=== PATIENT | female | born 1940 | race Caucasian/White ===

== ENCOUNTER 2016-08-22 08:20 | Observation (INO) ==
[2016-08-22 09:08] LABS: Basophils % 0.6 %; Eosinophils # 0.3 K/mcL (0.0-0.6); Eosinophils % 4.7 %; Hematocrit 38.7 % (35.3-44.9); Hemoglobin 12.9 g/dL (11.5-15.4); Immature Granulocytes % 0.3 % (0-4); Lymphocytes # 0.6 K/mcL (0.6-4.6); Lymphocytes % 8.6 %; Mean Corpuscular HGB Conc 33.3 g/dL (31.6-35.5); Mean Corpuscular Hemoglobin 29.2 pg (28.0-33.3); Mean Corpuscular Volume 87.6 fL (83.0-100.0); Mean Platelet Volume 9.8 fL (9.4-12.4); Monocytes # 0.5 K/mcL (0.0-1.3); Monocytes % 7.5 %; Neutrophils # 5.6 K/mcL (1.6-8.9); Platelet Count 188 K/mcL (140-400); Red Blood Count 4.42 M/mcL (3.82-4.97); Segmented Neutrophils % 78.3 %
--- NOTE | 2016-08-22 09:13 | Emergency Department Note ---
Disposition Clinical Impression: CHF (congestive heart failure) Qualifiers: Congestive heart failure type: unspecified congestive heart failure type Congestive heart failure chronicity: unspecified congestive heart failure chronicity Qualified Code(s): I50.9 - Heart failure, unspecified Dyspnea Qualifiers: Dyspnea type: dyspnea on exertion Qualified Code(s): R06.09 - Other forms of dyspnea Disposition: Admitted As Inpatient Condition: Good Time of Disposition: 11:46 SOB HPI - General Chief Complaint: ED Shortness of Breath/Dyspnea Stated Complaint: shortness of breath Time Seen by Provider: 08/22/16 08:44 Source: patient Mode of arrival: ambulatory Limitations: no limitations Nursing Notes Reviewed: Yes Vital Signs Reviewed: Yes - History of Present Illness Pt Subjective Complaint: shortness of breath Onset (ago): day(s) Consistency/Duration: gradually worsening Improves with: nothing Worsens with: exertion Known history of: COPD, congestive heart failure, other (lung cancer) Associated symptoms: Reports: cough. Denies: chest pain, fever, sputum production, nausea/vomiting, abdominal pain Treatment prior to arrival: oxygen, other (had seen PCP three days ago, and Dr. Branch's office (cardiolgoist) this am, sent to ED from there) Cough present: Yes Cough Description: Non-Productive - Related Data Home Medications Medication Instructions Recorded Confirmed Clopidogrel [Plavix] 75 mg PO DAILY 05/15/15 08/22/16 Aspirin Enteric Coated [Aspirin EC] 81 mg PO DAILY 07/17/15 08/22/16 Ergocalciferol (VITAMIN D2) 2,000 unit PO DAILY 07/17/15 08/22/16 [Vitamin D2] Isosorbide MONOnitrate (24 HR) 30 mg PO DAILY 06/08/16 08/22/16 [Imdur] Levothyroxine [Synthroid] 75 mcg PO DAILY 06/08/16 08/22/16 Diltiazem CD (24hr) [Cardizem CD] 120 mg PO DAILY 08/22/16 08/22/16 Oxygen 2 l .ROUTE AD 08/22/16 08/22/16 Allergies Allergy/AdvReac Type Severity Reaction Status Date / Time No Known Allergies Allergy Verified 08/22/16 08:29 Constitutional: Denies: fever, chills, weakness ENT ED: Denies: throat pain, congestion Cardiovascular: Denies: chest pain Respiratory: Reports: as per HPI. Denies: dyspnea Gastrointestinal: Denies: abdominal pain Genitourinary: Denies: dysuria Musculoskeletal: Denies: back pain Integumentary: Denies: rash Neurological: Denies: headache Psychiatric: Denies: anxiety, depression Hematological/Lymphatic: Denies: easy bleeding Allergic/Immunologic: Denies: facial swelling Past Medical History - Past Medical History Medical history: Reports: cancer, CHF, COPD, coronary artery disease, diabetes, hypertension, myocardial infarction, renal disease Surgical history: Reports: angioplasty/stent, other Psychiatric history: Reports: no psych history [employer] history: Reports: non-contributory - Social History Smoking Status: Former smoker Smokeless Tobacco Status: No Alcohol use: Reports: none Drug use: Reports: none Physical Exam - General Limitations: no limitations General appearance: alert, in no apparent distress - Head Head exam: normocephalic - Eye Eye exam: Present: EOMI. Absent: conjunctival injection - ENT ENT exam: mucous membranes moist - Neck Neck exam: Present: full ROM - Chest Chest inspection: Present: symmetric chest wall rise - Respiratory Respiratory exam: Present: other (lungs soudns course, without wheezing or rales ; equal bilaterally). Absent: respiratory distress, wheezes - Cardiovascular Cardiovascular exam: Present: regular rate. Absent: tachycardia - Abdominal Exam Abdominal exam: Present: soft, Non-Tender - Extremities Exam Extremities exam: Present: normal inspection, full ROM, normal capillary refill - Back Exam Back exam: Present: full ROM - Neurological Exam Neurological exam: Present: alert - Psychiatric Psychiatric exam: Present: normal affect, normal mood - Skin Skin exam: Present: warm, dry, intact, normal color. Absent: rash, cyanosis, diaphoresis Course Course Narrative: 76-year-old female that ambulates to exam room with complaints of dyspnea. She states her shortness of breath has been occurring over the past week, but had worsened over the night. She had seen her primary care doctor on Wednesday, and her publicity manager this morning. Her publicity manager, Dr. Branch, had advised the patient be seen in the emergency department. She reported Dr. Branch was concerned for pulmonary embolism, and this concerned for her CHF. Patient seen and examined. Workup initiated. - Reevaluation(s) Reevaluation #1: I discussed patient with Dr. Weldon who also had a stomach palpation. Patient was seen earlier in Dr. Kevin's office today and was sent emergency department. Dr. Branch and contact the department and talked with Dr. Humphries. Dr. Weldon reports that Dr. Branch was concerned for a pulmonary embolism, and mentioned that there was less concerned for wheezing or CHF. Examination patient did appear dyspnea worse with exertion and conversation, and lungs sounds were coarse. He will administer IV steroids and breathing treatment. Patient does have a history of CHF, and does have an elevated creatinine. We will administer fluids, and consider VQ or CTA. We will plan for admission. Time: 10:31 Reevaluation #2: Discussed patient with CT staff, who mentioned the patient's GFR and creatinine are concerning and would likely need okay from radiologist. Radiologist contacted no answer left message. Time: 11:23 Reevaluation #3: I discussed my discussion with the radiologist with Dr. Weldon, specifically recommendations were no CT at this time but VQ scan. Patient vitals are stable. Not tachycardic. She appears in no acute distress. She states her dyspnea has improved. Will will recommend admission for CHF exacerbation, and discussed with hospitalist need for V/Q imaging for concern for PE. Pt was discussed with hospitalist Dr. Salcido, who advised IV lasix and agreed to accept patient. Pt reports no improvement after duoneb and iv steroids. Time: 11:45 - Consultations Consultation #1: Radiologist was contacted, and I spoke with and discussed pt with radiologist Valentin Saravia, who advised that worsening renal failure from contrast is most likely in patients with this level chronic kidney disease. She advised a VQ scan initially, to determine if it is inconclusive before CTA. Time: 11:32 Vital Signs Temperature 97.4 F L 08/22/16 08:26 Pulse Rate 98 08/22/16 08:26 Respiratory Rate 20 08/22/16 08:26 Blood Pressure 161/78 08/22/16 08:26 O2 Sat by Pulse Oximetry 94 08/22/16 08:26 Temperature 97.6 F 08/22/16 13:58 Pulse Rate 89 08/22/16 13:58 Respiratory Rate 24 08/22/16 13:58 Blood Pressure 143/83 08/22/16 13:58 O2 Sat by Pulse Oximetry 95 08/22/16 13:58 Oxygen Delivery Oxygen Delivery Nasal Cannula Shortness of Breath/Dyspnea - MDM Narrative Medical decision making narrative: Chest X-Ray 08/22/16 08:46 IMPRESSION: 1. Stable volume loss, scarring and posttreatment change of the left lung compared to previous radiographs and previous CT. 2. No superimposed acute process is identified. 3. Emphysema. D/ / 08/22/2016 09:00:45 Benitez Morejon MD / bcarter Interpreting Provider: Benitez Morejon MD All Lab Results (24 Hours) 08/22/16 08/22/16 08/22/16 Range/Units 08:56 08:56 08:56 WBC 7.2 (4.3-11.1) K/mcL RBC 4.42 (3.82-4.97) M/mcL Hgb 12.9 (11.5-15.4) g/dL Hct 38.7 (35.3-44.9) % MCV 87.6 (83.0-100.0) fL MCH 29.2 (28.0-33.3) pg MCHC 33.3 (31.6-35.5) g/dL RDW 14.0 (11.5-14.5) % Plt Count 188 (140-400) K/mcL MPV 9.8 (9.4-12.4) fL Immature Gran % 0.3 (0-4) % Seg Neutrophils % 78.3 % Lymphocytes % 8.6 % Monocytes % 7.5 % Eosinophils % 4.7 % Basophils % 0.6 % Neutrophils # 5.6 (1.6-8.9) K/mcL Lymphocytes # 0.6 (0.6-4.6) K/mcL Monocytes # 0.5 (0.0-1.3) K/mcL Eosinophils # 0.3 (0.0-0.6) K/mcL Basophils # 0.0 (0.0-0.2) K/mcL Sodium 138 (136-145) mEq/L Potassium 3.5 (3.5-4.5) mEq/L Chloride 107 (98-109) mEq/L Carbon Dioxide 22 (19-29) mEq/L BUN 27 H (7-20) mg/dL Creatinine 1.75 H (0.57-1.11) mg/dL Est GFR ( Amer) 34 L (> 60) Est GFR (Non-Af Amer) 28 L (> 60) BUN/Creatinine Ratio 15 (6-26) Glucose 157 H (70-99) mg/dL Calculated Osmolality 294 (280-300) Calcium 9.8 (8.6-10.8) mg/dL Troponin I 0.02 (0-0.03) ng/mL B-Natriuretic Peptide (0-100) pg/mL 08/22/16 Range/Units 08:56 WBC (4.3-11.1) K/mcL RBC (3.82-4.97) M/mcL Hgb (11.5-15.4) g/dL Hct (35.3-44.9) % MCV (83.0-100.0) fL MCH (28.0-33.3) pg MCHC (31.6-35.5) g/dL RDW (11.5-14.5) % Plt Count (140-400) K/mcL MPV (9.4-12.4) fL Immature Gran % (0-4) % Seg Neutrophils % % Lymphocytes % % Monocytes % % Eosinophils % % Basophils % % Neutrophils # (1.6-8.9) K/mcL Lymphocytes # (0.6-4.6) K/mcL Monocytes # (0.0-1.3) K/mcL Eosinophils # (0.0-0.6) K/mcL Basophils # (0.0-0.2) K/mcL Sodium (136-145) mEq/L Potassium (3.5-4.5) mEq/L Chloride (98-109) mEq/L Carbon Dioxide (19-29) mEq/L BUN (7-20) mg/dL Creatinine (0.57-1.11) mg/dL Est GFR ( Amer) (> 60) Est GFR (Non-Af Amer) (> 60) BUN/Creatinine Ratio (6-26) Glucose (70-99) mg/dL Calculated Osmolality (280-300) Calcium (8.6-10.8) mg/dL Troponin I (0-0.03) ng/mL B-Natriuretic Peptide 943 H (0-100) pg/mL - Differential Diagnosis Likely: acute exacerbation of chronic obstructive airways disease, congestive heart failure, pneumonia, pulmonary embolism, arrhythmia - Medical Records Medical records reviewed: Yes I reviewed the patient's medical records. - Lab Data Lab results reviewed: Yes I reviewed the patient's lab results. Result diagrams: 08/22/16 08:56 08/22/16 08:56 Lab Results 08/22/16 08/22/16 08/22/16 Range/Units 08:56 08:56 08:56 WBC 7.2 (4.3-11.1) K/mcL RBC 4.42 (3.82-4.97) M/mcL Hgb 12.9 (11.5-15.4) g/dL Hct 38.7 (35.3-44.9) % MCV 87.6 (83.0-100.0) fL MCH 29.2 (28.0-33.3) pg MCHC 33.3 (31.6-35.5) g/dL RDW 14.0 (11.5-14.5) % Plt Count 188 (140-400) K/mcL MPV 9.8 (9.4-12.4) fL Immature Gran % 0.3 (0-4) % Seg Neutrophils % 78.3 % Lymphocytes % 8.6 % Monocytes % 7.5 % Eosinophils % 4.7 % Basophils % 0.6 % Neutrophils # 5.6 (1.6-8.9) K/mcL Lymphocytes # 0.6 (0.6-4.6) K/mcL Monocytes # 0.5 (0.0-1.3) K/mcL Eosinophils # 0.3 (0.0-0.6) K/mcL Basophils # 0.0 (0.0-0.2) K/mcL Sodium 138 (136-145) mEq/L Potassium 3.5 (3.5-4.5) mEq/L Chloride 107 (98-109) mEq/L Carbon Dioxide 22 (19-29) mEq/L BUN 27 H (7-20) mg/dL Creatinine 1.75 H (0.57-1.11) mg/dL Est GFR ( Amer) 34 L (> 60) Est GFR (Non-Af Amer) 28 L (> 60) BUN/Creatinine Ratio 15 (6-26) Glucose 157 H (70-99) mg/dL Calculated Osmolality 294 (280-300) Calcium 9.8 (8.6-10.8) mg/dL Troponin I 0.02 (0-0.03) ng/mL B-Natriuretic Peptide (0-100) pg/mL 08/22/16 Range/Units 08:56 WBC (4.3-11.1) K/mcL RBC (3.82-4.97) M/mcL Hgb (11.5-15.4) g/dL Hct (35.3-44.9) % MCV (83.0-100.0) fL MCH (28.0-33.3) pg MCHC (31.6-35.5) g/dL RDW (11.5-14.5) % Plt Count (140-400) K/mcL MPV (9.4-12.4) fL Immature Gran % (0-4) % Seg Neutrophils % % Lymphocytes % % Monocytes % % Eosinophils % % Basophils % % Neutrophils # (1.6-8.9) K/mcL Lymphocytes # (0.6-4.6) K/mcL Monocytes # (0.0-1.3) K/mcL Eosinophils # (0.0-0.6) K/mcL Basophils # (0.0-0.2) K/mcL Sodium (136-145) mEq/L Potassium (3.5-4.5) mEq/L Chloride (98-109) mEq/L Carbon Dioxide (19-29) mEq/L BUN (7-20) mg/dL Creatinine (0.57-1.11) mg/dL Est GFR ( Amer) (> 60) Est GFR (Non-Af Amer) (> 60) BUN/Creatinine Ratio (6-26) Glucose (70-99) mg/dL Calculated Osmolality (280-300) Calcium (8.6-10.8) mg/dL Troponin I (0-0.03) ng/mL B-Natriuretic Peptide 943 H (0-100) pg/mL - Radiology Data Radiology results reviewed: Yes I reviewed the patient's radiology results. Emphysematous changes, no acute cardiopulmonary concerns, notable treatment scarring - EKG Data EKG attestation: Yes I reviewed and interpreted this EKG. EKG results narrative: Sinus rhythm with occasional PVCs, left ventricular hypertrophy Attestation Statement - Attestation Attestation: I personally interviewed examined this patient and my medical decision-making was reviewed with the DIRECTOR CLINICAL APPLICATIONS/PA/Advanced Practice Nurse/Resident Physician. I agree with the documented findings, disposition and treatment plan as described except to the extent set forth below. Disposition is a 76-year-old female with a history of CHF, COPD, CAD who presents to the emergency department sent by her publicity manager, Dr. Branch, for shortness of breath. Patient had been seen in his office this morning for complaints of shortness of breath, patient also has a history of cancer and he was concerned about the possibility for PE creating her shortness of breath. He did not feel at times his examination that the patient was short of breath secondary to her CHF history. Patient also with history of COPD. Arrival to the ED patient was in mild respiratory distress, room air sats were 92-94% and she is not on home O2. Patient with increased work of breathing and conversational dyspnea on initial assessment. Patient with coarse breath sounds throughout bilateral lung jonas and heart regular rate and rhythm. Patient with lower extremity edema 1+ pitting bilaterally. Patient denies any complaints of chest pain pressure or heaviness, no palpitations, no cough associated with this shortness of breath, no fevers or chills, no other associated symptoms. Patient was placed on supplemental O2 with improvement in her room air sats, placed on rn cardiac rehab and EKG was obtained. EKG did not show any acute ST- T wave changes. Labs were drawn and sent portal chest x-ray was obtained. Patient also received aerosols and IV steroids for possible COPD exacerbation contributing to her shortness of breath. I agree with her physical exam findings as documented. Patient with gradual improvement throughout her ED course. Patient remained hemodynamically stable throughout her ED course with no tachycardia or hypotension. Patient's labs were unremarkable, chronic renal insufficiency. BNP was elevated. Chest x-ray showed no acute process, no infiltrates or effusions, no evidence of CHF, changes consistent with emphysema. Patient denied much improvement following aerosols and steroids, but clinically she is much improved with decrease in her respiratory rate, stable vital signs and much less work of breathing. Did speak with radiology in regards to obtaining a CTA to rule out PE as patient was sent by Dr. Branch for this as a possible etiology of her shortness breath. Due to her renal function the radiologist will not approve a CTA this time even with fluid resuscitation. Suggested VQ scan. Patient clinically much improved from arrival, suspect a combination of acute exacerbation of COPD as well as mild CHF exacerbation. Spoke with the hospitalist who accepted the patient for admission, relayed concerns of patient' s publicity manager and we will reevaluate and determine if patient should ultimately have the CT scan prior to discharge. Hospitalist requested IV Lasix and except patient for admission. Patient clinically much improved and vital signs stable at this time.
[2016-08-22 09:25] LABS: Calcium 9.8 mg/dL (8.6-10.8); Potassium 3.5 mEq/L (3.5-4.5)
[2016-08-22] MEDS ORDERED: Ipratropium/Albuterol Neb 3 ML IH ONE ×2 (10:13→10:23)
[2016-08-22] MEDS ORDERED: MethylPREDNISolone 40 MG/ML VIAL IVP ONE (10:23)
[2016-08-22] MEDS ORDERED: Furosemide 40 MG/4 ML VIAL IVP ONE (11:44)
[2016-08-22] MEDS ORDERED: *HR* Morphine 2 MG/ML SYRINGE IVP PRN (14:30)
[2016-08-22] MEDS ORDERED: Ondansetron 4 MG/2 ML VIAL IVP PRN (14:30)
[2016-08-22] MEDS ORDERED: Naloxone 0.4 MG/ML INJ IVP PRN (14:30)
[2016-08-22] MEDS ORDERED: *HR* HYDROcodone/Acet 5/325 mg TABLET PO PRN (14:30)
[2016-08-22] MEDS ORDERED: Acetaminophen 325 MG TABLET PO PRN (14:30)
--- NOTE | 2016-08-22 14:51 | Internal Med History&Physical ---
<Shen Kaur - Last Filed: 08/22/16 17:51> Date of Encounter: 08/22/16 Time of Encounter: 14:00 Assessment and Plan (1) Acute exacerbation of CHF (congestive heart failure) Current visit: Yes Status: Acute Patient presents with acute exacerbation of congestive heart failure. Currently patient does not appear to be fluid overloaded and lower extremities are negative for pedal edema bilaterally. Fluid restriction diet of 1.5 L daily and renal diet ordered. Will monitor I&O and daily weight. Patient was taken off Lasix due to stage IV CKD, so will monitor for signs of edema and fluid overload. Qualifiers: Congestive heart failure type: unspecified congestive heart failure type Qualified Code(s): I50.9 - Heart failure, unspecified (2) Acute exacerbation of chronic obstructive pulmonary disease (COPD) Current visit: Yes Status: Acute Patient presents with symptoms of acute exacerbation of chronic obstructive pulmonary disease. Patient reports extreme shortness of breath with exertion. There is suspicion of possible PE due to patient's symptomotoogy. Will order D- dimer stat and bilateral venous Doppler of lower extremities. Will consider CTA with contrast based on venous Doppler and d-dimer results (will administer acetylcystine/IV fluids prior to CTA due to patient's renal function). DuoNebs ordered every 4, supplemental O2 with titration and continuous SPO2 monitoring, monitor patient and vital signs, falls precautions/up with assist/bedrest with bathroom privileges status. (3) Hyperlipidemia Current visit: Yes Status: Chronic Patient presents with history of chronic hyperlipidemia. Will order lipid panel. Qualifiers: Hyperlipidemia type: pure hypercholesterolemia Qualified Code(s): E78.00 - Pure hypercholesterolemia, unspecified; E78.0 - Pure hypercholesterolemia (4) Diabetes Current visit: Yes Status: Chronic Patient presents with history of chronic diabetes. Patient reports she was taken off hyperglycemics due to stage IV CKD. Blood glucose monitoring every 6. Qualifiers: Diabetes mellitus type: type 2 Diabetes mellitus complication status: with unspecified complications Diabetes mellitus group home insulin use: unspecified group home insulin use status Qualified Code(s): E11.8 - Type 2 diabetes mellitus with unspecified complications (5) Hypertension Current visit: Yes Status: Chronic Patient presents with history of chronic hypertension. Will monitor patient and vital signs. Qualifiers: Hypertension type: essential hypertension Qualified Code(s): I10 - Essential (primary) hypertension (6) Hypothyroidism Current visit: Yes Status: Chronic Reason presents with history of chronic hypothyroidism. Continue Synthroid. Qualifiers: Hypothyroidism type: unspecified Qualified Code(s): E03.9 - Hypothyroidism , unspecified (7) CAD (coronary artery disease) Current visit: Yes Status: Chronic Patient also presents with history of coronary artery disease with reported SD in 2015 and placement of one stent. Will continue aspirin therapy, Plavix, Cardizem, and isosorbide. Qualifiers: Coronary Disease-Associated Artery/Lesion type: [place] artery [place] vs. transplanted heart: [place] heart Associated angina: without angina Qualified Code(s): I25.10 - Atherosclerotic heart disease of [place] coronary artery without angina pectoris (8) DVT prophylaxis Current visit: No Status: Acute Patient to receive DVT prophylaxis due to admission protocol and current risk factors. Lovenox 30 mg SQ 06:00 due to stage IV CKD. Internal Medicine - H&P: HPI Chief complaint: SOB w/exertion Admitted From: Emergency Dept Plans for Post Hospital Care: Home History of present illness: Mrs. Piña is a 76 year old female who presents from the ED with chief complaint of extreme shortness of breath with exertion which has been ongoing but became much worse last night. Patient states she is on 2 L of home oxygen normally but required more last night due to SOB. Patient denies use of BiPAP or CPAP at home. Patient states she has cough related to her COPD but does not produce sputum. Patient states she smoked half pack per day but quit in May 2014 when she had a heart attack (angioplasty with 1 stent placement). Patient denies chest pain, fever, nausea, vomiting, abdominal pain, generalized weakness , excessive sputum production, diaphoresis, presyncope, or syncope. Mrs. Piña has history of lung cancer which was diagnosed in 2014 for which she takes chemotherapy every 2 weeks. She states lung cancer was originally in her left lung which was treated successfully, but then moved to her right lung. Patient also has history of CHF, COPD, CAD, diabetes, hypertension, myocardial infarction, thyroid disease, and stage IV chronic kidney disease. Patient is at moderate risk for respiratory decline based on her risk factors of CHF and COPD and will be placed as observation status with continuous cardiac telemetry , supplemental O2 with titration if SPO2 less than 92%, continuous SPO2 monitoring, fluid restriction diet (1.5L daily) and renal diet. Will check D- dimer and bilateral venous Doppler stat. EV echocardiogram to be orderd. We will monitor I&O and daily weight and continue patient's home medications. Time spent with patient >40 minutes. Past Med Surg Social Fam HX - Past Medical History Source: patient Medical history: cancer, CHF, COPD, coronary artery disease, diabetes, hypertension, myocardial infarction, renal disease Psychiatric history: no psych history - Past Surgical History Surgical History: angioplasty/stent, other (Tubal ligation) - Social History Smoking Status: Former smoker Packs per day: 1/2 - 1 PPD Reports quitting in May 2014 Smokeless Tobacco Status: No Alcohol use: none Drug use: none Occupational status: previously employed Current living situation: Home, With Family Activity Level: Independent ambulation Recent Out of Country Travel Within the Last 8 Weeks: No Exposure or Possible Exposure to Illness During Travel: No - Family History Mother Race: Family Member Ethnicity: Non- Living Status: Father Race: Family Member Ethnicity: Non- Living Status: Hx Family Cardiac Disorders: Yes (Aneurysm) Sister Race: Family Member Ethnicity: Non- Age at : 79 Cause of : Unknown Brother Race: Family Member Ethnicity: Non- Living Status: Age at : 75 Cause of : SD Hx Family Cardiac Disorders: Yes (SD) Internal Medicine - H&P: Meds Clopidogrel [Plavix] 75 mg PO DAILY 05/15/15 [History] Aspirin Enteric Coated [Aspirin EC] 81 mg PO DAILY 07/17/15 [History] Ergocalciferol (VITAMIN D2) [Vitamin D2] 2,000 unit PO DAILY 07/17/15 [History] Isosorbide MONOnitrate (24 HR) [Imdur] 30 mg PO DAILY 06/08/16 [History] Levothyroxine [Synthroid] 75 mcg PO DAILY 06/08/16 [History] Diltiazem CD (24hr) [Cardizem CD] 120 mg PO DAILY 08/22/16 [History] Oxygen 2 l .ROUTE AD 08/22/16 [History] Allergies No Known Allergies Allergy (Verified 08/22/16 08:29) All Systems PM: A 10-system review of systems was performed and is negative for pertinent findings except as documented above in the HPI. - Constitutional Constitutional: no chills, no fever(s), no night sweats - EENT Eyes: no change in vision, no discharge, no pain, no photophobia Ears: no ear discharge, no ear pain, no tinnitus Nose, mouth and throat: no dysphagia, no nasal discharge, no neck pain, no sore throat - Breasts Breasts: as per HPI - Cardiovascular Cardiovascular ROS IM: as per HPI, dyspnea on exertion, no chest pain, no diaphoresis, no dyspnea, no lightheadedness, no palpitations, no syncope - Respiratory Respiratory: as per HPI, cough, dyspnea on exertion - Gastrointestinal Gastrointestinal: no abdominal pain, no diarrhea, no hematemesis, no hematochezia, no melena, no nausea, no vomiting - Genitourinary Genitourinary: no change in urinary stream, no dysuria, no flank pain, no hematuria Menstruation: as per HPI, post menopausal - Musculoskeletal Musculoskeletal ROS IM: no numbness, no tingling - Integumentary Integumentary IM: no rash, no unusual bruising - Neurological Neurological ROS: no confusion, no convulsions, no focal weakness, no numbness, no tingling, no tremor(s) - Psychiatric Psychiatric: as per HPI - Endocrine Endocrine IM: as per HPI - Hematologic/Lymphatic Hematologic/Lymphatic: no easy bruising - Allergic/Immunologic Allergic/Immunologic: as per HPI - Constitutional Vitals: Temp Pulse Resp BP Pulse Ox 97.6 F 89 24 143/83 95 08/22/16 13:58 08/22/16 13:58 08/22/16 13:58 08/22/16 13:58 08/22/16 13:58 General appearance: Present: cooperative, mild distress (Mild respiratory distress with speaking), A&O X 3, obese, answers questions appropriately - Head Head exam: Present: atraumatic, normocephalic - Eye Eye exam: Present: PERRL, conjuntiva pink, sclera anicteric Pupils: Present: PERRL - ENT ENT exam: Present: normal exam, normal external ear exam - Neck Neck exam general surgery: Present: supple, trachea midline. Absent: lymphadenopathy - Respiratory Respiratory exam: Present: CTAB, wheezes (Bilaterally all lobes). Absent: accessory muscle use, rales, rhonchi - Cardiovascular Cardiovascular exam: Present: RRR, +S1, +S2. Absent: diastolic murmur, gallop, rubs, systolic murmur - GI/Abdominal GI/Abdominal exam: Present: normal bowel sounds, soft, no peritoneal signs. Absent: distended, tenderness - Rectal Rectal exam: Present: deferred - Additional comments: exam deferred. - Extremities Exam Extremities exam: Present: warm, radial pulses palpable and symetrical. Absent : calf tenderness, cyanotic, pedal edema - Back Exam Back exam: Present: normal inspection - Neurological Exam Neurological exam: Present: CN II-XII intact, oriented X3, no focal deficits. Absent: pronater drift, facial droop, speech deficit - Psychiatric Psychiatric exam: Present: normal affect, normal mood - Skin Skin exam: Present: dry, intact Internal Med - H&P Results - Labs CBC & Chem 7: 08/22/16 08:56 08/22/16 08:56 - EKG Data Prior EKG available for review: yes EKG comments: 08/22/16 15:14 EKG dated 07/17/15 shows sinus rhythm with nonspecific T-wave abnormality. EKG dated 08/22/16 shows sinus rhythm with occasional ventricular premature complexes, left ventricular hypertrophy, and ST-T change. - Diagnostic Studies Chest x-ray Additional comments: Impressions Chest X-Ray 08/22/16 08:46 IMPRESSION: 1. Stable volume loss, scarring and posttreatment change of the left lung compared to previous radiographs and previous CT. 2. No superimposed acute process is identified. 3. Emphysema. D/ / 08/22/2016 09:00:45 Benitez Morejon MD / candice Interpreting Provider: Benitez Morejon MD <Eloisa Salcido - Last Filed: 08/22/16 18:01> Date of Encounter: 08/22/16 Time of Encounter: 15:30 Internal Medicine - H&P: HPI History of present illness: Ms. Piña is a 76 year old female All Systems PM: A 10-system review of systems was performed and is negative for pertinent findings except as documented above in the HPI. - Constitutional Vitals: Temp Pulse Resp BP Pulse Ox 97.6 F 89 24 143/83 95 08/22/16 13:58 08/22/16 13:58 08/22/16 13:58 08/22/16 13:58 08/22/16 13:58 Internal Med - H&P Results - Labs CBC & Chem 7: 08/22/16 08:56 08/22/16 08:56 - Attending Attestation I examined this patient and my medical decision-making was reviewed with the nurse practitioner. I agree with the documented history of present illness, review of systems, past medical, surgical social and family histories and examination findings, disposition and treatment plan as described above except to any changes set forth below. 76-year-old female patient with history of COPD, coronary artery disease, hypertension, chronic kidney disease presented to the ER with complaints of shortness of breath that had been going on for the past week but got much worse last night. She has a nebulizer at home but does not have the albuterol ampules to use with it. As her symptoms did not improve, she came to the ER. She denies any chest pain. No fever or chills. No nausea or vomiting. On examination, she has bilateral expiratory wheezing and inspiratory rhonchi. Systolic murmur. S1 and S2 are normal. Bilateral pedal edema present. Chest x-ray shows emphysema. With stable volume loss on the left lung. Acute exacerbation of COPD: We will treat with IV steroids, bronchodilators. And O2 supplementation. No indication for antibiotics as patient has not had any increase in cough and is not having any productive sputum. Acute exacerbation of CHF: Patient has an elevated BNP and was also having pedal edema. We will treat with Lasix. Fluid restriction. We will monitor vital signs. We will get 2-D echocardiogram. Essential hypertension: Resume home medications with this. Coronary artery disease: Not having chest pain. Continue aspirin, Plavix and Imdur.
[2016-08-22] MEDS: Ipratropium/Albuterol Neb 3 ML IH SCH ×3 (15:42→23:59)
[2016-08-22] MEDS: Furosemide 20 MG/2 ML VIAL IVP SCH (19:17)
[2016-08-23 03:28] LABS: INR 1.1; Prothrombin Time 11.7 Seconds (9.4-12.1)
[2016-08-23 03:30] LABS: Activated Partial Thrombo Time 27.1 Seconds (26.0-36.0)
[2016-08-23 03:33] LABS: Albumin 3.3 g/dL (3.5-5.0); Bilirubin,Total 0.5 mg/dL (0.2-1.2); Calcium 9.3 mg/dL (8.6-10.8); Chol/HDL Ratio 3.9 (0-4.9); Globulin 3.2 g/dL (2.4-3.5); Potassium 3.7 mEq/L (3.5-4.5); Total Protein 6.5 g/dL (6.0-8.3)
[2016-08-23 03:38] LABS: Basophils % 0.1 %; Hematocrit 36.1 % (35.3-44.9); Hemoglobin 11.7 g/dL (11.5-15.4); Immature Granulocytes % 0.4 % (0-4); Lymphocytes # 0.2 K/mcL (0.6-4.6); Lymphocytes % 2.7 %; Mean Corpuscular HGB Conc 32.4 g/dL (31.6-35.5); Mean Corpuscular Hemoglobin 28.1 pg (28.0-33.3); Mean Corpuscular Volume 86.8 fL (83.0-100.0); Mean Platelet Volume 10.2 fL (9.4-12.4); Monocytes # 0.2 K/mcL (0.0-1.3); Platelet Count 199 K/mcL (140-400); Red Blood Count 4.16 M/mcL (3.82-4.97); Segmented Neutrophils % 94.8 %
[2016-08-23] MEDS: Ipratropium/Albuterol Neb 3 ML IH SCH ×6 (04:24→23:24)
[2016-08-23] MEDS: *HR* Enoxaparin 30 MG/0.3 ML SYRINGE SQ SCH (05:24)
--- NOTE | 2016-08-23 09:34 | Internal Med Progress Note ---
Date of Encounter: 08/23/16 Time of Encounter: 08:20 - Assessment and plan (1) Acute exacerbation of CHF (congestive heart failure) Current Visit: Yes Status: Acute Assessment and plan: Patient admitted for acute exacerbation of COPD. BNP 680. Her lungs are clear she has minimal peripheral edema. Echocardiogram from Jun, 2015 shows moderately directly related left ventricle, moderately decreased LV systolic function, LVEF 35-40%. There are regional wall motion abnormalities. Normal right ventricular structure and function, severely dilated left atrium. Thickened calcified mitral valve leaflets, severe eccentric mitral regurgitation, mild pulmonary hypertension. Continue telemetry Continue Lasix Fluid restriction 1.5 L Strict intake and output and daily weight Renal diet Qualifiers: Congestive heart failure type: systolic Qualified Code(s): I50.23 - Acute on chronic systolic (congestive) heart failure (2) Hypertension Current Visit: Yes Status: Chronic Assessment and plan: Chronic. Continue home medication. Qualifiers: Hypertension type: essential hypertension Qualified Code(s): I10 - Essential (primary) hypertension (3) Lung cancer Current Visit: No Status: Chronic Assessment and plan: She has history of left lung cancer. Patient now has right lung cancer and is receiving chemotherapy at the cancer center every 2 weeks. Last treatment was Wednesday. Qualifiers: Laterality: right Lung location: unspecified part of lung Qualified Code( s): C34.91 - Malignant neoplasm of unspecified part of right bronchus or lung (4) CAD (coronary artery disease) Current Visit: Yes Status: Chronic Assessment and plan: Chronic. Continue aspirin, Plavix, Cardizem, and Imdur Qualifiers: Coronary Disease-Associated Artery/Lesion type: [place] artery [place] vs. transplanted heart: [place] heart Associated angina: without angina Qualified Code(s): I25.10 - Atherosclerotic heart disease of [place] coronary artery without angina pectoris (5) Hyperlipidemia Current Visit: Yes Status: Chronic Assessment and plan: Lipid panels within normal limits. Patient is not on a statin. Qualifiers: Hyperlipidemia type: pure hypercholesterolemia Qualified Code(s): E78.00 - Pure hypercholesterolemia, unspecified; E78.0 - Pure hypercholesterolemia (6) Diabetes Current Visit: Yes Status: Chronic Assessment and plan: Last A1c in January was 5.5. Will order repeat. Accu-Cheks every 6 hours. Diabetic and renal diet. I have added insulin coverage for hyperglycemic episodes. 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 Continue home medications. Qualifiers: Hypothyroidism type: unspecified Qualified Code(s): E03.9 - Hypothyroidism , unspecified (8) COPD (chronic obstructive pulmonary disease) Current Visit: No Status: Chronic Assessment and plan: Patient reports extreme shortness of breath with exertion. There was a suspicion of possible PE on arrival to emergency department d-dimer was elevated. Lower extremity Doppler is still pending at this time. Lungs are clear. Diminished. There is no wheezing, rales, rhonchi, respiratory distress , or stridor. Continue DuoNeb's Oxygen as needed to maintain sats greater than 92% Chief Environmental Commitment Officer vital signs Continue monitor labs and patient condition. Qualifiers: COPD type: chronic bronchitis Chronic bronchitis type: mixed simple and mucopurulent Qualified Code(s): J41.8 - Mixed simple and mucopurulent chronic bronchitis (9) CKD (chronic kidney disease) stage 4, GFR 15-29 ml/min Current Visit: Yes Status: Acute Assessment and plan: GFR 21, creatinine 2.27. Avoid nephrotoxins, monitor labs, avoid NSAIDs. - Time Spent With Patient less than 15 minutes - Subjective Interval history: Patient was seen and examined this morning at 8:20 AM. She is alert and oriented. She appears to be in no distress. Her lungs are clear and diminished. She has minimal pedal edema. Patient had prior lung cancer to left lung, current right lung. She does go to cancer Center and gets chemotherapy every 2 weeks. Last treatment was on Wednesday. Due to her list of comorbidities, patient will stay again overnight for continued diuresis and monitoring of renal function and BNP, as well as respiratory status. - Constitutional Vitals: Temp Pulse Resp BP Pulse Ox 97.5 F L 89 18 137/80 95 08/23/16 06:43 08/23/16 06:43 08/23/16 07:17 08/23/16 07:17 08/23/16 07:17 General appearance: Present: cooperative, mild distress (Mild respiratory distress with speaking), A&O X 3, obese, answers questions appropriately - Head Head exam: Present: normal inspection - Eye Eye exam: Present: normal appearance, conjuntiva pink - ENT ENT exam: Present: mucous membranes moist, normal exam, normal external ear exam - Neck Neck exam general surgery: Present: normal inspection. Absent: lymphadenopathy , tenderness - Respiratory Respiratory exam: Present: decreased breath sounds, CTAB. Absent: accessory muscle use, rales, respiratory distress, rhonchi, stridor, wheezes - Cardiovascular Cardiovascular exam: Present: RRR, +S1, +S2. Absent: diastolic murmur, systolic murmur - GI/Abdominal GI/Abdominal exam: Present: normal bowel sounds, soft. Absent: hernia, hepatomegaly, tenderness - Extremities Exam Extremities exam: Present: normal capillary refill, normal inspection, warm, radial pulses palpable and symetrical. Absent: calf tenderness, pedal edema, tenderness - Neurological Exam Neurological exam: Present: alert, oriented X3, no focal deficits. Absent: facial droop, speech deficit - Skin Skin exam: Present: dry, intact, normal color, warm Internal Medicine: Result - Labs CBC & Chem 7: 08/23/16 02:21 08/23/16 02:21 Labs: Short CBC 08/23/16 Range/Units 02:21 WBC 7.4 (4.3-11.1) K/mcL Hgb 11.7 (11.5-15.4) g/dL Hct 36.1 (35.3-44.9) % Plt Count 199 (140-400) K/mcL Neutrophils # 7.0 (1.6-8.9) K/mcL BMP 08/23/16 02:21 Sodium 137 Potassium 3.7 Chloride 103 Carbon Dioxide 20 BUN 32 H Creatinine 2.27 H Glucose 283 H Calcium 9.3 Liver Function 08/23/16 Range/Units 02:21 Total Bilirubin 0.5 (0.2-1.2) mg/dL AST 13 (5-34) Units/L ALT 11 (0-55) Units/L Alkaline Phosphatase 141 H (38-126) Units/L Albumin 3.3 L (3.5-5.0) g/dL - ABG Interpretation ABG results: PT/INR, D-dimer PT 11.7 Seconds (9.4-12.1) 08/23/16 02:21 D-Dimer 1529 ng/mLFEU (0-500) H 08/22/16 15:49 Consult Discharge Plan - Plan Referrals: Linus Ritchie MD [Primary Care Provider] -
--- NOTE | 2016-08-23 09:44 | Electrocardiograph Report ---
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
[2016-08-23] MEDS ORDERED: Dextrose Gel 15 GM PO PRN ×2 (09:52)
[2016-08-23] MEDS ORDERED: *HR* Dextrose 50 % in Water (Syg) 50 ML SYRINGE IVP PRN (09:52)
[2016-08-23] MEDS ORDERED: D5% in Water 1,000 ML IVC PRN (09:52)
[2016-08-23] MEDS: Furosemide 20 MG/2 ML VIAL IVP SCH (10:37)
[2016-08-23] MEDS: Diltiazem CD (24hr) 120 MG CAPSULE PO SCH (10:37)
[2016-08-23] MEDS: Isosorbide MONOnitrate (24 HR) 30 MG TAB.ER.24H PO SCH (10:37)
[2016-08-23] MEDS: Aspirin Enteric Coated 81 MG Tablet PO SCH (10:37)
[2016-08-23] MEDS: Cholecalciferol (D-3) 1,000 UNIT TABLET PO SCH (10:37)
[2016-08-23 10:46] LABS: Hemoglobin A1C 6.1 %
[2016-08-23] MEDS: Insulin LISPRO 300 UNITS/3 ML VIAL SQ SCH ×2 (13:04→17:14)
[2016-08-23] MEDS ORDERED: Insulin LISPRO 300 UNITS/3 ML VIAL SQ SCH (21:00)
[2016-08-24 03:33] LABS: Basophils % 0.4 %; Eosinophils # 0.2 K/mcL (0.0-0.6); Eosinophils % 1.4 %; Hematocrit 35.4 % (35.3-44.9); Hemoglobin 11.7 g/dL (11.5-15.4); Immature Granulocytes % 0.2 % (0-4); Lymphocytes # 0.8 K/mcL (0.6-4.6); Lymphocytes % 7.7 %; Mean Corpuscular HGB Conc 33.1 g/dL (31.6-35.5); Mean Corpuscular Hemoglobin 29.2 pg (28.0-33.3); Mean Corpuscular Volume 88.3 fL (83.0-100.0); Mean Platelet Volume 10.4 fL (9.4-12.4); Monocytes # 0.6 K/mcL (0.0-1.3); Monocytes % 5.7 %; Neutrophils # 8.8 K/mcL (1.6-8.9); Platelet Count 181 K/mcL (140-400); Red Blood Count 4.01 M/mcL (3.82-4.97); Red Cell Distribution Width 14.4 % (11.5-14.5); Segmented Neutrophils % 84.6 %
[2016-08-24 03:49] LABS: Potassium 3.6 mEq/L (3.5-4.5)
[2016-08-24] MEDS: Ipratropium/Albuterol Neb 3 ML IH SCH ×4 (03:56→16:38)
[2016-08-24] MEDS: *HR* Enoxaparin 30 MG/0.3 ML SYRINGE SQ SCH (05:24)
[2016-08-24] MEDS: Diltiazem CD (24hr) 120 MG CAPSULE PO SCH (08:05)
[2016-08-24] MEDS: Aspirin Enteric Coated 81 MG Tablet PO SCH (08:05)
[2016-08-24] MEDS: Isosorbide MONOnitrate (24 HR) 30 MG TAB.ER.24H PO SCH (08:05)
[2016-08-24] MEDS: Cholecalciferol (D-3) 1,000 UNIT TABLET PO SCH (08:06)
[2016-08-24] MEDS ORDERED: Furosemide 20 MG TABLET PO SCH (09:00)
[2016-08-24] MEDS: Insulin LISPRO 300 UNITS/3 ML VIAL SQ SCH ×3 (09:23→16:51)
--- NOTE | 2016-08-24 15:55 | Venous Imaging Report ---
LE Venous Duplex Patient Name:Mara Piña Order Number:[id number] Procedure Date:08/23/2016 Date:9Age:76 yrs Gender:Female Location:[facility] Room #: 3B14 Transportation Superintendent:Ginette Barrios Referring MD:Shen Kaur CNP prison keeper:Linus Ritchie MD Reading MD:Rafiq Appiah MD Primary Indications:Assess for DVT Secondary Indications: Risk Factors Yes/No Anticoagulants Yes Hypertension Yes Hypercholesterolemia Yes Diabetes Yes Impressions: Normal bilateral lower extremity deep and superficial venous exam. Recommendations: After imaging the patient returned to their room. Findings Venous Duplex Results: Right: Venous imaging of the lower extremity reveals full patency and normal vessel compressibility of the right distal iliac, right common femoral, right superficial femoral, right popliteal, right posterior tibial, right peroneal, right great saphenous and right lesser saphenous. Doppler signals in the evaluated veins were normal. Left: Venous imaging of the lower extremity reveals full patency and normal vessel compressibility of the left distal iliac, left common femoral, left superficial femoral, left popliteal, left posterior tibial, left peroneal, left great saphenous and left lesser saphenous. Doppler signals in the evaluated veins were normal. Prior Study: No prior study available for comparison. Lower Extremity Venous Duplex Side Vein Compress Spontaneous Flow Augment Diameter (cm) Depth (cm) Right Distal Iliac Normal Yes Phasic Yes Right Common Femoral Normal Yes Phasic Yes Right Superficial Femoral Normal Yes Phasic Yes Right Popliteal Normal Yes Phasic Yes Right Posterior Tibial Normal Yes Phasic Yes Right Peroneal Normal Yes Phasic Yes Right Great Saphenous Normal Yes Phasic Yes Right Lesser Saphenous Normal Yes Phasic Yes Left Distal Iliac Normal Yes Phasic Yes Left Common Femoral Normal Yes Phasic Yes Left Superficial Femoral Normal Yes Phasic Yes Left Popliteal Normal Yes Phasic Yes Left Posterior Tibial Normal Yes Phasic Yes Left Peroneal Normal Yes Phasic Yes Left Great Saphenous Normal Yes Phasic Yes Left Lesser Saphenous Normal Yes Phasic Yes Updated by Rafiq Appiah MD on 08/24/2016 3:49:16 PM electronically signed on 08/24/2016 3:49:33 PM with status of Final
--- NOTE | 2016-08-24 17:57 | Discharge Summary ---
Date of Encounter: 08/24/16 Time of Encounter: 08:40 - Discharge Diagnosis (1) Acute exacerbation of CHF (congestive heart failure) Priority: Primary Status: Acute Comments: Patient admitted for acute exacerbation COPD. BNP was 680. Lungs are clear she has minimal peripheral edema. Echocardiogram from Jun, 2015 shows moderately dilated left ventricle, moderately decreased LV systolic function, LVEF 35-40%. Regional wall motion abnormalities, normal right ventricular structure and function, severely dilated left atrium. Thickened calcified mitral valve leaflets, severe eccentric mitral regurgitation and mild pulmonary hypertension. Patient has chronically elevated BNP. She will continue her home Lasix dose and fluid restriction 1.5 L. Encourage patient to weigh herself daily. Qualifiers: Congestive heart failure type: systolic Qualified Code(s): I50.23 - Acute on chronic systolic (congestive) heart failure (2) Hypertension Priority: Secondary Status: Chronic Comments: Chronic. Continue home medications. Qualifiers: Hypertension type: essential hypertension Qualified Code(s): I10 - Essential (primary) hypertension (3) Lung cancer Priority: Secondary Status: Chronic Comments: Current right lung mass. She gets chemotherapy every 2 weeks. Last treatment was 3 days ago. Follows at [facility]. Qualifiers: Laterality: right Lung location: unspecified part of lung Qualified Code( s): C34.91 - Malignant neoplasm of unspecified part of right bronchus or lung (4) CAD (coronary artery disease) Priority: Secondary Status: Chronic Comments: Chronic. Continue aspirin, Plavix, Cardizem, and in Imdur. Qualifiers: Coronary Disease-Associated Artery/Lesion type: [place] artery [place] vs. transplanted heart: [place] heart Associated angina: without angina Qualified Code(s): I25.10 - Atherosclerotic heart disease of [place] coronary artery without angina pectoris (5) Hyperlipidemia Priority: Secondary Status: Chronic Comments: Lipid panel within normal limits. Patient is not on a statin. Qualifiers: Hyperlipidemia type: pure hypercholesterolemia Qualified Code(s): E78.00 - Pure hypercholesterolemia, unspecified; E78.0 - Pure hypercholesterolemia (6) Diabetes Priority: Secondary Status: Chronic Comments: Last A1c in January was 5.5. A1c now 6.1. Continue Accu-Cheks and home medications on discharge. Continue diabetic diet on discharge. Qualifiers: Diabetes mellitus type: type 2 Diabetes mellitus complication status: with unspecified complications Diabetes mellitus termite treater insulin use: unspecified termite treater insulin use status Qualified Code(s): E11.8 - Type 2 diabetes mellitus with unspecified complications (7) Hypothyroidism Priority: Secondary Status: Chronic Comments: Continue home medication. Qualifiers: Hypothyroidism type: unspecified Qualified Code(s): E03.9 - Hypothyroidism , unspecified (8) COPD (chronic obstructive pulmonary disease) Priority: Secondary Status: Chronic Comments: Patient reports extreme shortness of breath with exertion. This is normal for her. Initially was suspicion for possible PE on arrival to the emergency department. D-dimer was elevated. Bilateral lower extremity Dopplers were negative. Lungs are clear and diminished. There is no wheezing, rales, rhonchi , or stridor distress, or stridor. Continue home medications. Wear oxygen as needed. Qualifiers: COPD type: chronic bronchitis Chronic bronchitis type: mixed simple and mucopurulent Qualified Code(s): J41.8 - Mixed simple and mucopurulent chronic bronchitis (9) CKD (chronic kidney disease) stage 4, GFR 15-29 ml/min Priority: Secondary Status: Acute Comments: Chronic. Creatinine is at baseline. - Discharge Medications Home Medications: Clopidogrel [Plavix] 75 mg PO DAILY 05/15/15 [History] Aspirin Enteric Coated [Aspirin EC] 81 mg PO DAILY 07/17/15 [History] Ergocalciferol (VITAMIN D2) [Vitamin D2] 2,000 unit PO DAILY 07/17/15 [History] Isosorbide MONOnitrate (24 HR) [Imdur] 30 mg PO DAILY 06/08/16 [History] Levothyroxine [Synthroid] 75 mcg PO DAILY 06/08/16 [History] Diltiazem CD (24hr) [Cardizem CD] 120 mg PO DAILY 08/22/16 [History] Oxygen 2 l .ROUTE AD 08/22/16 [History] Allergies/Adverse Reactions: Allergies No Known Allergies Allergy (Verified 08/22/16 08:29) Procedures/tests Complete & Pending: Procedures Performed prior 72 hours Category Date Time Status EV echocardiogram Routine Y 08/22/16 18:01 Completed Venous Ultrasound [EV venous imaging LE BI] Stat Y 08/22/16 15:36 Completed Date of admission: 08/22/16 11:52 Primary care physician: Linus Ritchie MD Discharging clinician: Carmen Monaco Anticipated date of discharge: 08/24/16 - Patient Status Disposition: Home, Self-Care Condition: Good Functional capacity at discharge: uses cane/walker Overall status at discharge: patient is progressing back to baseline - Discharge Instructions Follow Up With: Linus Ritchie MD [Primary Care Provider] - 08/31/16 10:45 am (With Dr. Adams ) Additional Instructions: Follow-up with your primary care physician in 7-10 days for recheck. Return to the emergency department as needed for any other concerning symptoms or worsening symptoms. Resume your home medications. Daily weights and 1.5 L fluid restriction at home. Low-salt diet. Try to stay inside during the heat of the day in the air-conditioning and each use your oxygen. - Diet and Activity Activity: increase activity as tolerated, wear oxygen at all times Diet: low fat, low cholesterol, low salt diet Hospital course: Ms. Piña is a 76 year old female - Time Spent with Patient Total time spent providing and/or coordinating discharge services: - Constitutional Vitals: Temp Pulse Resp BP Pulse Ox 98 F 108 16 107/72 92 08/24/16 15:17 08/24/16 15:17 08/24/16 16:38 08/24/16 15:17 08/24/16 16:38 General appearance: Present: cooperative, mild distress (Mild respiratory distress with speaking), A&O X 3, obese, answers questions appropriately - Head Head exam: Present: normal inspection - Eye Eye exam: Present: normal appearance, conjuntiva pink - ENT ENT exam: Present: mucous membranes moist, normal exam - Neck Neck exam general surgery: Present: normal inspection. Absent: lymphadenopathy , tenderness - Respiratory Respiratory exam: Present: decreased breath sounds, CTAB. Absent: chest wall tenderness, rales, rhonchi, stridor, wheezes - Cardiovascular Cardiovascular exam: Present: RRR, +S1, +S2. Absent: diastolic murmur, systolic murmur - GI/Abdominal GI/Abdominal exam: Present: soft. Absent: distended, hepatomegaly, tenderness - Extremities Exam Extremities exam: Present: normal inspection, warm, radial pulses palpable and symetrical. Absent: pedal edema, tenderness - Neurological Exam Neurological exam: Present: alert, normal gait, oriented X3, no focal deficits. Absent: pronater drift, facial droop, speech deficit
[2016-08-24 18:45] VITALS: BP 121/70
== END 2016-08-24 19:45 | disposition home or self-care (01) ==
LOC: EMEROO 08:20 → 3BNU 08:20
PROVIDERS: ADMIT Internal Medicine; ATTEND Registered Nurse

== ENCOUNTER 2017-01-24 07:43 | Inpatient (IN) ==
[2017-01-24] MEDS ORDERED: methylPREDNISolone 125 MG/2 ML VIAL IVP ONE (07:45)
[2017-01-24] MEDS ORDERED: Ipratropium/Albuterol Neb 3 ML IH ONE (07:45)
--- NOTE | 2017-01-24 07:49 | Emergency Department Note ---
Disposition Clinical Impression: Hypoxia COPD (chronic obstructive pulmonary disease) Qualifiers: COPD type: COPD with acute exacerbation Qualified Code(s): J44.1 - Chronic obstructive pulmonary disease with (acute) exacerbation Lung cancer Qualifiers: Laterality: unspecified laterality Lung location: unspecified part of lung Qualified Code(s): C34.90 - Malignant neoplasm of unspecified part of unspecified bronchus or lung Atrial fibrillation Qualifiers: Atrial fibrillation type: unspecified Qualified Code(s): I48.91 - Unspecified atrial fibrillation Disposition: Admitted As Inpatient Condition: Fair Time of Disposition: 09:05 SOB HPI - General Chief Complaint: ED Shortness of Breath/Dyspnea Stated Complaint: SOB Time Seen by Provider: 01/24/17 07:45 Source: patient, EMS Mode of arrival: EMS Limitations: no limitations Nursing Notes Reviewed: Yes Vital Signs Reviewed: Yes - History of Present Illness 76-year-old female with a history of lung cancer COPD comes in with increasing shortness of breath for the last 3 days. Patient is currently receiving chemotherapy and last received chemotherapy couple days ago. Patient has had a cough. She is oxygen dependent was found to have a pulse ox in the mid 80s on squad arrival. Pt Subjective Complaint: shortness of breath, cough Onset (ago): day(s) (3) Context: other ([place] cancer COPD) Severity: moderate, severe Consistency/Duration: constant Improves with: oxygen Worsens with: exertion, coughing Known history of: COPD Associated symptoms: Reports: cough, wheezing. Denies: fever Treatment prior to arrival: oxygen Cough Description: Involuntary Cough Frequency: Intermittent - Related Data Home Medications Medication Instructions Recorded Confirmed Clopidogrel [Plavix] 75 mg PO DAILY 05/15/15 01/24/17 Aspirin Enteric Coated [Aspirin EC] 81 mg PO DAILY 07/17/15 01/24/17 Ergocalciferol (VITAMIN D2) 2,000 unit PO DAILY 07/17/15 01/24/17 [Vitamin D2] Isosorbide MONOnitrate (24 HR) 30 mg PO DAILY 06/08/16 01/24/17 [Imdur] Diltiazem CD (24hr) [Cardizem CD] 120 mg PO DAILY 08/22/16 01/24/17 Oxygen 2 l .ROUTE AD 08/22/16 01/24/17 Albuterol Sulfate [Albuterol 1 - 2 puff IH Q6HR 01/24/17 01/24/17 Inhaler] Tiotropium [Spiriva] 18 mcg IH DAILY 01/24/17 01/24/17 Umeclidinium [place] [Incruse 62.5 mcg IH DAILY 01/24/17 01/24/17 Ellipta] Previous Rx's Medication Instructions Recorded Levothyroxine [Synthroid] 75 mcg PO DAILY #30 tablet 01/20/17 Allergies Allergy/AdvReac Type Severity Reaction Status Date / Time No Known Allergies Allergy Verified 01/20/17 15:47 All systems ED: reviewed and negative except as stated. Constitutional: Denies: fever, chills, weakness, weight change Eyes: Denies: eye pain, eye discharge, vision change ENT ED: Denies: ear pain, throat pain, dental pain, hearing loss, epistaxis, congestion, dysphagia Cardiovascular: Denies: chest pain, palpitations, dyspnea on exertion, edema, syncope Respiratory: Reports: cough, dyspnea, wheezes. Denies: hemoptysis, stridor Gastrointestinal: Denies: abdominal pain, nausea, vomiting, diarrhea, constipation, hematemesis, melena, hematochezia Genitourinary: Denies: dysuria, frequency, hematuria, discharge Musculoskeletal: Denies: back pain, neck pain, arthralgia, myalgia Integumentary: Denies: rash, abrasion, lesions Neurological: Denies: headache, weakness, numbness, paresthesias, confusion, abnormal gait, vertigo Psychiatric: Denies: anxiety, depression, suicidal thoughts, homicidal thoughts , auditory hallucinations, visual hallucinations Endocrine: Denies: fatigue Hematological/Lymphatic: Denies: easy bleeding, easy bruising Allergic/Immunologic: Denies: facial swelling, urticaria Past Medical History - Past Medical History Medical history: Reports: cancer, CHF, COPD, coronary artery disease, diabetes, hypertension, myocardial infarction, renal disease Surgical history: Reports: angioplasty/stent, other (Tubal ligation) Psychiatric history: Reports: no psych history MOTHER HELPER history: Reports: non-contributory - Social History Smoking Status: Former smoker Smokeless Tobacco Status: No Alcohol use: Reports: none Drug use: Reports: none Physical Exam - General Limitations: no limitations General appearance: alert, in no apparent distress - Head Head exam: atraumatic, normocephalic, normal inspection - Eye Eye exam: Present: normal appearance, PERRL, EOMI - ENT ENT exam: normal exam, normal oropharynx, mucous membranes moist - Neck Neck exam: Present: normal inspection, full ROM, trachea midline - Chest Chest inspection: Present: normal inspection, symmetric chest wall rise - Respiratory Respiratory exam: Present: respiratory distress, wheezes - Cardiovascular Cardiovascular exam: Present: regular rate, normal rhythm, normal heart sounds - Abdominal Exam Abdominal exam: Present: soft, Non-Tender. Absent: tenderness, distention, guarding, rebound, rigidity - Extremities Exam Extremities exam: Present: normal inspection, full ROM. Absent: tenderness, pedal edema - Expanded Lower Extremity Exam Neurovascular/Tendon exam: Absent: motor deficit, sensory deficit, tendon deficit Gait: not tested/not observed - Back Exam Back exam: Present: normal inspection, full ROM. Absent: tenderness - Neurological Exam Neurological exam: Present: alert, oriented X3 - Psychiatric Psychiatric exam: Present: normal affect, normal mood - Skin Skin exam: Present: warm, dry, intact, normal color Course - Reevaluation(s) Reevaluation #1: 76-year-old with history of small cell carcinoma lung comes in with increasing shortness of breath and hypoxia. Workup included a chest x-ray that showed atelectasis versus pneumonia. We will cover her with antibiotics. Her BNP was elevated at over 2000 we'll give her Lasix IV. Patient's pulse ox came up to 96 % her blood pressure was stable the patient stated that she feeling much improved at this point in time. Time: 09:06 - Consultations Consultation #1: [facility] Dr. Munoz, admit. Time: 09:05 Vital Signs Temperature 97.6 F 01/24/17 07:44 Pulse Rate 102 01/24/17 07:44 Respiratory Rate 24 01/24/17 07:44 Blood Pressure 144/111 01/24/17 07:44 O2 Sat by Pulse Oximetry 98 01/24/17 07:44 Temperature 97.6 F 01/24/17 10:16 Pulse Rate 109 01/24/17 10:16 Respiratory Rate 30 01/24/17 10:50 Blood Pressure 110/85 01/24/17 10:16 O2 Sat by Pulse Oximetry 91 01/24/17 10:50 Oxygen Delivery Oxygen Delivery Nasal Cannula Shortness of Breath/Dyspnea - Lab Data Lab results reviewed: Yes I reviewed the patient's lab results. Result diagrams: 01/24/17 08:23 01/24/17 08:23 Lab Results 01/24/17 01/24/17 01/24/17 Range/Units 08:23 08:23 08:23 WBC 7.8 (4.3-11.1) K/mcL RBC 4.09 (3.82-4.97) M/mcL Hgb 10.8 L (11.5-15.4) g/dL Hct 34.1 L (35.3-44.9) % MCV 83.4 (83.0-100.0) fL MCH 26.4 L (28.0-33.3) pg MCHC 31.7 (31.6-35.5) g/dL RDW 15.8 H (11.5-14.5) % Plt Count 197 (140-400) K/mcL MPV 10.3 (9.4-12.4) fL Immature Gran % 0.3 (0-4) % Seg Neutrophils % 82.7 % Lymphocytes % 7.7 % Monocytes % 6.0 % Eosinophils % 2.9 % Basophils % 0.4 % Neutrophils # 6.5 (1.6-8.9) K/mcL Lymphocytes # 0.6 (0.6-4.6) K/mcL Monocytes # 0.5 (0.0-1.3) K/mcL Eosinophils # 0.2 (0.0-0.6) K/mcL Basophils # 0.0 (0.0-0.2) K/mcL ABG pH (7.32-7.45) pH Units ABG pCO2 (35-45) mmHg ABG pO2 (85-104) mmHg ABG HCO3 (21-27) mEq/L ABG Total CO2 (20-26) mEq/L ABG O2 Saturation (95-98) % ABG Base Excess (-2 to 3) mEq/L Sodium 139 (136-145) mEq/L Potassium 3.0 L (3.5-4.5) mEq/L Chloride 106 (98-109) mEq/L Carbon Dioxide 20 (19-29) mEq/L BUN 23 H (7-20) mg/dL Creatinine 1.76 H (0.57-1.11) mg/dL Est GFR ( Amer) 34 L (> 60) Est GFR (Non-Af Amer) 28 L (> 60) BUN/Creatinine Ratio 13 (6-26) Glucose 173 H (70-99) mg/dL Calculated Osmolality 296 (280-300) Lactic Acid 0.9 (0.5-2.2) mmol/L Calcium 8.9 (8.6-10.8) mg/dL Troponin I (0-0.03) ng/mL B-Natriuretic Peptide (0-100) pg/mL 01/24/17 01/24/17 01/24/17 Range/Units 08:23 08:23 08:25 WBC (4.3-11.1) K/mcL RBC (3.82-4.97) M/mcL Hgb (11.5-15.4) g/dL Hct (35.3-44.9) % MCV (83.0-100.0) fL MCH (28.0-33.3) pg MCHC (31.6-35.5) g/dL RDW (11.5-14.5) % Plt Count (140-400) K/mcL MPV (9.4-12.4) fL Immature Gran % (0-4) % Seg Neutrophils % % Lymphocytes % % Monocytes % % Eosinophils % % Basophils % % Neutrophils # (1.6-8.9) K/mcL Lymphocytes # (0.6-4.6) K/mcL Monocytes # (0.0-1.3) K/mcL Eosinophils # (0.0-0.6) K/mcL Basophils # (0.0-0.2) K/mcL ABG pH 7.37 (7.32-7.45) pH Units ABG pCO2 40 (35-45) mmHg ABG pO2 146 H (85-104) mmHg ABG HCO3 23 (21-27) mEq/L ABG Total CO2 24 (20-26) mEq/L ABG O2 Saturation 99 H (95-98) % ABG Base Excess -2 (-2 to 3) mEq/L Sodium (136-145) mEq/L Potassium (3.5-4.5) mEq/L Chloride (98-109) mEq/L Carbon Dioxide (19-29) mEq/L BUN (7-20) mg/dL Creatinine (0.57-1.11) mg/dL Est GFR ( Amer) (> 60) Est GFR (Non-Af Amer) (> 60) BUN/Creatinine Ratio (6-26) Glucose (70-99) mg/dL Calculated Osmolality (280-300) Lactic Acid (0.5-2.2) mmol/L Calcium (8.6-10.8) mg/dL Troponin I 0.02 (0-0.03) ng/mL B-Natriuretic Peptide 2038 H (0-100) pg/mL - Radiology Data Radiology results reviewed: Yes I reviewed the patient's radiology results. Chest X-Ray 01/24/17 07:46 IMPRESSION: COPD with right basilar atelectasis versus pneumonia. Stable left-sided postsurgical change. D/ / Prakash Coffman MD / Prakash Coffman MD Interpreting Provider: Prakash Coffman MD - EKG Data EKG attestation: Yes I reviewed and interpreted this EKG. Rate: Reports: tachycardia (101) Rhythm: Reports: A.Fib Interpretation: Reports: no acute changes
[2017-01-24 08:29] LABS: ABG Base Excess -2 mEq/L (-2 to 3); ABG HCO3 23 mEq/L (21-27); ABG Oxygen Saturation 99 % (95-98); ABG PCO2 40 mmHg (35-45); ABG PH 7.37 pH Units (7.32-7.45); ABG PO2 146 mmHg (85-104); ABG TCO2 24 mEq/L (20-26)
[2017-01-24 08:35] LABS: Basophils % 0.4 %; Eosinophils # 0.2 K/mcL (0.0-0.6); Eosinophils % 2.9 %; Hematocrit 34.1 % (35.3-44.9); Hemoglobin 10.8 g/dL (11.5-15.4); Immature Granulocytes % 0.3 % (0-4); Lymphocytes # 0.6 K/mcL (0.6-4.6); Lymphocytes % 7.7 %; Mean Corpuscular HGB Conc 31.7 g/dL (31.6-35.5); Mean Corpuscular Hemoglobin 26.4 pg (28.0-33.3); Mean Corpuscular Volume 83.4 fL (83.0-100.0); Mean Platelet Volume 10.3 fL (9.4-12.4); Monocytes # 0.5 K/mcL (0.0-1.3); Neutrophils # 6.5 K/mcL (1.6-8.9); Platelet Count 197 K/mcL (140-400); Red Blood Count 4.09 M/mcL (3.82-4.97); Red Cell Distribution Width 15.8 % (11.5-14.5); Segmented Neutrophils % 82.7 %
[2017-01-24] MEDS ORDERED: Furosemide 40 MG/4 ML VIAL IVP ONE ×2 (09:00→10:42)
[2017-01-24] MEDS ORDERED: cefTRIAXone 1,000 MG in Water for inj. (sterile) 10 ML IVP ONE (09:01)
[2017-01-24] MEDS ORDERED: Azithromycin 500 MG in D5% in Water 250 ML IVPB ONE (09:01)
[2017-01-24 09:14] LABS: Calcium 8.9 mg/dL (8.6-10.8)
[2017-01-24] MEDS ORDERED: *HR* Morphine 2 MG/ML SYRINGE IVP ONE (10:42)
[2017-01-24] MEDS ORDERED: Furosemide 40 MG/4 ML VIAL ONE (10:43)
[2017-01-24] MEDS: *HR* Morphine 2 MG/ML SYRINGE ONE ×2 (10:44→11:35)
[2017-01-24] MEDS ORDERED: Ipratropium/Albuterol Neb 3 ML ONE (11:05)
--- NOTE | 2017-01-24 11:06 | Pulmonology History & Physical ---
<Heidy Lam M - Last Filed: 01/24/17 12:18> Date of Encounter: 01/24/17 History of Present Illness HPI: Ms. Piña is a 76 year old female Medications and Allergies Clopidogrel [Plavix] 75 mg PO DAILY 05/15/15 [History] Aspirin Enteric Coated [Aspirin EC] 81 mg PO DAILY 07/17/15 [History] Ergocalciferol (VITAMIN D2) [Vitamin D2] 2,000 unit PO DAILY 07/17/15 [History] Isosorbide MONOnitrate (24 HR) [Imdur] 30 mg PO DAILY 06/08/16 [History] Diltiazem CD (24hr) [Cardizem CD] 120 mg PO DAILY 08/22/16 [History] Oxygen 2 l .ROUTE AD 08/22/16 [History] Levothyroxine [Synthroid] 75 mcg PO DAILY #30 tablet 01/20/17 [Rx] Albuterol Sulfate [Albuterol Inhaler] 1 - 2 puff IH Q6HR 01/24/17 [History] Tiotropium [Spiriva] 18 mcg IH DAILY 01/24/17 [History] Umeclidinium [place] [Incruse Ellipta] 62.5 mcg IH DAILY 01/24/17 [History] 3 Allergy/AdvReac Type Severity Reaction Status Date / Time No Known Allergies Allergy Verified 01/20/17 15:47 All Systems: A 10-system review of systems was performed and is negative for pertinent findings except as documented above in the HPI. Physical Examination Vital Signs: Vital Signs, Last 4 Hours Resp Pulse Ox 01/24/17 11:50 24 92 01/24/17 11:14 33 92 Results - Laboratory Findings CBC and BMP: 01/24/17 08:23 01/24/17 08:23 ABG ABG pH 7.37 pH Units (7.32-7.45) 01/24/17 08:25 ABG pCO2 40 mmHg (35-45) 01/24/17 08:25 ABG pO2 146 mmHg (85-104) H 01/24/17 08:25 ABG O2 Saturation 99 % (95-98) H 01/24/17 08:25 Abnormal lab findings: Abnormal lab results Hgb 10.8 g/dL (11.5-15.4) L 01/24/17 08:23 Hct 34.1 % (35.3-44.9) L 01/24/17 08:23 MCH 26.4 pg (28.0-33.3) L 01/24/17 08:23 RDW 15.8 % (11.5-14.5) H 01/24/17 08:23 ABG pO2 146 mmHg (85-104) H 01/24/17 08:25 ABG O2 Saturation 99 % (95-98) H 01/24/17 08:25 Potassium 3.0 mEq/L (3.5-4.5) L 01/24/17 08:23 BUN 23 mg/dL (7-20) H 01/24/17 08:23 Creatinine 1.76 mg/dL (0.57-1.11) H 01/24/17 08:23 Est GFR ( Amer) 34 (> 60) L 01/24/17 08:23 Est GFR (Non-Af Amer) 28 (> 60) L 01/24/17 08:23 Glucose 173 mg/dL (70-99) H 01/24/17 08:23 POC Glucose 263 (58-89) H 01/24/17 11:02 B-Natriuretic Peptide 2038 pg/mL (0-100) H 01/24/17 08:23 - Attending Attestation I examined this patient and my medical decision-making was reviewed with the Resident Physician. I agree with the documented findings, disposition and treatment plan as described except to the extent set forth below. Patient seen and examined. Labs, radiology, chart personally reviewed. 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 Patient will be treated with bronchodilators and steroids. Cardiovascular: Initially patient was hypertensive and subsequently after induction her blood pressure dropped and was treated symptomatically with IV fluid. GI: Nutrition per dietary and GI prophylaxis per routine Heme: DVT prophylaxis per routine. Patient with history of lung cancer and oncology may need to be consulted. ID: Continue antibiotics and plan to de-escalation Renal; urine out put and renal funtion reviewed Endorcine: blood glucose is monitored Lines: all lines checked and no evidence of infections Skin: skin care to prevent pressure ulcers per nursing routine care I have explained to the overall prognosis is poor due to underlying lung disease. I spent 45 min of Critical Care time with this patient. It involved decision making of high complexity to assess, manipulate, and support vital organ system failure and/or to prevent further life threatening deterioration of the patient' s condition. The time involved in the performance of separately reportable procedures was not counted toward critical care time. <Joan Quiroz - Last Filed: 01/24/17 16:27> Date of Encounter: 01/24/17 Time of Encounter: 11:00 Assessment and Plan (1) Acute and chronic respiratory failure with hypoxia Current visit: No Status: Acute - With reported desaturation to the mid 80s upon EMS arrival. - Likely multifactorial including AE COPD, CHF, possible pneumonia in the setting of lung cancer. - Currently intubated and continue mechanical ventilation support. - Steroid, Symbicort, bronchodilators for AE COPD. - Consider more diuresis for CHF. - IV vancomycin and Zosyn for possible pneumonia. - Continue close monitoring in ICU. (2) Acute exacerbation of chronic obstructive pulmonary disease (COPD) Current visit: No Status: Acute - Continue Solu-medrol and start Symbicort and bronchodilators. (3) CHF (congestive heart failure) Current visit: No Status: Chronic - Echo on 08/23/16 showed LVEF 40% with mild diastolic dysfunction. - BNP 2038 in ED. - Patient received 80 mg IV Lasix so far. - Hold Lasix for now given borderline hypotension but will likely resume once blood pressure becomes more stable. Qualifiers: Congestive heart failure type: systolic Congestive heart failure chronicity : unspecified congestive heart failure chronicity Qualified Code(s): I50.20 - Unspecified systolic (congestive) heart failure (4) Pneumonia Current visit: Yes Status: Suspected - CXR found patchy airspace opacification within the right lower lobe, suspicious for pneumonia. - Blood culture pending. - Start IV vancomycin and Zosyn for broad spectrum coverage. Further de- escalation based on clinical course and culture result. Qualifiers: Pneumonia type: due to unspecified organism Laterality: right Lung location: lower lobe of lung Qualified Code(s): J18.1 - Lobar pneumonia, unspecified organism (5) Squamous cell lung cancer Current visit: No Status: Chronic - On immunotherapy per patient's oncologist Dr. Vela's note. - May consider oncology consult. Qualifiers: Laterality: left Qualified Code(s): C34.92 - Malignant neoplasm of unspecified part of left bronchus or lung (6) Type 2 diabetes mellitus Current visit: No Status: Chronic - Insulin sliding scale with frequent glucose monitoring. Qualifiers: Diabetes mellitus complication status: without complication Diabetes mellitus snf insulin use: with snf use Qualified Code(s): E11.9 - Type 2 diabetes mellitus without complications (7) DVT prophylaxis Current visit: Yes Status: Acute - Start SQ heparin. GI prophylaxis: Start IV PPI. History of Present Illness Chief complaint: Shortness of breath HPI: Ms. Piña is a 76 year old female with PMH of squamous cell lung carcinoma on immunotherapy, COPD, CAD s/p PCI LAD DOMINIK, systolic CHF (EF 40% per echo 08/23/16) , A-fib on PO Cardizem and CKD. Patient presented with worsening shortness of breath for past 3 days and was noted to have O2 sat in the mid 80s upon EMS arrival. Patient was noted to have elevated BNP at 2038. CXR suggested COPD with right basilar atelectasis vs. pneumonia. Patient received IV Lasix (40 mg) , azithromycin, ceftriaxone and Solu-Medrol in ED. Patient was noted to have significant respiratory distress upon arrival to the medical floor and rapid response was called. Patient was started on BiPAP and additional 40 mg of IV Lasix was given but patient's respiratory distress persisted. Patient was therefore transferred to ICU where patient failed non-invasive ventilatin and sediation. Patient was eventually intubated without significant complication and started on mechanical ventilation support. Given patient's respiratory status requiring BiPAP and eventually intubation, much of history was obtained from review of medical record. Past Med Surg Social Fam HX - Past Medical History Medical history: cancer, CHF, COPD, coronary artery disease, diabetes, hypertension, myocardial infarction, renal disease Psychiatric history: no psych history - Past Surgical History Surgical History: angioplasty/stent, other (Tubal ligation) - Social History Smoking Status: Former smoker Smokeless Tobacco Status: No Alcohol use: none Drug use: none - Family History Brother Family Member Ethnicity: Non- Living Status: Hx Family Cardiac Disorders: Yes ([place]) Mother Family Member Ethnicity: Non- Living Status: Father Family Member Ethnicity: Non- Living Status: Hx Family Cardiac Disorders: Yes (Aneurysm) Sister Family Member Ethnicity: Non- Hx Family Cancer: Yes (breast cancer) ROS unobtainable: due to endotracheal tube Physical Examination Vital Signs: Vital Signs, Last 4 Hours Temp Pulse Resp BP Pulse Ox 01/24/17 10:50 30 91 01/24/17 10:16 97.6 F 109 14 110/85 95 01/24/17 10:08 22 134/106 01/24/17 09:32 97 20 125/102 96 General appearance: other (Sedated and intubated.) Eyes: nonicteric ENT: other (Intubated) Neck: supple Effort: normal Inspection: normal Auscultation: bilateral: clear Cardiovascular: regular rate and rhythm Gastrointestinal: normoactive bowel sounds, soft Integumentary: normal Extremities: no cyanosis, no edema Results - Laboratory Findings CBC and BMP: 01/24/17 08:23 01/24/17 08:23 ABG ABG pH 7.37 pH Units (7.32-7.45) 01/24/17 08:25 ABG pCO2 40 mmHg (35-45) 01/24/17 08:25 ABG pO2 146 mmHg (85-104) H 01/24/17 08:25 ABG O2 Saturation 99 % (95-98) H 01/24/17 08:25 Abnormal lab findings: Abnormal lab results Hgb 10.8 g/dL (11.5-15.4) L 01/24/17 08:23 Hct 34.1 % (35.3-44.9) L 01/24/17 08:23 MCH 26.4 pg (28.0-33.3) L 01/24/17 08:23 RDW 15.8 % (11.5-14.5) H 01/24/17 08:23 ABG pO2 146 mmHg (85-104) H 01/24/17 08:25 ABG O2 Saturation 99 % (95-98) H 01/24/17 08:25 Potassium 3.0 mEq/L (3.5-4.5) L 01/24/17 08:23 BUN 23 mg/dL (7-20) H 01/24/17 08:23 Creatinine 1.76 mg/dL (0.57-1.11) H 01/24/17 08:23 Est GFR ( Amer) 34 (> 60) L 01/24/17 08:23 Est GFR (Non-Af Amer) 28 (> 60) L 01/24/17 08:23 Glucose 173 mg/dL (70-99) H 01/24/17 08:23 B-Natriuretic Peptide 2038 pg/mL (0-100) H 01/24/17 08:23 - Diagnostic Findings Chest x-ray: report reviewed, image reviewed
[2017-01-24] MEDS ORDERED: *HR* Morphine 2 MG/ML SYRINGE ONE (11:07)
[2017-01-24] MEDS ORDERED: Ipratropium/Albuterol Neb 3 ML IH PRN (11:08)
[2017-01-24] MEDS ORDERED: *HR* Midazolam HCl 5 MG/5 ML VIAL IVP ONE (11:08)
[2017-01-24] MEDS ORDERED: Dexmedetomidine HCl 400 MCG/100 ML MLS IVC SCH (11:15)
[2017-01-24] MEDS: Ipratropium/Albuterol Neb 3 ML IH SCH ×3 (11:22→20:19)
--- NOTE | 2017-01-24 11:41 | Procedure Note ---
<Joan Quiroz - Last Filed: 01/24/17 11:55> Date of procedure: 01/24/17 Pre-op diagnosis: Acute respiratory failure failing to response appropriately with BiPAP Post-op diagnosis: same Procedure: Endotracheal intubation: Indication: Acute respiratory failure failing to response appropriately with BiPAP Consent: Verbal consent obtained from patient prio Medications given: Propofol 150 mg, Versed 5 mg, Morphine 2 mg, Cardizem 5 mg. Patient was preoxygenated for greater than 5 minutes minutes. Head of the bed at 30 degrees. Medications given as outlined above. Bag mask ventilation was easy with oral airway. Using MAC 4 blade, a size 7.5 endotracheal tube was inserted to 23cm at the teeth with assistance of Dr. Lam. Color change noted on capnometer. Bilateral breath sounds auscultated. Patient receiving appropriate volumes on the ventilator. Patient tolerated procedure well and there were no complications. Blood loss: Minimal Chest x-ray: reveals appropriate placement of endotracheal inspector tubes: Joan Quiroz DO (resident) Supervised by: Kristen Lam MD (attending) who was present for the entire procedure. Anesthesia: IV sedation Condition: stable Disposition: ICU <Heidy Lam - Last Filed: 01/24/17 12:18> Procedure: I examined this patient and my medical decision-making was reviewed with the Resident Physician. I agree with the documented findings, disposition and treatment plan as described except to the extent set forth below. I have personally supervised resident without immediate complications
[2017-01-24] MEDS ORDERED: Albumin Human 5% 25.0 GM/500 ML VIAL ONE (11:46)
[2017-01-24] MEDS ORDERED: Lacri-Lube 3.5 GM TUBE BOTH EYES PRN (11:50)
[2017-01-24] MEDS ORDERED: Piperacillin/Tazobactam 3.375 GM in 0.9 % Sodium Chloride Mini Bag 100 ML IVPB SCH (12:58)
[2017-01-24] MEDS ORDERED: Vancomycin 1,250 MG in D5% in Water 250 ML IVPB SCH (13:00)
[2017-01-24] MEDS: FentaNYL (PF) 1,000 MCG in 0.9 % Sodium Chloride 80 ML IVC SCH (13:02)
[2017-01-24] MEDS: Dexmedetomidine HCl 400 MCG/100 ML MLS IVC SCH (13:02)
[2017-01-24] MEDS: Pantoprazole 40 MG VIAL IVP SCH (14:59)
[2017-01-24] MEDS: Lacri-Lube 3.5 GM TUBE BOTH EYES SCH ×4 (14:59→23:47)
[2017-01-24] MEDS ORDERED: Dextrose Gel 15 GM PO PRN ×2 (15:09)
[2017-01-24] MEDS ORDERED: *HR* Dextrose 50 % in Water (Syg) 50 ML SYRINGE IVP PRN (15:09)
[2017-01-24] MEDS ORDERED: D5% in Water 1,000 ML IVC PRN (15:09)
[2017-01-24 15:56] LABS: ABG Base Excess -1 mEq/L (-2 to 3); ABG HCO3 25 mEq/L (21-27); ABG Oxygen Saturation 96 % (95-98); ABG PCO2 44 mmHg (35-45); ABG PH 7.36 pH Units (7.32-7.45); ABG PO2 87 mmHg (85-104); ABG TCO2 26 mEq/L (20-26); Blood Gas Modality ASSIST CONTROL; Blood Gas PEEP 8 cm H2O; Blood Gas Respiration Rate 12; Blood Gas VT 500 cc
[2017-01-24] MEDS ORDERED: Vancomycin 1,250 MG in D5% in Water 250 ML IVPB ONE (16:00)
[2017-01-24] MEDS: Insulin LISPRO 300 UNITS/3 ML VIAL SQ SCH (16:24)
[2017-01-24] MEDS ORDERED: Potassium Phosphate 44 MEQ in 0.9 % Sodium Chloride 250 ML IVPB PRN (17:42)
[2017-01-24] MEDS: *HR* Heparin 5,000 UNIT/ML VIAL SQ SCH (17:47)
[2017-01-24] MEDS: methylPREDNISolone 125 MG/2 ML VIAL IVP SCH ×2 (17:48→23:45)
[2017-01-24] MEDS: Budesonide/Formoterol 160/4.5 MDI IH SCH (20:20)
[2017-01-24] MEDS ORDERED: Furosemide 40 MG/4 ML VIAL IVP SCH (21:00)
[2017-01-24] MEDS: Chlorhexidine Rinse 15 ML MOUTHWASH MM SCH (21:44)
[2017-01-25] MEDS: Insulin LISPRO 300 UNITS/3 ML VIAL SQ SCH ×4 (00:13→17:57)
[2017-01-25] MEDS: Ipratropium/Albuterol Neb 3 ML IH SCH ×6 (00:25→20:13)
[2017-01-25] MEDS: FentaNYL (PF) 1,000 MCG in 0.9 % Sodium Chloride 80 ML IVC SCH ×2 (01:13→21:00)
[2017-01-25] MEDS: Piperacillin/Tazobactam 3.375 GM in 0.9 % Sodium Chloride Mini Bag 100 ML IVPB SCH ×3 (02:57→18:20)
[2017-01-25] MEDS: Dexmedetomidine HCl 400 MCG/100 ML MLS IVC SCH ×3 (03:03→20:44)
[2017-01-25] MEDS: Lacri-Lube 3.5 GM TUBE BOTH EYES SCH ×5 (03:04→20:07)
[2017-01-25 04:06] LABS: Basophils % 0.1 %; Hematocrit 32.8 % (35.3-44.9); Hemoglobin 10.2 g/dL (11.5-15.4); Immature Granulocytes % 0.4 % (0-4); Immature Platelets 3.6 % (1.1-6.1); Lymphocytes # 0.3 K/mcL (0.6-4.6); Lymphocytes % 2.9 %; Mean Corpuscular HGB Conc 31.1 g/dL (31.6-35.5); Mean Corpuscular Hemoglobin 26.3 pg (28.0-33.3); Mean Corpuscular Volume 84.5 fL (83.0-100.0); Mean Platelet Volume 10.9 fL (9.4-12.4); Monocytes # 0.2 K/mcL (0.0-1.3); Monocytes % 1.9 %; Neutrophils # 9.3 K/mcL (1.6-8.9); Platelet Count 144 K/mcL (140-400); Red Blood Count 3.88 M/mcL (3.82-4.97); Red Cell Distribution Width 15.8 % (11.5-14.5); Segmented Neutrophils % 94.7 %
[2017-01-25 04:24] LABS: Calcium 9.2 mg/dL (8.6-10.8); Magnesium 2.1 mg/dL (1.6-2.6); Phosphorous 3.7 mg/dL (2.3-4.7)
[2017-01-25 04:33] LABS: Potassium 4.4 mEq/L (3.5-4.5)
[2017-01-25 04:44] LABS: VBG HCO3 22 mEq/L (21-27); VBG PCO2 49 mmHg (41-51); VBG PH 7.27 pH Units (7.32-7.42); VBG PO2 123 mmHg (25-50)
[2017-01-25] MEDS: *HR* Heparin 5,000 UNIT/ML VIAL SQ SCH ×2 (05:04→17:47)
[2017-01-25] MEDS: methylPREDNISolone 125 MG/2 ML VIAL IVP SCH (05:04)
[2017-01-25 05:41] LABS: ABG Base Excess -5 mEq/L (-2 to 3); ABG HCO3 20 mEq/L (21-27); ABG Oxygen Saturation 92 % (95-98); ABG PCO2 38 mmHg (35-45); ABG PH 7.34 pH Units (7.32-7.45); ABG PO2 69 mmHg (85-104); ABG TCO2 22 mEq/L (20-26); Blood Gas Modality VC
[2017-01-25] MEDS: Budesonide/Formoterol 160/4.5 MDI IH SCH ×2 (07:25→20:13)
[2017-01-25] MEDS ORDERED: Furosemide 40 MG/4 ML VIAL IVP ONE (07:32)
[2017-01-25] MEDS: Pantoprazole 40 MG VIAL IVP SCH (08:32)
[2017-01-25] MEDS: Diltiazem CD (24hr) 120 MG CAPSULE PO SCH (08:32)
[2017-01-25] MEDS: Chlorhexidine Rinse 15 ML MOUTHWASH MM SCH ×2 (08:32→20:28)
[2017-01-25] MEDS: Aspirin 81 MG TAB.CHEW PO SCH (08:50)
[2017-01-25] MEDS ORDERED: Aspirin Enteric Coated 81 MG Tablet PO SCH (09:00)
[2017-01-25] MEDS ORDERED: Aminoglycoside Consult 1 EACH MC ONE (09:51)
--- NOTE | 2017-01-25 09:56 | Pulmonology Progress Note ---
<Kerry Fraga Carie - Last Filed: 01/25/17 16:09> Date of Encounter: 01/25/17 Time of Encounter: 09:56 Assessment and Plan (1) Acute and chronic respiratory failure with hypoxia Current Visit: No Status: Acute Likely multifactorial including acute exacerbation of COPD, CHF, possible pneumonia in the setting of lung cancer. -Continue mechanical ventilation. Decrease tidal volume to 380, increased respiratory rate to 18. -Follow-up sputum culture -Follow-up limited echo to check volume status. -We held Lasix yesterday, however, we suspected cardiorenal syndrome today, therefore, we we gave IV Lasix today. However, patient's follow-up creatinine continued to trend upwards and patient had a total urinary output of 40 mL. We therefore DC'd the Lasix and gave a liter bolus of normal saline. We will continue to monitor. -IV vancomycin and Zosyn for possible pneumonia. -Steroids, Symbicort, and bronchodilators for COPD exacerbation. -Continue close monitoring in ICU. (2) Acute on chronic renal failure Current Visit: Yes Status: Acute Patient's creatinine trending up to 2.47 this morning and 3.13 this afternoon. -Discontinue Lasix. -Hold dose of vancomycin today. -IV bolus of normal saline Qualifiers: Acute renal failure type: unspecified Chronic kidney disease stage: stage 4 (severe) Qualified Code(s): N17.9 - Acute kidney failure, unspecified; N18.4 - Chronic kidney disease, stage 4 (severe); N18.4 - Chronic kidney disease , stage 4 (severe); N18.4 - Chronic kidney disease, stage 4 (severe); N18.4 - Chronic kidney disease, stage 4 (severe) (3) Pneumonia Current Visit: Yes Status: Suspected Chest x-ray on 01/24/2017 shows unchanged large left pleural effusion and bilateral consolidations. -Sputum culture preliminarily negative. -Blood culture preliminarily negative. -IV vancomycin, Zithromax, and Zosyn day 2. Qualifiers: Pneumonia type: due to unspecified organism Laterality: right Lung location: lower lobe of lung Qualified Code(s): J18.1 - Lobar pneumonia, unspecified organism (4) Acute exacerbation of chronic obstructive pulmonary disease (COPD) Current Visit: No Status: Acute -Continue Solu-Medrol, Symbicort, and bronchodilators. (5) Congestive heart failure Current Visit: No Status: Acute Echocardiogram done today on 01/25/2017 shows minimal changes from echo performed on 08/23/2016 which shows LVEF of 40% with systolic dysfunction. -Lasix held due to acute kidney injury. Creatinine 3.13. Qualifiers: Congestive heart failure type: systolic Qualified Code(s): I50.20 - Unspecified systolic (congestive) heart failure (6) Squamous cell lung cancer Current Visit: No Status: Chronic On immunotherapy per patient's oncologist Dr. Booker's note -Oncology consult. Qualifiers: Laterality: left Qualified Code(s): C34.92 - Malignant neoplasm of unspecified part of left bronchus or lung (7) Type 2 diabetes mellitus Current Visit: No Status: Chronic -Insulin Sliding scale with frequent glucose monitoring. Qualifiers: Diabetes mellitus complication status: without complication Diabetes mellitus prison insulin use: with supervisor intermediates use Qualified Code(s): E11.9 - Type 2 diabetes mellitus without complications (8) DVT prophylaxis Current Visit: No Status: Acute Heparin 5000 units subcutaneous twice a day. -IV proton pump inhibitor, protonix 40 mg IV daily. Subjective Principal diagnosis: Acute and chronic respiratory failure with hypoxia Interval history: Patient did well overnight. No acute events. Patient is alert and awake on the vent, and she is able to communicate via pen and paper. She is explicit with her desire to remain full code. Family is at bedside. Objective PUL Vital signs: Last Vital Signs Temp 97.8 F 01/25/17 07:20 Pulse 87 01/25/17 09:00 Resp 20 01/25/17 09:00 BP 90/74 01/25/17 09:00 Pulse Ox 96 01/25/17 09:00 General appearance: other (Sedated and intubated, however, able to communicate via pen and paper.) Eyes: nonicteric, injected ENT: oropharynx moist Neck: supple Effort: other (Intubated) Auscultation: bilateral: diminished breath sounds, wheezes Cardiovascular: regular rate and rhythm Gastrointestinal: normoactive bowel sounds, soft, non-tender, non-distended Integumentary: normal Extremities: no cyanosis, no edema, pulses normal Ventilator Settings Ventilator Settings: Ventilator Settings, Last 8 Hours Ventilator Mode VC+ Ventilator Mode VC+ Ventilator Mode VC+ Ventilator Mode VC+ Ventilator Mode VC+ Ventilator Tidal Volume 500 Setting Ventilator Tidal Volume 500 Setting Ventilator Tidal Volume 500 Setting Ventilator Tidal Volume 500 Setting Ventilator Tidal Volume 500 Setting Ventilator Respiratory Rate 12 Setting Ventilator Respiratory Rate 12 Setting Ventilator Respiratory Rate 12 Setting Ventilator Respiratory Rate 12 Setting Ventilator Respiratory Rate 12 Setting Actual Respiratory Rate 124 Actual Respiratory Rate 12 Actual Respiratory Rate 17 Positive End Expiratory 8 Pressure Positive End Expiratory 8 Pressure Positive End Expiratory 8 Pressure Positive End Expiratory 8 Pressure Positive End Expiratory 8 Pressure Peak Inspiratory Airway 25 Pressure Peak Inspiratory Airway 18 Pressure Peak Inspiratory Airway 28 Pressure Peak Inspiratory Airway 20 Pressure Results - Laboratory Findings CBC and BMP: 01/25/17 03:12 01/25/17 12:20 ABG ABG pH 7.34 pH Units (7.32-7.45) 01/25/17 05:38 ABG pCO2 38 mmHg (35-45) 01/25/17 05:38 ABG pO2 69 mmHg (85-104) L 01/25/17 05:38 ABG O2 Saturation 92 % (95-98) L 01/25/17 05:38 Abnormal lab findings: Abnormal lab results Hgb 10.2 g/dL (11.5-15.4) L 01/25/17 03:12 Hct 32.8 % (35.3-44.9) L 01/25/17 03:12 MCH 26.3 pg (28.0-33.3) L 01/25/17 03:12 MCHC 31.1 g/dL (31.6-35.5) L 01/25/17 03:12 RDW 15.8 % (11.5-14.5) H 01/25/17 03:12 Neutrophils # 9.3 K/mcL (1.6-8.9) H 01/25/17 03:12 Lymphocytes # 0.3 K/mcL (0.6-4.6) L 01/25/17 03:12 ABG pO2 69 mmHg (85-104) L 01/25/17 05:38 ABG HCO3 20 mEq/L (21-27) L 01/25/17 05:38 ABG O2 Saturation 92 % (95-98) L 01/25/17 05:38 ABG Base Excess -5 mEq/L (-2 to 3) L 01/25/17 05:38 VBG pH 7.27 pH Units (7.32-7.42) L 01/25/17 04:42 VBG pO2 123 mmHg (25-50) H 01/25/17 04:42 Sodium 135 mEq/L (136-145) L 01/25/17 03:12 BUN 35 mg/dL (7-20) H D 01/25/17 03:12 Creatinine 2.57 mg/dL (0.57-1.11) H 01/25/17 03:12 Est GFR ( Amer) 22 (> 60) L 01/25/17 03:12 Est GFR (Non-Af Amer) 18 (> 60) L 01/25/17 03:12 Glucose 235 mg/dL (70-99) H 01/25/17 03:12 POC Glucose 225 (58-89) H 01/25/17 05:15 B-Natriuretic Peptide 2038 pg/mL (0-100) H 01/24/17 08:23 - Clinical Findings Intake & Output: Intake & Output 01/24/17 01/25/17 01/25/17 23:59 07:59 15:59 Intake Total 750 / 750 210 / 210 Output Total 475 / 475 95 / 95 0 / 0 Balance 275 / 275 115 / 115 0 / 0 Weight 93.9 kg Consult Discharge Plan - Plan Referrals: Linus Ritchie MD [Primary Care Provider] - <Howard Garcia S - Last Filed: 01/25/17 22:35> Date of Encounter: 01/25/17 Objective PUL Vital signs: Last Vital Signs Temp 97.5 F L 01/25/17 11:00 Pulse 88 01/25/17 18:00 Resp 24 01/25/17 18:00 BP 90/67 01/25/17 18:00 Pulse Ox 89 01/25/17 18:00 Ventilator Settings Ventilator Settings: Ventilator Settings, Last 8 Hours Ventilator Mode A/C Ventilator Tidal Volume 380 Setting Ventilator Respiratory Rate 18 Setting Actual Respiratory Rate 21 Positive End Expiratory 8 Pressure Peak Inspiratory Airway 14 Pressure Results - Laboratory Findings CBC and BMP: 01/25/17 03:12 01/25/17 12:20 ABG ABG pH 7.34 pH Units (7.32-7.45) 01/25/17 05:38 ABG pCO2 38 mmHg (35-45) 01/25/17 05:38 ABG pO2 69 mmHg (85-104) L 01/25/17 05:38 ABG O2 Saturation 92 % (95-98) L 01/25/17 05:38 Abnormal lab findings: Abnormal lab results Hgb 10.2 g/dL (11.5-15.4) L 01/25/17 03:12 Hct 32.8 % (35.3-44.9) L 01/25/17 03:12 MCH 26.3 pg (28.0-33.3) L 01/25/17 03:12 MCHC 31.1 g/dL (31.6-35.5) L 01/25/17 03:12 RDW 15.8 % (11.5-14.5) H 01/25/17 03:12 Neutrophils # 9.3 K/mcL (1.6-8.9) H 01/25/17 03:12 Lymphocytes # 0.3 K/mcL (0.6-4.6) L 01/25/17 03:12 ABG pO2 69 mmHg (85-104) L 01/25/17 05:38 ABG HCO3 20 mEq/L (21-27) L 01/25/17 05:38 ABG O2 Saturation 92 % (95-98) L 01/25/17 05:38 ABG Base Excess -5 mEq/L (-2 to 3) L 01/25/17 05:38 VBG pH 7.27 pH Units (7.32-7.42) L 01/25/17 04:42 VBG pO2 123 mmHg (25-50) H 01/25/17 04:42 Potassium 4.6 mEq/L (3.5-4.5) H 01/25/17 12:20 BUN 42 mg/dL (7-20) H 01/25/17 12:20 Creatinine 3.13 mg/dL (0.57-1.11) H 01/25/17 12:20 Est GFR ( Amer) 17 (> 60) L 01/25/17 12:20 Est GFR (Non-Af Amer) 14 (> 60) L 01/25/17 12:20 Glucose 214 mg/dL (70-99) H 01/25/17 12:20 POC Glucose 164 (58-89) H 01/25/17 17:56 B-Natriuretic Peptide 2038 pg/mL (0-100) H 01/24/17 08:23 - Microbiology Findings Microbiology Findings: Microbiology, Last 48 Hours 01/25/17 09:00 Sputum Culture - Preliminary Sputum - Clinical Findings Intake & Output: Intake & Output 01/25/17 01/25/17 01/25/17 07:59 15:59 23:59 Intake Total 210 / 210 1200 / 1200 1000 / 1000 Output Total 95 / 95 40 / 40 70 / 70 Balance 115 / 115 1160 / 1160 930 / 930 Weight 93.9 kg - Attending Attestation I saw the patient with the resident agree with History and Physical exam findings. Labs and Radiology were reviewed Ventilator data were reviewed adjusted tidal volume and RR to achieve lung protective strategy SUPERVISOR DISPLAY FABRICATION: Patient is conscious following intubated and on sedation NECK : No JVD appreciated Pulmonary : Patient has acute on chronic hypoxic respiratory failure complicated by COPD Vs CHF exacerbation complicated by pneumonia Cardiac : Hemodynamically stable Acute on Chronic systolic dysfunction to hold off diuresis due to worsening kidney injury . Nutrition/GI: PPI prophylaxis Renal : TARAH on Chronic kidney injury diuresis worsened the kidney function will hold off diuresis . Will consider Nephrology consult Heme onc : All Labs reviewed Hand H stable . Will consult oncology regarding prognostication of her squamous cell ca ID : To follow cultures to continue broad spectrum antibiotics Disposition : Remains critically ill Code status: Full Code , Palliative consulted to discuss about future goals of care Spent 32 minutes of Critical Care Time in making medical decision making to prevent further vital organ dysfunction .
--- NOTE | 2017-01-25 10:58 | Electrocardiograph Report ---
[place] [id number] Test Date: 2017-01-24 Pat Name: Mara Piña Department: 102 Room: [facility] Gender: F [employer] Section: : 1940 Requested By: Dayday Encinas Order Number: [id number] Reading MD: Matteo Branch MD Measurements Intervals [place] Rate: 101 P: [place]: 0 QRS: 35 QRSD: 103 T: 87 QT: 352 QTc: 410 Interpretive Statements ATRIAL FIBRILLATION WITH RAPID VENTRICULAR RESPONSE POSSIBLE LEFT VENTRICULAR HYPERTROPHY Electronically Signed On 01-25-2017 10:56:41 EST by Matteo Branch MD
--- NOTE | 2017-01-25 11:37 | Palliative - Consult Note ---
<Nicholas Daley - Last Filed: 01/25/17 11:30> Date of Encounter: 01/25/17 Time of Encounter: 11:30 Palliative-CN HPI - Data of Consult Patient: new to practice Consult date: 01/25/17 Requesting Physician: Theo Guzmán Primary Care Provider: Linus Ritchie MD - Consult Narrative Palliative Care/Comfort Measures: Palliative care Reason for consult: Goals of care discussion History of present illness: Ms. Piña is a 76 year old female with a PMHx of COPD, CHF, small cell lung cancer is admitted to ICU for shortness of breath. Palliative care consult was ordered to discuss goals of care. During time of interview, patient is intubated however is alert and is able to clearly express her wishes and understanding. Prior discussion with cabinet worker revealed patient was agreeable to intubation. During discussion with patient today, she expressed that in the event of cardiopulmonary arrest, patient desires to remain full code. She nodded her understanding and was given an opportunity to ask questions via pen and paper. Family discussion occurred shortly after. , Hay, who is medical power of sports attorney; and son were present for lengthy discussion. Family's questions were answered and they agreed with goals of care set forth by the patient. CC: Theo Guzmán Past Med Surg Social Fam HX - Past Medical History Medical history: cancer, CHF, COPD, coronary artery disease, diabetes, hypertension, myocardial infarction, renal disease Psychiatric history: no psych history - Past Surgical History Surgical History: angioplasty/stent, other (Tubal ligation) - Social History Smoking Status: Former smoker Smokeless Tobacco Status: No Alcohol use: none Drug use: none - Family History Brother Family Member Ethnicity: Non- Living Status: Hx Family Cardiac Disorders: Yes ([place]) Mother Family Member Ethnicity: Non- Living Status: Father Family Member Ethnicity: Non- Living Status: Hx Family Cardiac Disorders: Yes (Aneurysm) Sister Family Member Ethnicity: Non- Hx Family Cancer: Yes (breast cancer) Medications and Allergies Clopidogrel [Plavix] 75 mg PO DAILY 05/15/15 [History] Aspirin Enteric Coated [Aspirin EC] 81 mg PO DAILY 07/17/15 [History] Ergocalciferol (VITAMIN D2) [Vitamin D2] 2,000 unit PO DAILY 07/17/15 [History] Isosorbide MONOnitrate (24 HR) [Imdur] 30 mg PO DAILY 06/08/16 [History] Diltiazem CD (24hr) [Cardizem CD] 120 mg PO DAILY 08/22/16 [History] Oxygen 2 l .ROUTE AD 08/22/16 [History] Levothyroxine [Synthroid] 75 mcg PO DAILY #30 tablet 01/20/17 [Rx] Albuterol Sulfate [Albuterol Inhaler] 1 - 2 puff IH Q6HR 01/24/17 [History] Tiotropium [Spiriva] 18 mcg IH DAILY 01/24/17 [History] Umeclidinium [place] [Incruse Ellipta] 62.5 mcg IH DAILY 01/24/17 [History] 3 Allergy/AdvReac Type Severity Reaction Status Date / Time No Known Allergies Allergy Verified 01/20/17 15:47 ROS unobtainable: due to endotracheal tube Palliative Care-Exam - Constitutional Vitals: Temp Pulse Resp BP Pulse Ox 97.5 F L 88 18 96/67 97 01/25/17 11:00 01/25/17 11:27 01/25/17 11:00 01/25/17 11:00 01/25/17 11:00 Internal Medicine - CN: Reslt - Labs CBC & Chem 7: 01/25/17 03:12 01/25/17 03:12 Labs: Short CBC 01/25/17 Range/Units 03:12 WBC 9.8 (4.3-11.1) K/mcL Hgb 10.2 L (11.5-15.4) g/dL Hct 32.8 L (35.3-44.9) % Plt Count 144 (140-400) K/mcL Neutrophils # 9.3 H (1.6-8.9) K/mcL BMP 01/25/17 03:12 Sodium 135 L Potassium 4.4 D Chloride 104 Carbon Dioxide 22 BUN 35 H D Creatinine 2.57 H Glucose 235 H Calcium 9.2 - ABG Interpretation ABG results: ABG ABG pH 7.34 pH Units (7.32-7.45) 01/25/17 05:38 ABG pCO2 38 mmHg (35-45) 01/25/17 05:38 ABG pO2 69 mmHg (85-104) L 01/25/17 05:38 ABG O2 Saturation 92 % (95-98) L 01/25/17 05:38 - Impressions Impressions Chest X-Ray 01/24/17 11:36 IMPRESSION: Unchanged large left pleural effusion and bilateral consolidations. D/ / Nando Ryan MD / Nando Ryan MD Interpreting Provider: Nando Ryan MD Consult Discharge Plan - Plan Referrals: Linus Ritchie MD [Primary Care Provider] - Palliative Quality Palliative Quality: Screen for Code Status: Yes, Screen for Goals of Care: Yes, Screen for Pain: No, If Pain Regimen Started, Initiate Bowel Regimen: NA, Screen for Nausea/Vomitting: No Code Status: 01/24/17 18:02 CODE [Resuscitation Status: Active] [RES] Routine Comment: Resuscitation Status: Full Code <Ramo Ward - Last Filed: 01/25/17 11:55> Date of Encounter: 01/25/17 - Assessment and Plan (1) End of life care Current Visit: No Status: Acute Assessment and plan: Patient is alert and oriented and reaffirmed that she wants to remain full code , including CPR and reintubation as necessary Lengthy discussion with Jesus Piña (, POA) and Luisfranco Piña (son) regarding patient status They agree that the patient is oriented and feel that full code is the most appropriate for the time being This can be revisited in the future if there is a change in her condition (2) Hypoxia Current Visit: Yes Status: Acute Assessment and plan: COPD, PNA, and SCLC Currently ventilated Treatment of COPD with steroids is conflicting with immunotherapy for SCLC Managed by pulmonary (3) Dyspnea Current Visit: No Status: Acute Assessment and plan: See plan of care above Qualifiers: Dyspnea type: acute respiratory distress Qualified Code(s): R06.03 - Acute respiratory distress (4) Lung cancer Current Visit: Yes Status: Chronic Assessment and plan: Being treated with immunotherapy Qualifiers: Laterality: unspecified laterality Lung location: unspecified part of lung Qualified Code(s): C34.90 - Malignant neoplasm of unspecified part of unspecified bronchus or lung (5) Decreased urine output Current Visit: Yes Status: Acute Assessment and plan: Likely secondary to TARAH If there is not improvement, it may be necessary to discuss whether patient desires dialysis Palliative-CN HPI - Data of Consult Requesting Physician: Theo Guzmán Primary Care Provider: Linus Ritchie MD - Consult Narrative History of present illness: Ms. Piña is a 76 year old female CC: Theo Guzmán Palliative Care-Exam - Constitutional Vitals: Temp Pulse Resp BP Pulse Ox 97.5 F L 88 24 96/67 99 01/25/17 11:00 01/25/17 11:27 01/25/17 11:09 01/25/17 11:09 01/25/17 11:09 General appearance: Present: obese - Head Head Exam: Present: atraumatic, normal inspection, normocephalic - Neck Neck exam: Present: normal inspection - Respiratory Respiratory exam: Present: decreased breath sounds, CTAB - Cardiovascular Cardiovascular exam: Present: RRR, +S1, +S2 - GI/Abdominal Exam GI/Abdominal exam: Present: diminished bowel sounds, soft - Neurological Exam Neurological exam: Present: alert - Skin Skin exam: Present: warm Internal Medicine - CN: Reslt - Labs CBC & Chem 7: 01/25/17 03:12 01/25/17 03:12 Labs: Short CBC 01/25/17 Range/Units 03:12 WBC 9.8 (4.3-11.1) K/mcL Hgb 10.2 L (11.5-15.4) g/dL Hct 32.8 L (35.3-44.9) % Plt Count 144 (140-400) K/mcL Neutrophils # 9.3 H (1.6-8.9) K/mcL BMP 01/25/17 03:12 Sodium 135 L Potassium 4.4 D Chloride 104 Carbon Dioxide 22 BUN 35 H D Creatinine 2.57 H Glucose 235 H Calcium 9.2 - ABG Interpretation ABG results: ABG ABG pH 7.34 pH Units (7.32-7.45) 01/25/17 05:38 ABG pCO2 38 mmHg (35-45) 01/25/17 05:38 ABG pO2 69 mmHg (85-104) L 01/25/17 05:38 ABG O2 Saturation 92 % (95-98) L 01/25/17 05:38 - Impressions Impressions Chest X-Ray 01/24/17 11:36 IMPRESSION: Unchanged large left pleural effusion and bilateral consolidations. D/ / Nanod Ryan MD / Nando Ryan MD Interpreting Provider: Nando Ryan MD Palliative Quality Code Status: 01/24/17 18:02 CODE [Resuscitation Status: Active] [RES] Routine Comment: Resuscitation Status: Full Code <Edvin Larios - Last Filed: 01/25/17 15:29> Date of Encounter: 01/25/17 Palliative-CN HPI - Data of Consult Requesting Physician: Theo Guzmán Primary Care Provider: Linus Ritchie MD - Consult Narrative History of present illness: Ms. Piña is a 76 year old female CC: Theo Guzmán Palliative Care-Exam - Constitutional Vitals: Temp Pulse Resp BP Pulse Ox 97.5 F L 87 21 98/71 93 01/25/17 11:00 01/25/17 14:00 01/25/17 14:00 01/25/17 14:00 01/25/17 14:00 Internal Medicine - CN: Reslt - Labs CBC & Chem 7: 01/25/17 03:12 01/25/17 12:20 Labs: Short CBC 01/25/17 Range/Units 03:12 WBC 9.8 (4.3-11.1) K/mcL Hgb 10.2 L (11.5-15.4) g/dL Hct 32.8 L (35.3-44.9) % Plt Count 144 (140-400) K/mcL Neutrophils # 9.3 H (1.6-8.9) K/mcL BMP 01/25/17 01/25/17 03:12 12:20 Sodium 135 L 136 Potassium 4.4 D 4.6 H Chloride 104 105 Carbon Dioxide 22 20 BUN 35 H D 42 H Creatinine 2.57 H 3.13 H Glucose 235 H 214 H Calcium 9.2 9.0 - ABG Interpretation ABG results: ABG ABG pH 7.34 pH Units (7.32-7.45) 01/25/17 05:38 ABG pCO2 38 mmHg (35-45) 01/25/17 05:38 ABG pO2 69 mmHg (85-104) L 01/25/17 05:38 ABG O2 Saturation 92 % (95-98) L 01/25/17 05:38 - Impressions Impressions Echocardiogram Limited Views 01/25/17 07:32 Impressions: LVEF 40%. Mildly dilated left ventricle. Moderate global left ventricular systolic dysfunction. There is a small pericardial effusion present. There is no echocardiographic evidence of tamponade. No significant changes compared to prior report from 07/2016. Left Ventricular Wall Motion: Rest Echo Findings The apex, apical inferior, mid inferior, basal inferior, apical anterior, mid anterior, basal anterior, apical septal, mid inferior septal, basal inferior septal, apical lateral, mid anterior lateral, basal anterior lateral, mid anterior septal, mid inferior lateral, basal anterior septal and basal inferior lateral dyer were hypokinetic. Findings: Study Quality * Technically adequate exam. ECG Findings * Normal sinus rhythm. Left Ventricle * LVEF 40%. * Mildly dilated left ventricle. * Moderate global left ventricular systolic dysfunction. Right Ventricle * Normal right ventricular structure and function. Pericardium * There is a small pericardial effusion present. * There is no echocardiographic evidence of tamponade. - Attending Attestation I examined this patient and my medical decision-making was reviewed with the Resident Physician. I agree with the documented findings, disposition and treatment plan as described except to the extent set forth below. Palliative Quality Code Status: 01/24/17 18:02 CODE [Resuscitation Status: Active] [RES] Routine Comment: Resuscitation Status: Full Code
[2017-01-25 12:43] LABS: Potassium 4.6 mEq/L (3.5-4.5)
[2017-01-25] MEDS ORDERED: 0.9 % Sodium Chloride 1,000 ML IVC ONE ×2 (12:54→16:24)
[2017-01-25] MEDS: MethylPREDNISolone 40 MG/ML VIAL IVP SCH (17:09)
[2017-01-26] MEDS: Ipratropium/Albuterol Neb 3 ML IH SCH ×6 (00:46→20:08)
[2017-01-26] MEDS: Lacri-Lube 3.5 GM TUBE BOTH EYES SCH ×7 (00:54→23:01)
[2017-01-26] MEDS: Insulin LISPRO 300 UNITS/3 ML VIAL SQ SCH ×4 (00:55→17:50)
[2017-01-26] MEDS: MethylPREDNISolone 40 MG/ML VIAL IVP SCH ×4 (00:57→23:00)
[2017-01-26 05:34] LABS: ABG Base Excess -7 mEq/L (-2 to 3); ABG HCO3 18 mEq/L (21-27); ABG Oxygen Saturation 92 % (95-98); ABG PCO2 36 mmHg (35-45); ABG PH 7.31 pH Units (7.32-7.45); ABG PO2 69 mmHg (85-104); ABG TCO2 19 mEq/L (20-26); Blood Gas Modality VC; Blood Gas PEEP 8 cm H2O; Blood Gas Respiration Rate 18; Blood Gas VT 380 cc
[2017-01-26] MEDS: *HR* Heparin 5,000 UNIT/ML VIAL SQ SCH ×2 (05:47→17:49)
[2017-01-26] MEDS: Dexmedetomidine HCl 400 MCG/100 ML MLS IVC SCH ×3 (05:48→19:18)
[2017-01-26] MEDS: Piperacillin/Tazobactam 3.375 GM in 0.9 % Sodium Chloride Mini Bag 100 ML IVPB SCH (06:19)
[2017-01-26] MEDS: Budesonide/Formoterol 160/4.5 MDI IH SCH ×2 (07:35→20:08)
[2017-01-26] MEDS: Chlorhexidine Rinse 15 ML MOUTHWASH MM SCH ×2 (08:29→19:18)
[2017-01-26] MEDS: Aspirin 81 MG TAB.CHEW PO SCH (08:29)
[2017-01-26] MEDS: Diltiazem CD (24hr) 120 MG CAPSULE PO SCH (08:29)
[2017-01-26] MEDS: Pantoprazole 40 MG VIAL IVP SCH (08:29)
--- NOTE | 2017-01-26 09:30 | Palliative Progress Note ---
<Nicholas Daley - Last Filed: 01/26/17 09:28> Date of Encounter: 01/26/17 Time of Encounter: 09:28 - Time Spent With Patient Total time spent is greater than 50% in coordination of care (as documented) at patient's floor/unit and/or counseling patient: - Subjective Interval history: Ms. Piña was seen and examined at bedside this morning. She is intubated during time of interview but is able to communicate via yes and no questions and mouthing some short phrases. She is awake and alert. No complaints of n/v, pain at this time. States she feels about the same as yesterday. No questions at this time. No family present at bedside. - Constitutional Vitals: Abnormal lab results Hgb 10.2 g/dL (11.5-15.4) L 01/25/17 03:12 Hct 32.8 % (35.3-44.9) L 01/25/17 03:12 MCH 26.3 pg (28.0-33.3) L 01/25/17 03:12 MCHC 31.1 g/dL (31.6-35.5) L 01/25/17 03:12 RDW 15.8 % (11.5-14.5) H 01/25/17 03:12 Neutrophils # 9.3 K/mcL (1.6-8.9) H 01/25/17 03:12 Lymphocytes # 0.3 K/mcL (0.6-4.6) L 01/25/17 03:12 ABG pH 7.31 pH Units (7.32-7.45) L 01/26/17 05:30 ABG pO2 69 mmHg (85-104) L 01/26/17 05:30 ABG HCO3 18 mEq/L (21-27) L 01/26/17 05:30 ABG Total CO2 19 mEq/L (20-26) L 01/26/17 05:30 ABG O2 Saturation 92 % (95-98) L 01/26/17 05:30 ABG Base Excess -7 mEq/L (-2 to 3) L 01/26/17 05:30 VBG pH 7.20 pH Units (7.32-7.42) L* 01/26/17 06:40 VBG pO2 123 mmHg (25-50) H 01/25/17 04:42 Potassium 4.6 mEq/L (3.5-4.5) H 01/25/17 12:20 BUN 42 mg/dL (7-20) H 01/25/17 12:20 Creatinine 3.13 mg/dL (0.57-1.11) H 01/25/17 12:20 Est GFR ( Amer) 17 (> 60) L 01/25/17 12:20 Est GFR (Non-Af Amer) 14 (> 60) L 01/25/17 12:20 Glucose 214 mg/dL (70-99) H 01/25/17 12:20 POC Glucose 172 (58-89) H 01/26/17 06:13 B-Natriuretic Peptide 2038 pg/mL (0-100) H 01/24/17 08:23 General appearance: Present: cooperative, no acute distress, obese - Head Head exam: Present: atraumatic, normal inspection, normocephalic Palliative Quality Palliative Quality: Screen for Code Status: Yes, Screen for Goals of Care: Yes, Screen for Pain: No, If Pain Regimen Started, Initiate Bowel Regimen: NA, Screen for Nausea/Vomitting: No Code Status: 01/24/17 18:02 CODE [Resuscitation Status: Active] [RES] Routine Comment: Resuscitation Status: Full Code - Labs CBC & Chem 7: 01/25/17 03:12 01/25/17 12:20 Labs: Laboratory Results - last 24 hr 01/25/17 01/25/17 01/25/17 12:19 12:20 14:00 Sample Site ABG pH ABG pCO2 ABG pO2 ABG HCO3 ABG Total CO2 ABG O2 Saturation ABG Base Excess VBG pH Respiration Rate O2 Delivery Device Blood Gas Modality Inspired O2 Tidal Volume PEEP Sodium 136 Potassium 4.6 H Chloride 105 Carbon Dioxide 20 BUN 42 H Creatinine 3.13 H Est GFR ( Amer) 17 L Est GFR (Non-Af Amer) 14 L BUN/Creatinine Ratio 13 Glucose 214 H POC Glucose 197 H Calculated Osmolality 299 Calcium 9.0 Venous Ioniz Calcium Vancomycin Trough 13.5 01/25/17 01/25/17 01/26/17 17:56 23:52 05:30 Sample Site L Brach ABG pH 7.31 L ABG pCO2 36 ABG pO2 69 L ABG HCO3 18 L ABG Total CO2 19 L ABG O2 Saturation 92 L ABG Base Excess -7 L VBG pH Respiration Rate 18 O2 Delivery Device Adult Vent Blood Gas Modality VC Inspired O2 70.0 Tidal Volume 380 PEEP 8 Sodium Potassium Chloride Carbon Dioxide BUN Creatinine Est GFR ( Amer) Est GFR (Non-Af Amer) BUN/Creatinine Ratio Glucose POC Glucose 164 H 149 H Calculated Osmolality Calcium Venous Ioniz Calcium Vancomycin Trough 01/26/17 01/26/17 06:13 06:40 Sample Site ABG pH ABG pCO2 ABG pO2 ABG HCO3 ABG Total CO2 ABG O2 Saturation ABG Base Excess VBG pH 7.20 L* Respiration Rate O2 Delivery Device Blood Gas Modality Inspired O2 Tidal Volume PEEP Sodium Potassium Chloride Carbon Dioxide BUN Creatinine Est GFR ( Amer) Est GFR (Non-Af Amer) BUN/Creatinine Ratio Glucose POC Glucose 172 H Calculated Osmolality Calcium Venous Ioniz Calcium 1.20 Vancomycin Trough - Impressions Impressions Echocardiogram Limited Views 01/25/17 07:32 Impressions: LVEF 40%. Mildly dilated left ventricle. Moderate global left ventricular systolic dysfunction. There is a small pericardial effusion present. There is no echocardiographic evidence of tamponade. No significant changes compared to prior report from 07/2016. Left Ventricular Wall Motion: Rest Echo Findings The apex, apical inferior, mid inferior, basal inferior, apical anterior, mid anterior, basal anterior, apical septal, mid inferior septal, basal inferior septal, apical lateral, mid anterior lateral, basal anterior lateral, mid anterior septal, mid inferior lateral, basal anterior septal and basal inferior lateral dyer were hypokinetic. Findings: Study Quality * Technically adequate exam. ECG Findings * Normal sinus rhythm. Left Ventricle * LVEF 40%. * Mildly dilated left ventricle. * Moderate global left ventricular systolic dysfunction. Right Ventricle * Normal right ventricular structure and function. Pericardium * There is a small pericardial effusion present. * There is no echocardiographic evidence of tamponade. - ABG Interpretation ABG results: ABG ABG pH 7.31 pH Units (7.32-7.45) L 01/26/17 05:30 ABG pCO2 36 mmHg (35-45) 01/26/17 05:30 ABG pO2 69 mmHg (85-104) L 01/26/17 05:30 ABG O2 Saturation 92 % (95-98) L 01/26/17 05:30 Consult Discharge Plan - Plan Referrals: Linus Ritchie MD [Primary Care Provider] - <Edvin Larios L - Last Filed: 01/26/17 09:40> Date of Encounter: 01/26/17 - Time Spent With Patient Total time spent is greater than 50% in coordination of care (as documented) at patient's floor/unit and/or counseling patient: - Constitutional Vitals: Abnormal lab results Hgb 10.2 g/dL (11.5-15.4) L 01/25/17 03:12 Hct 32.8 % (35.3-44.9) L 01/25/17 03:12 MCH 26.3 pg (28.0-33.3) L 01/25/17 03:12 MCHC 31.1 g/dL (31.6-35.5) L 01/25/17 03:12 RDW 15.8 % (11.5-14.5) H 01/25/17 03:12 Neutrophils # 9.3 K/mcL (1.6-8.9) H 01/25/17 03:12 Lymphocytes # 0.3 K/mcL (0.6-4.6) L 01/25/17 03:12 ABG pH 7.31 pH Units (7.32-7.45) L 01/26/17 05:30 ABG pO2 69 mmHg (85-104) L 01/26/17 05:30 ABG HCO3 18 mEq/L (21-27) L 01/26/17 05:30 ABG Total CO2 19 mEq/L (20-26) L 01/26/17 05:30 ABG O2 Saturation 92 % (95-98) L 01/26/17 05:30 ABG Base Excess -7 mEq/L (-2 to 3) L 01/26/17 05:30 VBG pH 7.20 pH Units (7.32-7.42) L* 01/26/17 06:40 VBG pO2 123 mmHg (25-50) H 01/25/17 04:42 Potassium 4.6 mEq/L (3.5-4.5) H 01/25/17 12:20 BUN 42 mg/dL (7-20) H 01/25/17 12:20 Creatinine 3.13 mg/dL (0.57-1.11) H 01/25/17 12:20 Est GFR ( Amer) 17 (> 60) L 01/25/17 12:20 Est GFR (Non-Af Amer) 14 (> 60) L 01/25/17 12:20 Glucose 214 mg/dL (70-99) H 01/25/17 12:20 POC Glucose 172 (58-89) H 01/26/17 06:13 B-Natriuretic Peptide 2038 pg/mL (0-100) H 01/24/17 08:23 - Attending Attestation I examined this patient and my medical decision-making was reviewed with the Resident Physician. I agree with the documented findings, disposition and treatment plan as described except to the extent set forth below. Palliative Quality Code Status: 01/24/17 18:02 CODE [Resuscitation Status: Active] [RES] Routine Comment: Resuscitation Status: Full Code - Labs CBC & Chem 7: 01/25/17 03:12 01/25/17 12:20 Labs: Laboratory Results - last 24 hr 01/25/17 01/25/17 01/25/17 12:19 12:20 14:00 Sample Site ABG pH ABG pCO2 ABG pO2 ABG HCO3 ABG Total CO2 ABG O2 Saturation ABG Base Excess VBG pH Respiration Rate O2 Delivery Device Blood Gas Modality Inspired O2 Tidal Volume PEEP Sodium 136 Potassium 4.6 H Chloride 105 Carbon Dioxide 20 BUN 42 H Creatinine 3.13 H Est GFR ( Amer) 17 L Est GFR (Non-Af Amer) 14 L BUN/Creatinine Ratio 13 Glucose 214 H POC Glucose 197 H Calculated Osmolality 299 Calcium 9.0 Venous Ioniz Calcium Vancomycin Trough 13.5 01/25/17 01/25/17 01/26/17 17:56 23:52 05:30 Sample Site L Brach ABG pH 7.31 L ABG pCO2 36 ABG pO2 69 L ABG HCO3 18 L ABG Total CO2 19 L ABG O2 Saturation 92 L ABG Base Excess -7 L VBG pH Respiration Rate 18 O2 Delivery Device Adult Vent Blood Gas Modality VC Inspired O2 70.0 Tidal Volume 380 PEEP 8 Sodium Potassium Chloride Carbon Dioxide BUN Creatinine Est GFR ( Amer) Est GFR (Non-Af Amer) BUN/Creatinine Ratio Glucose POC Glucose 164 H 149 H Calculated Osmolality Calcium Venous Ioniz Calcium Vancomycin Trough 01/26/17 01/26/17 06:13 06:40 Sample Site ABG pH ABG pCO2 ABG pO2 ABG HCO3 ABG Total CO2 ABG O2 Saturation ABG Base Excess VBG pH 7.20 L* Respiration Rate O2 Delivery Device Blood Gas Modality Inspired O2 Tidal Volume PEEP Sodium Potassium Chloride Carbon Dioxide BUN Creatinine Est GFR ( Amer) Est GFR (Non-Af Amer) BUN/Creatinine Ratio Glucose POC Glucose 172 H Calculated Osmolality Calcium Venous Ioniz Calcium 1.20 Vancomycin Trough - Impressions Impressions Echocardiogram Limited Views 01/25/17 07:32 Impressions: LVEF 40%. Mildly dilated left ventricle. Moderate global left ventricular systolic dysfunction. There is a small pericardial effusion present. There is no echocardiographic evidence of tamponade. No significant changes compared to prior report from 07/2016. Left Ventricular Wall Motion: Rest Echo Findings The apex, apical inferior, mid inferior, basal inferior, apical anterior, mid anterior, basal anterior, apical septal, mid inferior septal, basal inferior septal, apical lateral, mid anterior lateral, basal anterior lateral, mid anterior septal, mid inferior lateral, basal anterior septal and basal inferior lateral dyer were hypokinetic. Findings: Study Quality * Technically adequate exam. ECG Findings * Normal sinus rhythm. Left Ventricle * LVEF 40%. * Mildly dilated left ventricle. * Moderate global left ventricular systolic dysfunction. Right Ventricle * Normal right ventricular structure and function. Pericardium * There is a small pericardial effusion present. * There is no echocardiographic evidence of tamponade. - ABG Interpretation ABG results: ABG ABG pH 7.31 pH Units (7.32-7.45) L 01/26/17 05:30 ABG pCO2 36 mmHg (35-45) 01/26/17 05:30 ABG pO2 69 mmHg (85-104) L 01/26/17 05:30 ABG O2 Saturation 92 % (95-98) L 01/26/17 05:30
[2017-01-26 09:45] LABS: Basophils % 0.1 %; Hematocrit 31.9 % (35.3-44.9); Hemoglobin 10.2 g/dL (11.5-15.4); Immature Granulocytes % 0.7 % (0-4); Lymphocytes # 0.3 K/mcL (0.6-4.6); Lymphocytes % 2.2 %; Mean Corpuscular Hemoglobin 26.9 pg (28.0-33.3); Mean Corpuscular Volume 84.2 fL (83.0-100.0); Mean Platelet Volume 10.7 fL (9.4-12.4); Monocytes # 0.4 K/mcL (0.0-1.3); Monocytes % 2.9 %; Neutrophils # 12.6 K/mcL (1.6-8.9); Platelet Count 164 K/mcL (140-400); Red Blood Count 3.79 M/mcL (3.82-4.97); Red Cell Distribution Width 16.1 % (11.5-14.5); Segmented Neutrophils % 94.1 %
[2017-01-26 09:56] LABS: Potassium 4.2 mEq/L (3.5-4.5)
[2017-01-26 09:57] LABS: Calcium 8.7 mg/dL (8.6-10.8)
[2017-01-26 11:19] LABS: Creatinine,Urine 124 mg/dL
[2017-01-26 11:21] LABS: Sodium, Urine < 20.0 mEq/L
--- NOTE | 2017-01-26 12:31 | Pulmonology Progress Note ---
<Kerry Fraga - Last Filed: 01/26/17 17:41> Date of Encounter: 01/26/17 Time of Encounter: 12:31 Assessment and Plan (1) Acute and chronic respiratory failure with hypoxia Current Visit: No Status: Acute Likely multifactorial including acute exacerbation of COPD, CHF, possible pneumonia in the setting of lung cancer. -Continue mechanical ventilation. Decrease Fi02 to 40% for potential breathing trial this evening. -Sputum culture preliminarly negative -Limited echo 01/25 LVEF 40% with mild dilated of LV. -Patient creatinine continuing to trend upwards. -Consult to nephrology -Urine creatinine, sodium, and urea nitrogen. -Continue zosyn for PNA coverage. DC vancomycin 2/2 kidney function. -Steroids, Symbicort, and bronchodilators for COPD exacerbation. -Continue close monitoring in ICU. (2) Acute on chronic renal failure Current Visit: Yes Status: Acute Patient's creatinine trending up to 3.78 this morning from 3.13 yesterday. -Discontinue Lasix. -Continue to hold Vanc. -IV bolus of normal saline -Await nephro recommendations -FU urine creatinine, urea, and sodium. Qualifiers: Acute renal failure type: unspecified Chronic kidney disease stage: stage 4 (severe) Qualified Code(s): N17.9 - Acute kidney failure, unspecified; N18.4 - Chronic kidney disease, stage 4 (severe); N18.4 - Chronic kidney disease , stage 4 (severe); N18.4 - Chronic kidney disease, stage 4 (severe); N18.4 - Chronic kidney disease, stage 4 (severe) (3) Pneumonia Current Visit: Yes Status: Suspected Chest x-ray on 01/24/2017 shows unchanged large left pleural effusion and bilateral consolidations. -Sputum culture preliminarily negative. -Blood culture preliminarily negative. -Zosyn day 3. Qualifiers: Pneumonia type: due to unspecified organism Laterality: right Lung location: lower lobe of lung Qualified Code(s): J18.1 - Lobar pneumonia, unspecified organism (4) Acute exacerbation of chronic obstructive pulmonary disease (COPD) Current Visit: No Status: Acute -Continue Solu-Medrol, Symbicort, and bronchodilators. (5) Congestive heart failure Current Visit: No Status: Acute Echocardiogram done today on 01/25/2017 shows minimal changes from echo performed on 08/23/2016 which shows LVEF of 40% with systolic dysfunction. -Lasix held due to acute kidney injury. Creatinine 3.13. Qualifiers: Congestive heart failure type: systolic Congestive heart failure chronicity : unspecified congestive heart failure chronicity Qualified Code(s): I50.20 - Unspecified systolic (congestive) heart failure (6) Squamous cell lung cancer Current Visit: No Status: Chronic On immunotherapy per patient's oncologist Dr. Booker's note -Oncology consult. Qualifiers: Laterality: left Qualified Code(s): C34.92 - Malignant neoplasm of unspecified part of left bronchus or lung (7) Type 2 diabetes mellitus Current Visit: No Status: Chronic -Insulin Sliding scale with frequent glucose monitoring. Qualifiers: Diabetes mellitus complication status: without complication Diabetes mellitus assistant terminal manager insulin use: with group home use Qualified Code(s): E11.9 - Type 2 diabetes mellitus without complications; Z79.4 - [facility] (current) use of insulin; Z79.4 - [facility] (current) use of insulin; Z79.4 - terminal operator ( current) use of insulin; Z79.4 - terminal operator (current) use of insulin (8) DVT prophylaxis Current Visit: No Status: Acute Heparin 5000 units subcutaneous twice a day. -GI prophylaxis- IV proton pump inhibitor, protonix 40 mg IV daily. Subjective Principal diagnosis: Acute and chronic respiratory failure with hypoxia Interval history: Patient did well overnight. No acute events. Objective PUL Vital signs: Last Vital Signs Temp 97.4 F L 01/26/17 07:30 Pulse 91 01/26/17 11:47 Resp 35 01/26/17 11:47 BP 100/67 01/26/17 11:47 Pulse Ox 97 01/26/17 11:47 General appearance: no acute distress, other (Sedated and intubated) Eyes: nonicteric ENT: oropharynx moist Auscultation: bilateral: diminished breath sounds, rales Cardiovascular: regular rate and rhythm Gastrointestinal: normoactive bowel sounds, soft, non-tender Integumentary: normal Extremities: no clubbing, edema (1+ bilaterally) unable to assess due to mental status Ventilator Settings Ventilator Settings: Ventilator Settings, Last 8 Hours Ventilator Mode VC+ Ventilator Mode VC+ Ventilator Mode VC+ Ventilator Mode VC+ Ventilator Mode VC+ Ventilator Mode VC+ Ventilator Mode VC+ Ventilator Mode VC+ Ventilator Mode VC+ Ventilator Mode VC+ Ventilator Tidal Volume 420 Setting Ventilator Tidal Volume 420 Setting Ventilator Tidal Volume 420 Setting Ventilator Tidal Volume 420 Setting Ventilator Tidal Volume 420 Setting Ventilator Tidal Volume 420 Setting Ventilator Tidal Volume 380 Setting Ventilator Tidal Volume 380 Setting Ventilator Tidal Volume 380 Setting Ventilator Tidal Volume 380 Setting Ventilator Respiratory Rate 22 Setting Ventilator Respiratory Rate 22 Setting Ventilator Respiratory Rate 22 Setting Ventilator Respiratory Rate 22 Setting Ventilator Respiratory Rate 22 Setting Ventilator Respiratory Rate 22 Setting Ventilator Respiratory Rate 18 Setting Ventilator Respiratory Rate 18 Setting Ventilator Respiratory Rate 18 Setting Ventilator Respiratory Rate 18 Setting Actual Respiratory Rate 23 Actual Respiratory Rate 26 Actual Respiratory Rate 22 Actual Respiratory Rate 24 Actual Respiratory Rate 28 Actual Respiratory Rate 26 Actual Respiratory Rate 20 Actual Respiratory Rate 29 Actual Respiratory Rate 18 Positive End Expiratory 8 Pressure Positive End Expiratory 8 Pressure Positive End Expiratory 8 Pressure Positive End Expiratory 8 Pressure Positive End Expiratory 8 Pressure Positive End Expiratory 8 Pressure Positive End Expiratory 8 Pressure Positive End Expiratory 8 Pressure Positive End Expiratory 8 Pressure Positive End Expiratory 8 Pressure Peak Inspiratory Airway 14 Pressure Peak Inspiratory Airway 14 Pressure Peak Inspiratory Airway 20 Pressure Peak Inspiratory Airway 20 Pressure Peak Inspiratory Airway 20 Pressure Peak Inspiratory Airway 18 Pressure Peak Inspiratory Airway 14 Pressure Peak Inspiratory Airway 15 Pressure Peak Inspiratory Airway 15 Pressure Results - Laboratory Findings CBC and BMP: 01/26/17 09:30 01/26/17 09:30 ABG ABG pH 7.31 pH Units (7.32-7.45) L 01/26/17 05:30 ABG pCO2 36 mmHg (35-45) 01/26/17 05:30 ABG pO2 69 mmHg (85-104) L 01/26/17 05:30 ABG O2 Saturation 92 % (95-98) L 01/26/17 05:30 Abnormal lab findings: Abnormal lab results WBC 13.4 K/mcL (4.3-11.1) H 01/26/17 09:30 RBC 3.79 M/mcL (3.82-4.97) L 01/26/17 09:30 Hgb 10.2 g/dL (11.5-15.4) L 01/26/17 09:30 Hct 31.9 % (35.3-44.9) L 01/26/17 09:30 MCH 26.9 pg (28.0-33.3) L 01/26/17 09:30 RDW 16.1 % (11.5-14.5) H 01/26/17 09:30 Neutrophils # 12.6 K/mcL (1.6-8.9) H 01/26/17 09:30 Lymphocytes # 0.3 K/mcL (0.6-4.6) L 01/26/17 09:30 ABG pH 7.31 pH Units (7.32-7.45) L 01/26/17 05:30 ABG pO2 69 mmHg (85-104) L 01/26/17 05:30 ABG HCO3 18 mEq/L (21-27) L 01/26/17 05:30 ABG Total CO2 19 mEq/L (20-26) L 01/26/17 05:30 ABG O2 Saturation 92 % (95-98) L 01/26/17 05:30 ABG Base Excess -7 mEq/L (-2 to 3) L 01/26/17 05:30 VBG pH 7.20 pH Units (7.32-7.42) L* 01/26/17 06:40 VBG pO2 123 mmHg (25-50) H 01/25/17 04:42 Carbon Dioxide 18 mEq/L (19-29) L 01/26/17 09:30 BUN 64 mg/dL (7-20) H D 01/26/17 09:30 Creatinine 3.78 mg/dL (0.57-1.11) H 01/26/17 09:30 Est GFR ( Amer) 14 (> 60) L 01/26/17 09:30 Est GFR (Non-Af Amer) 12 (> 60) L 01/26/17 09:30 Glucose 196 mg/dL (70-99) H 01/26/17 09:30 POC Glucose 210 (58-89) H 01/26/17 11:53 Calculated Osmolality 314 (280-300) H 01/26/17 09:30 Phosphorus 5.0 mg/dL (2.3-4.7) H 01/26/17 09:30 B-Natriuretic Peptide 2038 pg/mL (0-100) H 01/24/17 08:23 - Microbiology Findings Microbiology Findings: Microbiology, Last 48 Hours 01/25/17 09:00 Sputum Culture - Preliminary Sputum - Clinical Findings Intake & Output: Intake & Output 01/25/17 01/26/17 01/26/17 23:59 07:59 15:59 Intake Total 1300 / 1300 100 / 100 437 / 437 Output Total 455 / 455 100 / 100 Balance 845 / 845 0 / 0 437 / 437 Weight 93.01 kg Consult Discharge Plan - Plan Referrals: Linus Ritchie MD [Primary Care Provider] - <Howard Garcia S - Last Filed: 01/26/17 22:46> Date of Encounter: 01/26/17 Objective PUL Vital signs: Last Vital Signs Temp 96.6 F L 01/26/17 20:54 Pulse 96 01/26/17 22:00 Resp 22 01/26/17 22:22 BP 115/82 01/26/17 22:22 Pulse Ox 98 01/26/17 22:22 Ventilator Settings Ventilator Settings: Ventilator Settings, Last 8 Hours Ventilator Mode VC+ Ventilator Mode VC+ Ventilator Mode VC+ Ventilator Mode VC+ Ventilator Mode VC+ Ventilator Mode VC+ Ventilator Mode VC+ Ventilator Mode VC+ Ventilator Mode VC+ Ventilator Mode VC+ Ventilator Mode VC+ Ventilator Tidal Volume 420 Setting Ventilator Tidal Volume 420 Setting Ventilator Tidal Volume 420 Setting Ventilator Tidal Volume 420 Setting Ventilator Tidal Volume 420 Setting Ventilator Tidal Volume 420 Setting Ventilator Tidal Volume 420 Setting Ventilator Tidal Volume 420 Setting Ventilator Tidal Volume 420 Setting Ventilator Tidal Volume 420 Setting Ventilator Tidal Volume 420 Setting Ventilator Respiratory Rate 22 Setting Ventilator Respiratory Rate 22 Setting Ventilator Respiratory Rate 22 Setting Ventilator Respiratory Rate 22 Setting Ventilator Respiratory Rate 22 Setting Ventilator Respiratory Rate 22 Setting Ventilator Respiratory Rate 22 Setting Ventilator Respiratory Rate 22 Setting Ventilator Respiratory Rate 22 Setting Ventilator Respiratory Rate 22 Setting Ventilator Respiratory Rate 22 Setting Actual Respiratory Rate 22 Actual Respiratory Rate 22 Actual Respiratory Rate 22 Actual Respiratory Rate 22 Actual Respiratory Rate 22 Actual Respiratory Rate 22 Actual Respiratory Rate 30 Positive End Expiratory 8 Pressure Positive End Expiratory 8 Pressure Positive End Expiratory 8 Pressure Positive End Expiratory 8 Pressure Positive End Expiratory 8 Pressure Positive End Expiratory 8 Pressure Positive End Expiratory 8 Pressure Positive End Expiratory 8 Pressure Positive End Expiratory 8 Pressure Positive End Expiratory 8 Pressure Positive End Expiratory 8 Pressure Peak Inspiratory Airway 23 Pressure Peak Inspiratory Airway 24 Pressure Peak Inspiratory Airway 24 Pressure Peak Inspiratory Airway 23 Pressure Peak Inspiratory Airway 21 Pressure Peak Inspiratory Airway 24 Pressure Peak Inspiratory Airway 16 Pressure Results - Laboratory Findings CBC and BMP: 01/26/17 09:30 01/26/17 09:30 ABG ABG pH 7.31 pH Units (7.32-7.45) L 01/26/17 05:30 ABG pCO2 36 mmHg (35-45) 01/26/17 05:30 ABG pO2 69 mmHg (85-104) L 01/26/17 05:30 ABG O2 Saturation 92 % (95-98) L 01/26/17 05:30 Abnormal lab findings: Abnormal lab results WBC 13.4 K/mcL (4.3-11.1) H 01/26/17 09:30 RBC 3.79 M/mcL (3.82-4.97) L 01/26/17 09:30 Hgb 10.2 g/dL (11.5-15.4) L 01/26/17 09:30 Hct 31.9 % (35.3-44.9) L 01/26/17 09:30 MCH 26.9 pg (28.0-33.3) L 01/26/17 09:30 RDW 16.1 % (11.5-14.5) H 01/26/17 09:30 Neutrophils # 12.6 K/mcL (1.6-8.9) H 01/26/17 09:30 Lymphocytes # 0.3 K/mcL (0.6-4.6) L 01/26/17 09:30 ABG pH 7.31 pH Units (7.32-7.45) L 01/26/17 05:30 ABG pO2 69 mmHg (85-104) L 01/26/17 05:30 ABG HCO3 18 mEq/L (21-27) L 01/26/17 05:30 ABG Total CO2 19 mEq/L (20-26) L 01/26/17 05:30 ABG O2 Saturation 92 % (95-98) L 01/26/17 05:30 ABG Base Excess -7 mEq/L (-2 to 3) L 01/26/17 05:30 VBG pH 7.20 pH Units (7.32-7.42) L* 01/26/17 06:40 VBG pO2 123 mmHg (25-50) H 01/25/17 04:42 Carbon Dioxide 18 mEq/L (19-29) L 01/26/17 09:30 BUN 64 mg/dL (7-20) H D 01/26/17 09:30 Creatinine 3.78 mg/dL (0.57-1.11) H 01/26/17 09:30 Est GFR ( Amer) 14 (> 60) L 01/26/17 09:30 Est GFR (Non-Af Amer) 12 (> 60) L 01/26/17 09:30 Glucose 196 mg/dL (70-99) H 01/26/17 09:30 POC Glucose 262 (58-89) H 01/26/17 17:49 Calculated Osmolality 314 (280-300) H 01/26/17 09:30 Phosphorus 5.0 mg/dL (2.3-4.7) H 01/26/17 09:30 B-Natriuretic Peptide 2038 pg/mL (0-100) H 01/24/17 08:23 - Microbiology Findings Microbiology Findings: Microbiology, Last 48 Hours 01/25/17 09:00 Sputum Culture - Preliminary Sputum - Clinical Findings Intake & Output: Intake & Output 01/26/17 01/26/17 01/26/17 07:59 15:59 23:59 Intake Total 100 / 100 617 / 617 641 / 641 Output Total 100 / 100 125 / 125 225 / 225 Balance 0 / 0 492 / 492 416 / 416 Weight 93.01 kg - Attending Attestation I saw the patient with the resident agree with History and Physical exam findings. Labs and Radiology were reviewed Ventilator data were reviewed adjusted tidal volume and RR INTERNET DESIGNER: Patient is conscious following commands intubated and on sedation NECK : No JVD appreciated Pulmonary : Patient has acute on chronic hypoxic respiratory failure complicated by COPD Vs CHF exacerbation complicated by pneumonia with pleural effusion cannot achieve adequate diuresis will attempt thoracentesis tomorrow to improve lung mechanics Cardiac : Hemodynamically stable Acute on Chronic systolic dysfunction to hold off diuresis due to worsening kidney injury . Nutrition/GI: PPI prophylaxis Renal : TARAH on Chronic kidney injury diuresis worsened the kidney function will hold off diuresis . Nephrology consulted will try fluid challenge Heme onc : All Labs reviewed Hand H stable . Appreciate oncology consult for prognostication overall poor prognosis ID : To follow cultures to continue broad spectrum antibiotics Disposition : Remains critically ill Code status: Full Code , Palliative consulted to discuss about future goals of care . Spent 35 minutes of critical care time in medical decision making to prevent further vital organs decline and support vital organ function .
--- NOTE | 2017-01-26 14:40 | Oncology Inp Consult Note ---
Date of Encounter: 01/26/17 Time of Encounter: 12:00 Assessment and Plan (1) Lung cancer Status: Chronic Assessment and plan: Metastatic squamous cell carcinoma, currently on nivolumab with stable disease in imaging, continuation of treatment planned as patient did not have much of side effects and stable disease. Respiratory distress, history of COPD, chronic kidney disease cirrhotic liver in imaging studies, other comorbidities reviewed overall prognosis remains poor. Patient appears to be intubated awake but not able to communicate much to discuss this further. We will revisit the issue at a later date. Patient is planned extubation later today. Palliative care input/consult appreciated. Discussed with ICU staff/attending Qualifiers: Laterality: unspecified laterality Lung location: unspecified part of lung Qualified Code(s): C34.90 - Malignant neoplasm of unspecified part of unspecified bronchus or lung - Data of Consult Requesting Physician: Theo Guzmán Primary Care Provider: Linus Ritchie MD - Consult Narrative Reason for consult: Squamous cell carcinoma History of present illness: Ms. Piña is a 76 year old female medical history significant for COPD oxygen dependence, squamous cell carcinoma of the lung, history of chronic kidney disease not on dialysis, underwent CT imaging in November 2014 that showed a 3.4 cm left upper lung mass mediastinal lymphadenopathy patient underwent a bronchoscopy and biopsy that showed a squamous cell carcinoma. Patient underwent treatment with carboplatin and Taxol by Dr Melendez, , follow-up exam showed multiple new right pulmonary nodules a partial left lung collapse and hilar mass concerning for metastatic spread of cancer, patient started Cycle one in August 2015 she has had stable disease since then. She also has cirrhosis in CT scan abdomen and pelvis, recently hospitalized with worsening shortness of breath and is intubated oncology consulted to address CODE STATUS and prognosis Past Med Surg Social Fam HX - Past Medical History Medical history: cancer, CHF, COPD, coronary artery disease, diabetes, hypertension, myocardial infarction, renal disease Psychiatric history: no psych history - Past Surgical History Surgical History: angioplasty/stent, other (Tubal ligation) - Social History Smoking Status: Former smoker Smokeless Tobacco Status: No Alcohol use: none Drug use: none - Family History Brother Family Member Ethnicity: Non- Living Status: Hx Family Cardiac Disorders: Yes ([place]) Mother Family Member Ethnicity: Non- Living Status: Father Family Member Ethnicity: Non- Living Status: Hx Family Cardiac Disorders: Yes (Aneurysm) Sister Family Member Ethnicity: Non- Hx Family Cancer: Yes (breast cancer) Medications and Allergies Clopidogrel [Plavix] 75 mg PO DAILY 05/15/15 [History] Aspirin Enteric Coated [Aspirin EC] 81 mg PO DAILY 07/17/15 [History] Ergocalciferol (VITAMIN D2) [Vitamin D2] 2,000 unit PO DAILY 07/17/15 [History] Isosorbide MONOnitrate (24 HR) [Imdur] 30 mg PO DAILY 06/08/16 [History] Diltiazem CD (24hr) [Cardizem CD] 120 mg PO DAILY 08/22/16 [History] Oxygen 2 l .ROUTE AD 08/22/16 [History] Levothyroxine [Synthroid] 75 mcg PO DAILY #30 tablet 01/20/17 [Rx] Albuterol Sulfate [Albuterol Inhaler] 1 - 2 puff IH Q6HR 01/24/17 [History] Tiotropium [Spiriva] 18 mcg IH DAILY 01/24/17 [History] Umeclidinium [place] [Incruse Ellipta] 62.5 mcg IH DAILY 01/24/17 [History] 3 Allergy/AdvReac Type Severity Reaction Status Date / Time No Known Allergies Allergy Verified 01/20/17 15:47 ROS unobtainable: due to endotracheal tube, due to mental status Oncology - Exam - Constitutional Vitals: Temp Pulse Resp BP Pulse Ox 98.1 F 85 23 110/70 96 01/26/17 12:39 01/26/17 13:24 01/26/17 13:39 01/26/17 13:39 01/26/17 13:39 General appearance: mild distress - Head Head exam: Present: atraumatic, normal inspection - Eye Eye exam: Present: sclera anicteric - ENT Additional comments: intubated, min distress, awake - Respiratory Respiratory exam: Present: CTAB - Cardiovascular Cardiovascular exam: Present: +S1, +S2 - GI/Abdominal GI/Abdominal exam: Present: normal bowel sounds, soft - Extremities Exam Extremities exam: Present: normal inspection - Neurological Exam Neurological exam: Present: alert, altered, CN II-XII intact, oriented X3 Oncology - Results Labs: Short CBC 01/26/17 Range/Units 09:30 WBC 13.4 H (4.3-11.1) K/mcL Hgb 10.2 L (11.5-15.4) g/dL Hct 31.9 L (35.3-44.9) % Plt Count 164 (140-400) K/mcL Neutrophils # 12.6 H (1.6-8.9) K/mcL BMP 01/26/17 09:30 Sodium 140 Potassium 4.2 Chloride 109 Carbon Dioxide 18 L BUN 64 H D Creatinine 3.78 H Glucose 196 H Calcium 8.7 Consult Discharge Plan - Plan Referrals: Linus Ritchie MD [Primary Care Provider] -
[2017-01-26] MEDS: FentaNYL (PF) 1,000 MCG in 0.9 % Sodium Chloride 80 ML IVC SCH (16:45)
[2017-01-26] MEDS ORDERED: Ondansetron 4 MG/2 ML VIAL ONE (17:41)
[2017-01-26] MEDS: Piperacillin/Tazobactam 3.375 GM/200 ML BAG IVPB SCH (17:46)
[2017-01-26] MEDS: Ondansetron 4 MG/2 ML VIAL IVP PRN (17:50)
[2017-01-27] MEDS: Ipratropium/Albuterol Neb 3 ML IH SCH ×6 (00:36→19:49)
[2017-01-27] MEDS: Insulin LISPRO 300 UNITS/3 ML VIAL SQ SCH ×4 (00:52→18:36)
[2017-01-27] MEDS: Dexmedetomidine HCl 400 MCG/100 ML MLS IVC SCH ×2 (01:22→07:56)
[2017-01-27 04:13] LABS: ABG Base Excess -6 mEq/L (-2 to 3); ABG HCO3 20 mEq/L (21-27); ABG Oxygen Saturation 96 % (95-98); ABG PCO2 36 mmHg (35-45); ABG PH 7.35 pH Units (7.32-7.45); ABG PO2 88 mmHg (85-104); ABG TCO2 21 mEq/L (20-26); Blood Gas Modality VC; Blood Gas PEEP 8 cm H2O; Blood Gas Respiration Rate 22; Blood Gas VT 420 cc
[2017-01-27] MEDS: Lacri-Lube 3.5 GM TUBE BOTH EYES SCH ×5 (04:28→19:15)
[2017-01-27 04:32] LABS: Hematocrit 30.5 % (35.3-44.9); Hemoglobin 9.4 g/dL (11.5-15.4); Immature Granulocytes % 0.9 % (0-4); Lymphocytes # 0.2 K/mcL (0.6-4.6); Lymphocytes % 2.6 %; Mean Corpuscular HGB Conc 30.8 g/dL (31.6-35.5); Mean Corpuscular Volume 84.5 fL (83.0-100.0); Mean Platelet Volume 10.9 fL (9.4-12.4); Monocytes # 0.2 K/mcL (0.0-1.3); Monocytes % 2.6 %; Neutrophils # 6.2 K/mcL (1.6-8.9); Platelet Count 142 K/mcL (140-400); Red Blood Count 3.61 M/mcL (3.82-4.97); Red Cell Distribution Width 16.1 % (11.5-14.5); Segmented Neutrophils % 93.9 %
[2017-01-27 04:36] LABS: VBG HCO3 21 mEq/L (21-27); VBG Ionized Calcium 1.25 mmol/L (1.15-1.35); VBG PCO2 47 mmHg (41-51); VBG PH 7.26 pH Units (7.32-7.42); VBG PO2 92 mmHg (25-50)
[2017-01-27 04:47] LABS: Calcium 8.7 mg/dL (8.6-10.8); Potassium 3.9 mEq/L (3.5-4.5)
[2017-01-27] MEDS: Piperacillin/Tazobactam 3.375 GM/200 ML BAG IVPB SCH ×2 (04:58→18:31)
[2017-01-27] MEDS: *HR* Heparin 5,000 UNIT/ML VIAL SQ SCH ×2 (04:59→18:31)
[2017-01-27 05:44] LABS: Platelet Estimate Normal (Normal)
[2017-01-27] MEDS: Aspirin 81 MG TAB.CHEW PO SCH (08:04)
[2017-01-27] MEDS: MethylPREDNISolone 40 MG/ML VIAL IVP SCH ×2 (08:04→16:06)
[2017-01-27] MEDS: Pantoprazole 40 MG VIAL IVP SCH (08:04)
[2017-01-27] MEDS: Chlorhexidine Rinse 15 ML MOUTHWASH MM SCH ×2 (08:04→19:29)
[2017-01-27] MEDS: Budesonide/Formoterol 160/4.5 MDI IH SCH ×2 (08:11→19:49)
--- NOTE | 2017-01-27 08:23 | Pulmonology Progress Note ---
Date of Encounter: 01/27/17 Time of Encounter: 07:50 Assessment and Plan (1) Acute and chronic respiratory failure with hypoxia Current Visit: No Status: Acute - With reported desaturation to the mid 80s upon EMS arrival. - Likely multifactorial including AE COPD, CHF, possible pneumonia in the setting of lung cancer. - Currently intubated and continue mechanical ventilation support. - Steroid, Symbicort, bronchodilators for AE COPD. - Consider more diuresis for CHF. - IV vancomycin and Zosyn for possible pneumonia. - Continue close monitoring in ICU. (2) Acute exacerbation of chronic obstructive pulmonary disease (COPD) Current Visit: No Status: Acute - Continue Solu-medrol and start Symbicort and bronchodilators. (3) CHF (congestive heart failure) Current Visit: No Status: Chronic - Echo on 08/23/16 showed LVEF 40% with mild diastolic dysfunction. - BNP 2037 in ED. - Patient received 80 mg IV Lasix so far. - Hold Lasix for now given borderline hypotension but will likely resume once blood pressure becomes more stable. Qualifiers: Congestive heart failure type: systolic Congestive heart failure chronicity : unspecified congestive heart failure chronicity Qualified Code(s): I50.20 - Unspecified systolic (congestive) heart failure (4) Pneumonia Current Visit: Yes Status: Suspected - CXR found patchy airspace opacification within the right lower lobe, suspicious for pneumonia. - Blood culture pending. - Start IV vancomycin and Zosyn for broad spectrum coverage. Further de- escalation based on clinical course and culture result. Qualifiers: Pneumonia type: due to unspecified organism Laterality: right Lung location: lower lobe of lung Qualified Code(s): J18.1 - Lobar pneumonia, unspecified organism (5) Squamous cell lung cancer Current Visit: No Status: Chronic - On immunotherapy per patient's oncologist Dr. eVla's note. - May consider oncology consult. Qualifiers: Laterality: left Qualified Code(s): C34.92 - Malignant neoplasm of unspecified part of left bronchus or lung (6) Type 2 diabetes mellitus Current Visit: No Status: Chronic - Insulin sliding scale with frequent glucose monitoring. 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 GI prophylaxis: Start IV PPI. Subjective Principal diagnosis: Acute and chronic respiratory failure with hypoxia Objective PUL Vital signs: Last Vital Signs Temp 97.4 F L 01/27/17 07:46 Pulse 96 01/27/17 06:00 Resp 27 01/27/17 08:14 BP 94/58 01/27/17 08:14 Pulse Ox 94 01/27/17 08:14 Ventilator Settings Ventilator Settings: Ventilator Settings, Last 8 Hours Ventilator Mode VC+ Ventilator Mode VC+ Ventilator Mode VC+ Ventilator Mode VC+ Ventilator Mode VC+ Ventilator Mode VC+ Ventilator Mode VC+ Ventilator Mode VC+ Ventilator Mode VC+ Ventilator Mode VC+ Ventilator Mode VC+ Ventilator Mode VC+ Ventilator Tidal Volume 420 Setting Ventilator Tidal Volume 420 Setting Ventilator Tidal Volume 420 Setting Ventilator Tidal Volume 420 Setting Ventilator Tidal Volume 420 Setting Ventilator Tidal Volume 420 Setting Ventilator Tidal Volume 420 Setting Ventilator Tidal Volume 420 Setting Ventilator Tidal Volume 420 Setting Ventilator Tidal Volume 420 Setting Ventilator Tidal Volume 420 Setting Ventilator Tidal Volume 420 Setting Ventilator Respiratory Rate 22 Setting Ventilator Respiratory Rate 22 Setting Ventilator Respiratory Rate 22 Setting Ventilator Respiratory Rate 22 Setting Ventilator Respiratory Rate 22 Setting Ventilator Respiratory Rate 22 Setting Ventilator Respiratory Rate 22 Setting Ventilator Respiratory Rate 22 Setting Ventilator Respiratory Rate 22 Setting Ventilator Respiratory Rate 22 Setting Ventilator Respiratory Rate 22 Setting Ventilator Respiratory Rate 22 Setting Actual Respiratory Rate 22 Actual Respiratory Rate 22 Actual Respiratory Rate 22 Actual Respiratory Rate 22 Actual Respiratory Rate 24 Positive End Expiratory 8 Pressure Positive End Expiratory 8 Pressure Positive End Expiratory 8 Pressure Positive End Expiratory 8 Pressure Positive End Expiratory 8 Pressure Positive End Expiratory 8 Pressure Positive End Expiratory 8 Pressure Positive End Expiratory 8 Pressure Positive End Expiratory 8 Pressure Positive End Expiratory 8 Pressure Positive End Expiratory 8 Pressure Positive End Expiratory 8 Pressure Peak Inspiratory Airway 23 Pressure Peak Inspiratory Airway 23 Pressure Peak Inspiratory Airway 23 Pressure Peak Inspiratory Airway 23 Pressure Peak Inspiratory Airway 24 Pressure Results - Laboratory Findings CBC and BMP: 01/27/17 04:03 01/27/17 04:03 ABG ABG pH 7.35 pH Units (7.32-7.45) 01/27/17 04:05 ABG pCO2 36 mmHg (35-45) 01/27/17 04:05 ABG pO2 88 mmHg (85-104) 01/27/17 04:05 ABG O2 Saturation 96 % (95-98) 01/27/17 04:05 Abnormal lab findings: Abnormal lab results RBC 3.61 M/mcL (3.82-4.97) L 01/27/17 04:03 Hgb 9.4 g/dL (11.5-15.4) L 01/27/17 04:03 Hct 30.5 % (35.3-44.9) L 01/27/17 04:03 MCH 26.0 pg (28.0-33.3) L 01/27/17 04:03 MCHC 30.8 g/dL (31.6-35.5) L 01/27/17 04:03 RDW 16.1 % (11.5-14.5) H 01/27/17 04:03 Lymphocytes # 0.2 K/mcL (0.6-4.6) L 01/27/17 04:03 ABG HCO3 20 mEq/L (21-27) L 01/27/17 04:05 ABG Base Excess -6 mEq/L (-2 to 3) L 01/27/17 04:05 VBG pH 7.26 pH Units (7.32-7.42) L 01/27/17 04:32 VBG pO2 92 mmHg (25-50) H 01/27/17 04:32 Chloride 111 mEq/L (98-109) H 01/27/17 04:03 Carbon Dioxide 18 mEq/L (19-29) L 01/27/17 04:03 BUN 71 mg/dL (7-20) H 01/27/17 04:03 Creatinine 3.11 mg/dL (0.57-1.11) H 01/27/17 04:03 Est GFR ( Amer) 18 (> 60) L 01/27/17 04:03 Est GFR (Non-Af Amer) 14 (> 60) L 01/27/17 04:03 Glucose 233 mg/dL (70-99) H 01/27/17 04:03 POC Glucose 215 (58-89) H 01/26/17 23:27 Calculated Osmolality 318 (280-300) H 01/27/17 04:03 Phosphorus 5.0 mg/dL (2.3-4.7) H 01/26/17 09:30 B-Natriuretic Peptide 2038 pg/mL (0-100) H 01/24/17 08:23 - Microbiology Findings Microbiology Findings: Microbiology, Last 48 Hours 01/25/17 09:00 Sputum Culture - Preliminary Sputum - Clinical Findings Intake & Output: Intake & Output 01/26/17 01/27/17 01/27/17 23:59 07:59 15:59 Intake Total 841 / 841 541 / 541 Output Total 225 / 225 500 / 500 Balance 616 / 616 41 / 41 Weight 92.9 kg Consult Discharge Plan - Plan Referrals: Linus Ritchie MD [Primary Care Provider] -
[2017-01-27] MEDS: FentaNYL (PF) 1,000 MCG in 0.9 % Sodium Chloride 80 ML IVC SCH (08:42)
--- NOTE | 2017-01-27 09:29 | Palliative Progress Note ---
<Nicholas Daley - Last Filed: 01/27/17 11:27> Date of Encounter: 01/27/17 Time of Encounter: 09:27 - Assessment and plan (1) Goals of care, counseling/discussion Current Visit: Yes Status: Acute Assessment and plan: - Discussion with patient and family on 01/25 regarding goals of care - Pt remains full code and desires to continue chemotherapy treatment. - She remains alert and oriented and appears able to make her own decisions. - Would likely meet criteria for hospice if pt changes her mind about wanting further treatments. (2) Acute hypoxemic respiratory failure Current Visit: Yes Status: Acute Assessment and plan: - Remains intubated. Possible extubation this afternoon per primary team - Secondary to CHF, COPD, lung cancer, PNA (3) TARAH (acute kidney injury) Current Visit: Yes Status: Acute Assessment and plan: TARAH on stage IV CKD - Mild improved kidney function this AM. Urine output improved as well. - Further management per primary team (4) SCCA (small cell carcinoma of lung) Current Visit: Yes Status: Chronic Assessment and plan: - Still receives chemotherapy from [facility] - Onc consulted yesterday. - pt remains full code and plans to continue treatment as outpatient. - Poor prognosis per oncology. Qualifiers: Laterality: unspecified laterality Qualified Code(s): C34.90 - Malignant neoplasm of unspecified part of unspecified bronchus or lung - Time Spent With Patient Total time spent is greater than 50% in coordination of care (as documented) at patient's floor/unit and/or counseling patient: less than 15 minutes - Subjective Interval history: Ms. Piña was seen and examined at bedside this morning. She is intubated during time of interview but is able to communicate via yes and no questions and mouthing some short phrases. She is awake and alert this AM. No complaints of n/v, pain at this time. States she feels about the same as yesterday. No questions at this time. Family present at bedside of and brother. Updated on patient's progress. Explained some clinical improvement however prognosis remains poor. - Constitutional Vitals: Abnormal lab results RBC 3.61 M/mcL (3.82-4.97) L 01/27/17 04:03 Hgb 9.4 g/dL (11.5-15.4) L 01/27/17 04:03 Hct 30.5 % (35.3-44.9) L 01/27/17 04:03 MCH 26.0 pg (28.0-33.3) L 01/27/17 04:03 MCHC 30.8 g/dL (31.6-35.5) L 01/27/17 04:03 RDW 16.1 % (11.5-14.5) H 01/27/17 04:03 Lymphocytes # 0.2 K/mcL (0.6-4.6) L 01/27/17 04:03 ABG HCO3 20 mEq/L (21-27) L 01/27/17 04:05 ABG Base Excess -6 mEq/L (-2 to 3) L 01/27/17 04:05 VBG pH 7.26 pH Units (7.32-7.42) L 01/27/17 04:32 VBG pO2 92 mmHg (25-50) H 01/27/17 04:32 Chloride 111 mEq/L (98-109) H 01/27/17 04:03 Carbon Dioxide 18 mEq/L (19-29) L 01/27/17 04:03 BUN 71 mg/dL (7-20) H 01/27/17 04:03 Creatinine 3.11 mg/dL (0.57-1.11) H 01/27/17 04:03 Est GFR ( Amer) 18 (> 60) L 01/27/17 04:03 Est GFR (Non-Af Amer) 14 (> 60) L 01/27/17 04:03 Glucose 233 mg/dL (70-99) H 01/27/17 04:03 POC Glucose 215 (58-89) H 01/26/17 23:27 Calculated Osmolality 318 (280-300) H 01/27/17 04:03 Phosphorus 5.0 mg/dL (2.3-4.7) H 01/26/17 09:30 B-Natriuretic Peptide 2038 pg/mL (0-100) H 01/24/17 08:23 General appearance: Present: cooperative, no acute distress, obese - Respiratory Respiratory exam: Present: decreased breath sounds. Absent: respiratory distress - Cardiovascular Cardiovascular exam: Present: RRR, +S1, +S2 Palliative Quality Palliative Quality: Screen for Code Status: Yes, Screen for Goals of Care: Yes, Screen for Pain: Yes, If Pain Regimen Started, Initiate Bowel Regimen: NA, Screen for Nausea/Vomitting: Yes Code Status: 01/24/17 18:02 CODE [Resuscitation Status: Active] [RES] Routine Comment: Resuscitation Status: Full Code - Labs CBC & Chem 7: 01/27/17 04:03 01/27/17 04:03 Labs: Laboratory Results - last 24 hr 01/26/17 01/26/17 01/26/17 09:25 09:30 09:30 WBC 13.4 H RBC 3.79 L Hgb 10.2 L Hct 31.9 L MCV 84.2 MCH 26.9 L MCHC 32.0 RDW 16.1 H Plt Count 164 MPV 10.7 Immature Gran % 0.7 Seg Neutrophils % 94.1 Lymphocytes % 2.2 Monocytes % 2.9 Eosinophils % 0.0 Basophils % 0.1 Neutrophils # 12.6 H Lymphocytes # 0.3 L Monocytes # 0.4 Eosinophils # 0.0 Basophils # 0.0 Platelet Estimate Sample Site ABG pH ABG pCO2 ABG pO2 ABG HCO3 ABG Total CO2 ABG O2 Saturation ABG Base Excess VBG pH VBG pCO2 VBG pO2 VBG HCO3 Respiration Rate O2 Delivery Device Blood Gas Modality Inspired O2 Tidal Volume PEEP Sodium 140 Potassium 4.2 Chloride 109 Carbon Dioxide 18 L BUN 64 H D Creatinine 3.78 H Est GFR ( Amer) 14 L Est GFR (Non-Af Amer) 12 L BUN/Creatinine Ratio 17 Glucose 196 H POC Glucose Calculated Osmolality 314 H Calcium 8.7 Venous Ioniz Calcium Phosphorus 5.0 H Magnesium 2.0 Urine Creatinine 124 Urine Sodium < 20.0 Urine Urea Nitrogen 704 01/26/17 01/26/17 01/26/17 11:53 17:49 23:27 WBC RBC Hgb Hct MCV MCH MCHC RDW Plt Count MPV Immature Gran % Seg Neutrophils % Lymphocytes % Monocytes % Eosinophils % Basophils % Neutrophils # Lymphocytes # Monocytes # Eosinophils # Basophils # Platelet Estimate Sample Site ABG pH ABG pCO2 ABG pO2 ABG HCO3 ABG Total CO2 ABG O2 Saturation ABG Base Excess VBG pH VBG pCO2 VBG pO2 VBG HCO3 Respiration Rate O2 Delivery Device Blood Gas Modality Inspired O2 Tidal Volume PEEP Sodium Potassium Chloride Carbon Dioxide BUN Creatinine Est GFR ( Amer) Est GFR (Non-Af Amer) BUN/Creatinine Ratio Glucose POC Glucose 210 H 262 H 215 H Calculated Osmolality Calcium Venous Ioniz Calcium Phosphorus Magnesium Urine Creatinine Urine Sodium Urine Urea Nitrogen 01/27/17 01/27/17 01/27/17 04:03 04:03 04:05 WBC 6.6 D RBC 3.61 L Hgb 9.4 L Hct 30.5 L MCV 84.5 MCH 26.0 L MCHC 30.8 L RDW 16.1 H Plt Count 142 MPV 10.9 Immature Gran % 0.9 Seg Neutrophils % 93.9 Lymphocytes % 2.6 Monocytes % 2.6 Eosinophils % 0.0 Basophils % 0.0 Neutrophils # 6.2 Lymphocytes # 0.2 L Monocytes # 0.2 Eosinophils # 0.0 Basophils # 0.0 Platelet Estimate Normal Sample Site R Radial ABG pH 7.35 ABG pCO2 36 ABG pO2 88 ABG HCO3 20 L ABG Total CO2 21 ABG O2 Saturation 96 ABG Base Excess -6 L VBG pH VBG pCO2 VBG pO2 VBG HCO3 Respiration Rate 22 O2 Delivery Device Adult Vent Blood Gas Modality VC Inspired O2 40.0 Tidal Volume 420 PEEP 8 Sodium 140 Potassium 3.9 Chloride 111 H Carbon Dioxide 18 L BUN 71 H Creatinine 3.11 H Est GFR ( Amer) 18 L Est GFR (Non-Af Amer) 14 L BUN/Creatinine Ratio 23 Glucose 233 H POC Glucose Calculated Osmolality 318 H Calcium 8.7 Venous Ioniz Calcium Phosphorus Magnesium Urine Creatinine Urine Sodium Urine Urea Nitrogen 01/27/17 04:32 WBC RBC Hgb Hct MCV MCH MCHC RDW Plt Count MPV Immature Gran % Seg Neutrophils % Lymphocytes % Monocytes % Eosinophils % Basophils % Neutrophils # Lymphocytes # Monocytes # Eosinophils # Basophils # Platelet Estimate Sample Site ABG pH ABG pCO2 ABG pO2 ABG HCO3 ABG Total CO2 ABG O2 Saturation ABG Base Excess VBG pH 7.26 L VBG pCO2 47 VBG pO2 92 H VBG HCO3 21 Respiration Rate O2 Delivery Device Blood Gas Modality Inspired O2 Tidal Volume PEEP Sodium Potassium Chloride Carbon Dioxide BUN Creatinine Est GFR ( Amer) Est GFR (Non-Af Amer) BUN/Creatinine Ratio Glucose POC Glucose Calculated Osmolality Calcium Venous Ioniz Calcium 1.25 Phosphorus Magnesium Urine Creatinine Urine Sodium Urine Urea Nitrogen - ABG Interpretation ABG results: ABG ABG pH 7.35 pH Units (7.32-7.45) 01/27/17 04:05 ABG pCO2 36 mmHg (35-45) 01/27/17 04:05 ABG pO2 88 mmHg (85-104) 01/27/17 04:05 ABG O2 Saturation 96 % (95-98) 01/27/17 04:05 Consult Discharge Plan - Plan Referrals: Linus Ritchie MD [Primary Care Provider] - <Edvin Larios L - Last Filed: 01/27/17 13:08> Date of Encounter: 01/27/17 - Time Spent With Patient Total time spent is greater than 50% in coordination of care (as documented) at patient's floor/unit and/or counseling patient: - Constitutional Vitals: Abnormal lab results RBC 3.61 M/mcL (3.82-4.97) L 01/27/17 04:03 Hgb 9.4 g/dL (11.5-15.4) L 01/27/17 04:03 Hct 30.5 % (35.3-44.9) L 01/27/17 04:03 MCH 26.0 pg (28.0-33.3) L 01/27/17 04:03 MCHC 30.8 g/dL (31.6-35.5) L 01/27/17 04:03 RDW 16.1 % (11.5-14.5) H 01/27/17 04:03 Lymphocytes # 0.2 K/mcL (0.6-4.6) L 01/27/17 04:03 ABG pO2 113 mmHg (85-104) H 01/27/17 12:42 ABG HCO3 19 mEq/L (21-27) L 01/27/17 12:42 ABG Base Excess -6 mEq/L (-2 to 3) L 01/27/17 12:42 VBG pH 7.26 pH Units (7.32-7.42) L 01/27/17 04:32 VBG pO2 92 mmHg (25-50) H 01/27/17 04:32 Chloride 111 mEq/L (98-109) H 01/27/17 04:03 Carbon Dioxide 18 mEq/L (19-29) L 01/27/17 04:03 BUN 71 mg/dL (7-20) H 01/27/17 04:03 Creatinine 3.11 mg/dL (0.57-1.11) H 01/27/17 04:03 Est GFR ( Amer) 18 (> 60) L 01/27/17 04:03 Est GFR (Non-Af Amer) 14 (> 60) L 01/27/17 04:03 Glucose 233 mg/dL (70-99) H 01/27/17 04:03 POC Glucose 153 (58-89) H 01/27/17 11:34 Calculated Osmolality 318 (280-300) H 01/27/17 04:03 Phosphorus 5.0 mg/dL (2.3-4.7) H 01/26/17 09:30 B-Natriuretic Peptide 2038 pg/mL (0-100) H 01/24/17 08:23 - Attending Attestation I examined this patient and my medical decision-making was reviewed with the Resident Physician. I agree with the documented findings, disposition and treatment plan as described except to the extent set forth below. Palliative Quality Code Status: 01/24/17 18:02 CODE [Resuscitation Status: Active] [RES] Routine Comment: Resuscitation Status: Full Code - Labs CBC & Chem 7: 01/27/17 04:03 01/27/17 04:03 Labs: Laboratory Results - last 24 hr 01/26/17 01/26/17 01/27/17 17:49 23:27 04:03 WBC 6.6 D RBC 3.61 L Hgb 9.4 L Hct 30.5 L MCV 84.5 MCH 26.0 L MCHC 30.8 L RDW 16.1 H Plt Count 142 MPV 10.9 Immature Gran % 0.9 Seg Neutrophils % 93.9 Lymphocytes % 2.6 Monocytes % 2.6 Eosinophils % 0.0 Basophils % 0.0 Neutrophils # 6.2 Lymphocytes # 0.2 L Monocytes # 0.2 Eosinophils # 0.0 Basophils # 0.0 Platelet Estimate Normal Sample Site ABG pH ABG pCO2 ABG pO2 ABG HCO3 ABG Total CO2 ABG O2 Saturation ABG Base Excess VBG pH VBG pCO2 VBG pO2 VBG HCO3 Respiration Rate O2 Delivery Device Blood Gas Modality Inspired O2 Tidal Volume PEEP Sodium Potassium Chloride Carbon Dioxide BUN Creatinine Est GFR ( Amer) Est GFR (Non-Af Amer) BUN/Creatinine Ratio Glucose POC Glucose 262 H 215 H Calculated Osmolality Calcium Venous Ioniz Calcium 01/27/17 01/27/1717 04:03 04:05 04:32 WBC RBC Hgb Hct MCV MCH MCHC RDW Plt Count MPV Immature Gran % Seg Neutrophils % Lymphocytes % Monocytes % Eosinophils % Basophils % Neutrophils # Lymphocytes # Monocytes # Eosinophils # Basophils # Platelet Estimate Sample Site R Radial ABG pH 7.35 ABG pCO2 36 ABG pO2 88 ABG HCO3 20 L ABG Total CO2 21 ABG O2 Saturation 96 ABG Base Excess -6 L VBG pH 7.26 L VBG pCO2 47 VBG pO2 92 H VBG HCO3 21 Respiration Rate 22 O2 Delivery Device Adult Vent Blood Gas Modality VC Inspired O2 40.0 Tidal Volume 420 PEEP 8 Sodium 140 Potassium 3.9 Chloride 111 H Carbon Dioxide 18 L BUN 71 H Creatinine 3.11 H Est GFR ( Amer) 18 L Est GFR (Non-Af Amer) 14 L BUN/Creatinine Ratio 23 Glucose 233 H POC Glucose Calculated Osmolality 318 H Calcium 8.7 Venous Ioniz Calcium 1.25 01/27/17 01/27/17 11:34 12:42 WBC RBC Hgb Hct MCV MCH MCHC RDW Plt Count MPV Immature Gran % Seg Neutrophils % Lymphocytes % Monocytes % Eosinophils % Basophils % Neutrophils # Lymphocytes # Monocytes # Eosinophils # Basophils # Platelet Estimate Sample Site ABG pH 7.33 ABG pCO2 36 ABG pO2 113 H ABG HCO3 19 L ABG Total CO2 20 ABG O2 Saturation 98 ABG Base Excess -6 L VBG pH VBG pCO2 VBG pO2 VBG HCO3 Respiration Rate O2 Delivery Device Blood Gas Modality Inspired O2 Tidal Volume PEEP Sodium Potassium Chloride Carbon Dioxide BUN Creatinine Est GFR ( Amer) Est GFR (Non-Af Amer) BUN/Creatinine Ratio Glucose POC Glucose 153 H Calculated Osmolality Calcium Venous Ioniz Calcium - ABG Interpretation ABG results: ABG ABG pH 7.33 pH Units (7.32-7.45) 01/27/17 12:42 ABG pCO2 36 mmHg (35-45) 01/27/17 12:42 ABG pO2 113 mmHg (85-104) H 01/27/17 12:42 ABG O2 Saturation 98 % (95-98) 01/27/17 12:42
--- NOTE | 2017-01-27 09:46 | Pulmonology Progress Note ---
<Benitez Alanis - Last Filed: 01/27/17 13:43> Date of Encounter: 01/27/17 Time of Encounter: 09:44 Assessment and Plan (1) Acute and chronic respiratory failure with hypoxia Current Visit: No Status: Acute Likely multifactorial including acute exacerbation of COPD, CHF, possible pneumonia in the setting of lung cancer. Sputum culture shows no growth to date Steroids, Symbicort, and bronchodilators for COPD exacerbation. Continue close monitoring in ICU. Anticipate extubation today (2) Pneumonia Current Visit: Yes Status: Suspected Chest x-ray on 01/24/2017 shows unchanged large left pleural effusion and bilateral consolidations. Sputum culture preliminarily negative. Blood culture preliminarily negative. Zosyn day 4. Qualifiers: Pneumonia type: due to unspecified organism Laterality: right Lung location: lower lobe of lung Qualified Code(s): J18.1 - Lobar pneumonia, unspecified organism (3) Acute exacerbation of chronic obstructive pulmonary disease (COPD) Current Visit: No Status: Acute Continue Solu-Medrol, Symbicort, and bronchodilators. (4) SCCA (small cell carcinoma of lung) Current Visit: Yes Status: Chronic Metastatic squamous cell carcinoma, currently on [facility] with stable disease in imaging, continuation of outpatient treatment planned as patient did not have much of side effects and stable disease. Respiratory distress, history of COPD, chronic kidney disease cirrhotic liver in imaging studies, other comorbidities reviewed overall prognosis remains poor per oncology. Patient receives chemotherapy . Pt remains full code and desires to continue chemotherapy treatment. Onc consulted Qualifiers: Laterality: unspecified laterality Qualified Code(s): C34.90 - Malignant neoplasm of unspecified part of unspecified bronchus or lung (5) Acute on chronic systolic ACC/AHA stage C congestive heart failure Current Visit: No Status: Acute Echocardiogram done today on 01/25/2017 shows minimal changes from echo performed on 08/23/2016 which shows LVEF of 40% with systolic dysfunction. Lasix held due to acute kidney injury. (6) Acute on chronic renal failure Current Visit: Yes Status: Acute Patient's creatinine improved this morning from yesterday. Discontinue Lasix. Continue to hold Vanc. IV bolus of normal saline Await nephro recommendations Urine creatinine, urea, and sodium FeNa 0.4%, Prerenal due to Hypovolemia, heart failure, renal artery stenosis, vs. sepsis Qualifiers: Acute renal failure type: unspecified Chronic kidney disease stage: stage 4 (severe) Qualified Code(s): N17.9 - Acute kidney failure, unspecified; N18.4 - Chronic kidney disease, stage 4 (severe); N18.4 - Chronic kidney disease , stage 4 (severe); N18.4 - Chronic kidney disease, stage 4 (severe); N18.4 - Chronic kidney disease, stage 4 (severe) (7) Type 2 diabetes mellitus Current Visit: No Status: Chronic Insulin Sliding scale with frequent glucose monitoring. 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 -GI prophylaxis- IV proton pump inhibitor, protonix 40 mg IV daily. Subjective Principal diagnosis: Acute and chronic respiratory failure with hypoxia Interval history: Patient seen and examined. She remains intubated. Patient nods head to yes and no questions. Anticipate extubation today. Palliative care following. Objective PUL Vital signs: Last Vital Signs Temp 97.4 F L 01/27/17 08:00 Pulse 98 01/27/17 08:00 Resp 27 01/27/17 08:14 BP 94/58 01/27/17 08:14 Pulse Ox 94 01/27/17 08:14 General appearance: no acute distress Eyes: nonicteric ENT: oropharynx dry (intubated) Neck: supple, no JVD Effort: normal Auscultation: bilateral: diminished breath sounds Percussion: bilateral: not dull Cardiovascular: regular rate and rhythm Gastrointestinal: normoactive bowel sounds, soft, non-tender Integumentary: normal Extremities: no cyanosis, no clubbing, edema (1+) Musculoskeletal: no deformities non-focal exam (awake, responds to verbal stimuli) Ventilator Settings Ventilator Settings: Ventilator Settings, Last 8 Hours Ventilator Mode VC+ Ventilator Mode VC+ Ventilator Mode VC+ Ventilator Mode VC+ Ventilator Mode VC+ Ventilator Mode VC+ Ventilator Mode VC+ Ventilator Mode VC+ Ventilator Mode VC+ Ventilator Mode VC+ Ventilator Mode VC+ Ventilator Mode VC+ Ventilator Tidal Volume 420 Setting Ventilator Tidal Volume 420 Setting Ventilator Tidal Volume 420 Setting Ventilator Tidal Volume 420 Setting Ventilator Tidal Volume 420 Setting Ventilator Tidal Volume 420 Setting Ventilator Tidal Volume 420 Setting Ventilator Tidal Volume 420 Setting Ventilator Tidal Volume 420 Setting Ventilator Tidal Volume 420 Setting Ventilator Tidal Volume 420 Setting Ventilator Tidal Volume 420 Setting Ventilator Respiratory Rate 22 Setting Ventilator Respiratory Rate 22 Setting Ventilator Respiratory Rate 22 Setting Ventilator Respiratory Rate 22 Setting Ventilator Respiratory Rate 22 Setting Ventilator Respiratory Rate 22 Setting Ventilator Respiratory Rate 22 Setting Ventilator Respiratory Rate 22 Setting Ventilator Respiratory Rate 22 Setting Ventilator Respiratory Rate 22 Setting Ventilator Respiratory Rate 22 Setting Ventilator Respiratory Rate 22 Setting Actual Respiratory Rate 22 Actual Respiratory Rate 22 Actual Respiratory Rate 22 Actual Respiratory Rate 22 Actual Respiratory Rate 22 Actual Respiratory Rate 22 Positive End Expiratory 8 Pressure Positive End Expiratory 8 Pressure Positive End Expiratory 8 Pressure Positive End Expiratory 8 Pressure Positive End Expiratory 8 Pressure Positive End Expiratory 8 Pressure Positive End Expiratory 8 Pressure Positive End Expiratory 8 Pressure Positive End Expiratory 8 Pressure Positive End Expiratory 8 Pressure Positive End Expiratory 8 Pressure Positive End Expiratory 8 Pressure Peak Inspiratory Airway 23 Pressure Peak Inspiratory Airway 23 Pressure Peak Inspiratory Airway 23 Pressure Peak Inspiratory Airway 23 Pressure Peak Inspiratory Airway 23 Pressure Peak Inspiratory Airway 23 Pressure Results - Laboratory Findings CBC and BMP: 01/27/17 04:03 01/27/17 04:03 ABG ABG pH 7.35 pH Units (7.32-7.45) 01/27/17 04:05 ABG pCO2 36 mmHg (35-45) 01/27/17 04:05 ABG pO2 88 mmHg (85-104) 01/27/17 04:05 ABG O2 Saturation 96 % (95-98) 01/27/17 04:05 Abnormal lab findings: Abnormal lab results RBC 3.61 M/mcL (3.82-4.97) L 01/27/17 04:03 Hgb 9.4 g/dL (11.5-15.4) L 01/27/17 04:03 Hct 30.5 % (35.3-44.9) L 01/27/17 04:03 MCH 26.0 pg (28.0-33.3) L 01/27/17 04:03 MCHC 30.8 g/dL (31.6-35.5) L 01/27/17 04:03 RDW 16.1 % (11.5-14.5) H 01/27/17 04:03 Lymphocytes # 0.2 K/mcL (0.6-4.6) L 01/27/17 04:03 ABG HCO3 20 mEq/L (21-27) L 01/27/17 04:05 ABG Base Excess -6 mEq/L (-2 to 3) L 01/27/17 04:05 VBG pH 7.26 pH Units (7.32-7.42) L 01/27/17 04:32 VBG pO2 92 mmHg (25-50) H 01/27/17 04:32 Chloride 111 mEq/L (98-109) H 01/27/17 04:03 Carbon Dioxide 18 mEq/L (19-29) L 01/27/17 04:03 BUN 71 mg/dL (7-20) H 01/27/17 04:03 Creatinine 3.11 mg/dL (0.57-1.11) H 01/27/17 04:03 Est GFR ( Amer) 18 (> 60) L 01/27/17 04:03 Est GFR (Non-Af Amer) 14 (> 60) L 01/27/17 04:03 Glucose 233 mg/dL (70-99) H 01/27/17 04:03 POC Glucose 215 (58-89) H 01/26/17 23:27 Calculated Osmolality 318 (280-300) H 01/27/17 04:03 Phosphorus 5.0 mg/dL (2.3-4.7) H 01/26/17 09:30 B-Natriuretic Peptide 2038 pg/mL (0-100) H 01/24/17 08:23 - Microbiology Findings Microbiology Findings: Microbiology, Last 48 Hours 01/25/17 09:00 Sputum Culture - Preliminary Sputum - Clinical Findings Intake & Output: Intake & Output 01/26/17 01/27/17 01/27/17 23:59 07:59 15:59 Intake Total 841 / 841 541 / 541 100 / 100 Output Total 225 / 225 500 / 500 Balance 616 / 616 41 / 41 100 / 100 Weight 92.9 kg Consult Discharge Plan - Plan Referrals: Linus Ritchie MD [Primary Care Provider] - <Howard Garcia - Last Filed: 01/27/17 21:19> Date of Encounter: 01/27/17 Objective PUL Vital signs: Last Vital Signs Temp 97.9 F 01/27/17 19:30 Pulse 108 01/27/17 20:00 Resp 19 01/27/17 20:00 BP 91/68 01/27/17 20:00 Pulse Ox 100 01/27/17 20:00 Results - Laboratory Findings CBC and BMP: 01/27/17 04:03 01/27/17 04:03 ABG ABG pH 7.33 pH Units (7.32-7.45) 01/27/17 12:42 ABG pCO2 36 mmHg (35-45) 01/27/17 12:42 ABG pO2 113 mmHg (85-104) H 01/27/17 12:42 ABG O2 Saturation 98 % (95-98) 01/27/17 12:42 Abnormal lab findings: Abnormal lab results RBC 3.61 M/mcL (3.82-4.97) L 01/27/17 04:03 Hgb 9.4 g/dL (11.5-15.4) L 01/27/17 04:03 Hct 30.5 % (35.3-44.9) L 01/27/17 04:03 MCH 26.0 pg (28.0-33.3) L 01/27/17 04:03 MCHC 30.8 g/dL (31.6-35.5) L 01/27/17 04:03 RDW 16.1 % (11.5-14.5) H 01/27/17 04:03 Lymphocytes # 0.2 K/mcL (0.6-4.6) L 01/27/17 04:03 ABG pO2 113 mmHg (85-104) H 01/27/17 12:42 ABG HCO3 19 mEq/L (21-27) L 01/27/17 12:42 ABG Base Excess -6 mEq/L (-2 to 3) L 01/27/17 12:42 VBG pH 7.26 pH Units (7.32-7.42) L 01/27/17 04:32 VBG pO2 92 mmHg (25-50) H 01/27/17 04:32 Chloride 111 mEq/L (98-109) H 01/27/17 04:03 Carbon Dioxide 18 mEq/L (19-29) L 01/27/17 04:03 BUN 71 mg/dL (7-20) H 01/27/17 04:03 Creatinine 3.11 mg/dL (0.57-1.11) H 01/27/17 04:03 Est GFR ( Amer) 18 (> 60) L 01/27/17 04:03 Est GFR (Non-Af Amer) 14 (> 60) L 01/27/17 04:03 Glucose 233 mg/dL (70-99) H 01/27/17 04:03 POC Glucose 179 (58-89) H 01/27/17 18:34 Calculated Osmolality 318 (280-300) H 01/27/17 04:03 Phosphorus 5.0 mg/dL (2.3-4.7) H 01/26/17 09:30 B-Natriuretic Peptide 2038 pg/mL (0-100) H 01/24/17 08:23 - Microbiology Findings Microbiology Findings: Microbiology, Last 48 Hours 01/25/17 09:00 Sputum Culture - Preliminary Sputum - Clinical Findings Intake & Output: Intake & Output 01/27/17 01/27/17 01/27/17 07:59 15:59 23:59 Intake Total 541 / 541 320 / 320 60 / 60 Output Total 500 / 500 150 / 150 300 / 300 Balance 41 / 41 170 / 170 -240 / -240 Weight 92.9 kg - Attending Attestation saw the patient with the resident agree with History and Physical exam findings. Labs and Radiology were reviewed Ventilator data were reviewed SENIOR GEOLOGIST: Patient is conscious following commands intubated will try to extubate her today NECK : No JVD appreciated Pulmonary : Patient has acute on chronic hypoxic respiratory failure complicated by COPD Vs CHF exacerbation complicated by pneumonia patient good improvement in lung mechanics with minimal O2 requirements patient did well with SBT patient was extubated to NC 4 litres will give BIPAP 12/6 overnight to see how she tolerates Cardiac : Hemodynamically stable Acute on Chronic systolic dysfunction to hold off diuresis for now as kidney function is slowly improving . Nutrition/GI: PPI prophylaxis Renal : TARAH on Chronic kidney injury diuresis worsened the kidney function will hold off diuresis . Nephrology consulted tried fluid challenge will judiciously hydrate in the setting of extubation Heme onc : All Labs reviewed Hand H stable . Appreciate oncology consult for prognostication overall poor prognosis ID : To follow cultures to continue broad spectrum antibiotics Disposition : Remains critically ill Code status: Full Code , Palliative consulted to discuss about future goals of care . Spent 45 minutes of critical care time in medical decision making to prevent further vital organ decline and support of current vital organ function .
--- NOTE | 2017-01-27 09:52 | Nephrology Consult Note ---
Date of Encounter: 01/26/17 Time of Encounter: 11:00 Assessment and Plan (1) Acute on chronic renal failure Current Visit: Yes Status: Acute Patient with oliguric TARAH on CKD that seems to be secondary to volume depletion. Recommend avoiding nephrotoxins. Adjust medications for renal function. Work-up ordered. Consider gentle fluids. Qualifiers: Acute renal failure type: unspecified Chronic kidney disease stage: stage 4 (severe) Qualified Code(s): N17.9 - Acute kidney failure, unspecified; N18.4 - Chronic kidney disease, stage 4 (severe); N18.4 - Chronic kidney disease , stage 4 (severe); N18.4 - Chronic kidney disease, stage 4 (severe); N18.4 - Chronic kidney disease, stage 4 (severe) (2) Type 2 diabetes mellitus Current Visit: No Status: Chronic Per primary team. Qualifiers: Diabetes mellitus complication status: without complication Diabetes mellitus long term care pharmacist insulin use: with [facility] use Qualified Code(s): E11.9 - Type 2 diabetes mellitus without complications; Z79.4 - prison (current) use of insulin; Z79.4 - long term care pharmacist (current) use of insulin; Z79.4 - long term care pharmacist ( current) use of insulin; Z79.4 - prison (current) use of insulin (3) Acute hypoxemic respiratory failure Current Visit: Yes Status: Acute Patient intubated. Per primary team. (4) Pneumonia Current Visit: Yes Status: Suspected Antibiotics per primary team. Qualifiers: Pneumonia type: due to unspecified organism Laterality: right Lung location: lower lobe of lung Qualified Code(s): J18.1 - Lobar pneumonia, unspecified organism History of Present Illness - Reason for Consult Consult date: 01/26/17 Acute Kidney Injury - Chief Complaint TARAH - History of Present Illness Ms. Piña is a 76 yo woman with a history of CKD who presents with dyspnea and was diagnosed with acute respiratory failure and intubated. History was obtained from the and son at the bedside as well as reviewing her admission H&P. Patient was SOB for a few days prior to admission. She has a history of lung cancer and missed her last chemotherapy secondary to the holidays. Complete review of systems was unobtainable as the patient was intubated. Patient seen on 01/27/2017 Past Med Surg Social Fam HX - Past Medical History Medical history: cancer, CHF, COPD, coronary artery disease, diabetes, hypertension, myocardial infarction, renal disease Psychiatric history: no psych history - Past Surgical History Surgical History: angioplasty/stent, other (Tubal ligation) - Social History Smoking Status: Former smoker Smokeless Tobacco Status: No Alcohol use: none Drug use: none - Family History Brother Family Member Ethnicity: Non- Living Status: Hx Family Cardiac Disorders: Yes ([place]) Mother Family Member Ethnicity: Non- Living Status: Father Family Member Ethnicity: Non- Living Status: Hx Family Cardiac Disorders: Yes (Aneurysm) Sister Family Member Ethnicity: Non- Hx Family Cancer: Yes (breast cancer) Medications and Allergies Clopidogrel [Plavix] 75 mg PO DAILY 05/15/15 [History] Aspirin Enteric Coated [Aspirin EC] 81 mg PO DAILY 07/17/15 [History] Ergocalciferol (VITAMIN D2) [Vitamin D2] 2,000 unit PO DAILY 07/17/15 [History] Isosorbide MONOnitrate (24 HR) [Imdur] 30 mg PO DAILY 06/08/16 [History] Diltiazem CD (24hr) [Cardizem CD] 120 mg PO DAILY 08/22/16 [History] Oxygen 2 l .ROUTE AD 08/22/16 [History] Levothyroxine [Synthroid] 75 mcg PO DAILY #30 tablet 01/20/17 [Rx] Albuterol Sulfate [Albuterol Inhaler] 1 - 2 puff IH Q6HR 01/24/17 [History] Tiotropium [Spiriva] 18 mcg IH DAILY 01/24/17 [History] Umeclidinium [place] [Incruse Ellipta] 62.5 mcg IH DAILY 01/24/17 [History] 3 Allergy/AdvReac Type Severity Reaction Status Date / Time No Known Allergies Allergy Verified 01/20/17 15:47 Review of Systems ROS unobtainable: due to endotracheal tube Exam - Vital Signs Vital signs: Initial Vital Signs Temp Pulse Resp BP Pulse Ox 97.6 F 102 24 144/111 98 01/24/17 07:44 01/24/17 07:44 01/24/17 07:44 01/24/17 07:44 01/24/17 07:44 Vital Signs - Last 8 Hours Temp Pulse Resp BP Pulse Ox 01/27/17 08:14 27 94/58 94 01/27/17 08:00 97.4 F L 98 27 94/58 94 01/27/17 07:46 97.4 F L 01/27/17 07:00 96 27 102/63 94 01/27/17 06:14 22 94/66 98 01/27/17 06:00 96 22 94/66 98 01/27/17 05:09 97 23 85/54 96 01/27/17 05:00 97.5 F L 01/27/17 04:08 22 101/67 97 01/27/17 04:00 101 22 101/67 97 01/27/17 03:00 110 21 118/71 99 01/27/17 02:50 22 112/84 97 01/27/17 02:00 98 21 97/73 95 Intake and Output 01/26/17 01/27/17 01/27/17 23:59 07:59 15:59 Intake Total 841 / 841 541 / 541 100 / 100 Output Total 225 / 225 500 / 500 Balance 616 / 616 41 / 41 100 / 100 Intake: IV Fluids 400 / 400 200 / 200 100 / 100 PRECEDEX Premix 400 mcg In 100 100 / 100 200 / 200 ml @ 0.2 MCG/KG/HR 4.655 mls/hr IVC .[id number] [facility] Rx#: [id number] FentaNYL (PF) 1,000 MCG In 0.9 100 / 100 100 / 100 % Sodium Chloride 80 ML @ 50 MCG/HR 5 mls/hr IVC [facility] Rx #:[id number] Zosyn Premix 3.375 GM/200 ML 3. 200 / 200 375 gm In 200 ml @ 50 mls/hr IVPB Q12HR [facility] Rx#:[id number] Tube Feeding 441 / 441 296 / 296 Free Water 45 / 45 Output: Catheter 225 / 225 500 / 500 Other: Weight 92.9 kg Blood Glucose* 262 215 Patient Weight 01/27/17 23:59 Weight 92.9 kg - General Appearance General appearance: well-developed, well-nourished, sedated on ventilator, intubated EENT: ATNC Neck: supple Respiratory: course breath sounds Cardiology: no edema, regular rate, regular rhythm Gastrointestinal: no tenderness Integumentary: warm and dry Musculoskeletal: no cyanosis Results - Lab Results 01/27/17 04:03 01/27/17 22:40 Most recent lab results ABG pH 7.35 pH Units (7.32-7.45) 01/27/17 04:05 ABG pCO2 36 mmHg (35-45) 01/27/17 04:05 ABG pO2 88 mmHg (85-104) 01/27/17 04:05 ABG HCO3 20 mEq/L (21-27) L 01/27/17 04:05 ABG O2 Saturation 96 % (95-98) 01/27/17 04:05 Calcium 8.7 mg/dL (8.6-10.8) 01/27/17 04:03 Phosphorus 5.0 mg/dL (2.3-4.7) H 01/26/17 09:30 Magnesium 2.0 mg/dL (1.6-2.6) 01/26/17 09:30 Urine Creatinine 124 mg/dL 01/26/17 09:25 Urine Sodium < 20.0 mEq/L 01/26/17 09:25 Consult Discharge Plan - Plan Referrals: Linus Ritchie MD [Primary Care Provider] -
--- NOTE | 2017-01-27 09:56 | Nephrology Progress Note ---
Date of Encounter: 01/27/17 Time of Encounter: 09:53 - Assessment and Plan (1) Acute hypoxemic respiratory failure Current Visit: Yes Status: Acute Intubated. Management per primary team. (2) Acute on chronic renal failure Current Visit: Yes Status: Acute Renal function improving. No need for dialysis. Appears to be prerenal/ATN. Consider hydration. Adjust medications for renal function. She should return to baseline. Qualifiers: Acute renal failure type: unspecified Chronic kidney disease stage: stage 4 (severe) Qualified Code(s): N17.9 - Acute kidney failure, unspecified; N18.4 - Chronic kidney disease, stage 4 (severe); N18.4 - Chronic kidney disease , stage 4 (severe); N18.4 - Chronic kidney disease, stage 4 (severe); N18.4 - Chronic kidney disease, stage 4 (severe) (3) Pneumonia Current Visit: Yes Status: Suspected Antibiotics per primary team. Qualifiers: Pneumonia type: due to unspecified organism Laterality: right Lung location: lower lobe of lung Qualified Code(s): J18.1 - Lobar pneumonia, unspecified organism (4) Type 2 diabetes mellitus Current Visit: No Status: Chronic Per primary team. Qualifiers: Diabetes mellitus complication status: without complication Diabetes mellitus skilled nursing insulin use: with skilled nursing use Qualified Code(s): E11.9 - Type 2 diabetes mellitus without complications; Z79.4 - bed bug exterminator (current) use of insulin; Z79.4 - bed bug exterminator (current) use of insulin; Z79.4 - correction ( current) use of insulin; Z79.4 - correction (current) use of insulin Subjective Principal diagnosis: Acute and chronic respiratory failure with hypoxia Interval history: Patient seen and evaluated. Patient intubated. Complete review of systems was unobtainable. Objective - Vital Signs Vital signs: Vital Signs Temp Pulse Resp BP Pulse Ox 01/27/17 08:14 27 94/58 94 01/27/17 08:00 97.4 F L 98 27 94/58 94 01/27/17 07:46 97.4 F L 01/27/17 07:00 96 27 102/63 94 01/27/17 06:14 22 94/66 98 01/27/17 06:00 96 22 94/66 98 01/27/17 05:09 97 23 85/54 96 01/27/17 05:00 97.5 F L 01/27/17 04:08 22 101/67 97 01/27/17 04:00 101 22 101/67 97 01/27/17 03:00 110 21 118/71 99 01/27/17 02:50 22 112/84 97 01/27/17 02:00 98 21 97/73 95 01/27/17 01:00 121 21 95/71 99 01/27/17 00:36 24 98/74 98 01/27/17 00:09 96.6 F L 01/27/17 00:00 141 21 100/76 96 01/26/17 23:10 102 01/26/17 23:00 102 22 107/84 97 01/26/17 22:22 22 115/82 98 01/26/17 22:00 96 29 115/82 97 01/26/17 21:00 109 22 98/76 97 01/26/17 20:54 96.6 F L 01/26/17 20:08 22 90/59 97 01/26/17 20:00 88 28 90/59 98 01/26/17 19:00 82 22 109/68 95 01/26/17 18:23 86 27 112/67 98 01/26/17 17:20 22 113/64 97 01/26/17 16:33 90 22 121/72 98 01/26/17 15:55 97.4 F L 01/26/17 15:43 85 22 123/67 100 01/26/17 15:32 30 123/67 96 01/26/17 14:40 85 22 125/66 99 01/26/17 13:39 23 110/70 96 01/26/17 13:24 85 22 112/68 96 01/26/17 12:44 54 01/26/17 12:39 98.1 F 01/26/17 11:47 91 35 100/67 97 01/26/17 11:27 27 114/72 91 01/26/17 10:41 80 22 117/76 91 Intake and Output 01/26/17 01/27/17 01/27/17 23:59 07:59 15:59 Intake Total 841 / 841 541 / 541 100 / 100 Output Total 225 / 225 500 / 500 Balance 616 / 616 41 / 41 100 / 100 Intake: IV Fluids 400 / 400 200 / 200 100 / 100 PRECEDEX Premix 400 mcg In 100 100 / 100 200 / 200 ml @ 0.2 MCG/KG/HR 4.655 mls/hr IVC .[id number] [facility] Rx#: [id number] FentaNYL (PF) 1,000 MCG In 0.9 100 / 100 100 / 100 % Sodium Chloride 80 ML @ 50 MCG/HR 5 mls/hr IVC [facility] Rx #:[id number] Zosyn Premix 3.375 GM/200 ML 3. 200 / 200 375 gm In 200 ml @ 50 mls/hr IVPB Q12HR [facility] Rx#:[id number] Tube Feeding 441 / 441 296 / 296 Free Water 45 / 45 Output: Catheter 225 / 225 500 / 500 Other: Weight 92.9 kg Blood Glucose* 262 215 Patient Weight 01/27/17 23:59 Weight 92.9 kg - General Appearance General appearance: Present: well-developed, well-nourished EENT: Present: ATNC Neck: Present: supple Cardiology: Present: regular rate, regular rhythm Gastrointestinal: Present: no tenderness Integumentary: Present: warm and dry Additional Comments: alert Musculoskeletal: Present: no cyanosis Psychiatric: Present: mood/affect appropriate - Lab 01/27/17 04:03 01/27/17 22:40 Most recent lab results ABG pH 7.35 pH Units (7.32-7.45) 01/27/17 04:05 ABG pCO2 36 mmHg (35-45) 01/27/17 04:05 ABG pO2 88 mmHg (85-104) 01/27/17 04:05 ABG HCO3 20 mEq/L (21-27) L 01/27/17 04:05 ABG O2 Saturation 96 % (95-98) 01/27/17 04:05 Calcium 8.7 mg/dL (8.6-10.8) 01/27/17 04:03 Phosphorus 5.0 mg/dL (2.3-4.7) H 01/26/17 09:30 Magnesium 2.0 mg/dL (1.6-2.6) 01/26/17 09:30 Urine Creatinine 124 mg/dL 01/26/17 09:25 Urine Sodium < 20.0 mEq/L 01/26/17 09:25 Consult Discharge Plan - Plan Referrals: Linus Ritchie MD [Primary Care Provider] -
[2017-01-27 12:45] LABS: ABG Base Excess -6 mEq/L (-2 to 3); ABG HCO3 19 mEq/L (21-27); ABG Oxygen Saturation 98 % (95-98); ABG PCO2 36 mmHg (35-45); ABG PH 7.33 pH Units (7.32-7.45); ABG PO2 113 mmHg (85-104); ABG TCO2 20 mEq/L (20-26)
[2017-01-27] MEDS: Insulin DETEMIR 100 UNIT/ML X5UNITS SQ SCH (13:27)
[2017-01-27] MEDS: Ondansetron 4 MG/2 ML VIAL IVP PRN (16:11)
[2017-01-27 23:11] LABS: Calcium 8.6 mg/dL (8.6-10.8)
[2017-01-28] MEDS: Ipratropium/Albuterol Neb 3 ML IH SCH ×2 (00:08→04:49)
[2017-01-28] MEDS: MethylPREDNISolone 40 MG/ML VIAL IVP SCH ×2 (00:10→08:39)
[2017-01-28] MEDS: Lacri-Lube 3.5 GM TUBE BOTH EYES SCH ×3 (00:10→08:40)
[2017-01-28] MEDS: Insulin LISPRO 300 UNITS/3 ML VIAL SQ SCH ×2 (00:11→05:19)
[2017-01-28 03:59] LABS: VBG Ionized Calcium 1.24 mmol/L (1.15-1.35); VBG PH 7.32 pH Units (7.32-7.42)
[2017-01-28 04:05] LABS: Basophils % 0.1 %; Hematocrit 31.3 % (35.3-44.9); Hemoglobin 9.9 g/dL (11.5-15.4); Immature Granulocytes % 0.3 % (0-4); Lymphocytes # 0.2 K/mcL (0.6-4.6); Lymphocytes % 2.6 %; Mean Corpuscular HGB Conc 31.6 g/dL (31.6-35.5); Mean Corpuscular Hemoglobin 26.7 pg (28.0-33.3); Mean Corpuscular Volume 84.4 fL (83.0-100.0); Mean Platelet Volume 11.1 fL (9.4-12.4); Monocytes # 0.4 K/mcL (0.0-1.3); Monocytes % 4.8 %; Neutrophils # 8.3 K/mcL (1.6-8.9); Platelet Count 175 K/mcL (140-400); Red Blood Count 3.71 M/mcL (3.82-4.97); Red Cell Distribution Width 16.7 % (11.5-14.5); Segmented Neutrophils % 92.2 %
[2017-01-28 04:20] LABS: Magnesium 2.6 mg/dL (1.6-2.6); Potassium 4.1 mEq/L (3.5-4.5)
[2017-01-28] MEDS: Piperacillin/Tazobactam 3.375 GM/200 ML BAG IVPB SCH (05:13)
[2017-01-28] MEDS: *HR* Heparin 5,000 UNIT/ML VIAL SQ SCH (05:13)
[2017-01-28] MEDS ORDERED: Ringers Solution, Lactated 1,000 ML IVC ONE (07:12)
--- NOTE | 2017-01-28 08:09 | Palliative Progress Note ---
<Nicholas Daley - Last Filed: 01/28/17 11:03> Date of Encounter: 01/28/17 Time of Encounter: 08:09 - Assessment and plan (1) Goals of care, counseling/discussion Status: Acute Assessment and plan: - Discussion with patient and family on 01/25 regarding goals of care - Pt remains full code and desires to continue chemotherapy treatment. - She remains alert and oriented and appears able to make her own decisions. - Pt states that she is interested in second opinion at [facility]. She is improving however her SOB is not improving as much as she has hoped. - Will likely discuss with when he arrives regarding further care. - Pt states DNI but is OK with full code status. This will need to be clarified with patient and family when they are both present and if they decide to stay at this hospital. - Would likely meet criteria for hospice if pt changes her mind about wanting further treatments for SCC. (2) Acute hypoxemic respiratory failure Status: Acute Assessment and plan: -Extubated yesterday afternoon. - Tolerating RA with O2 sats in mid 90s. - SOB complaint likely secondary to Tachycardia and anxiety. - Further management per primary (3) TARAH (acute kidney injury) Status: Acute Assessment and plan: - TARAH on stage IV CKD - Stable kidney function this AM. Urine output improved as well. - Nephrology following. - Further management per primary team (4) SCCA (small cell carcinoma of lung) Status: Chronic Assessment and plan: - Still receives chemotherapy from [facility] - Onc consulted. - pt remains full code and plans to continue treatment as outpatient. - Poor prognosis per oncology. Qualifiers: Laterality: unspecified laterality Qualified Code(s): C34.90 - Malignant neoplasm of unspecified part of unspecified bronchus or lung (5) Dyspnea Status: Acute Assessment and plan: - Likely secondary to anxiety, tachycardia, s/p extubation - Reinforced that she does not want to be intubated again. - Management per primary team Qualifiers: Dyspnea type: shortness of breath Qualified Code(s): R06.02 - Shortness of breath; R06.00 - Dyspnea, unspecified; R06.01 - Orthopnea - Time Spent With Patient Total time spent is greater than 50% in coordination of care (as documented) at patient's floor/unit and/or counseling patient: less than 15 minutes - Subjective Interval history: Ms. Piña was seen and examined at bedside this morning. She was extubated yesterday evening and has been tolerating NC well. She does appear to be anxious this morning and feels SOB. She is mentioning that she may be interested in a second opinion at [facility]. She is adamant that she has received adequate care here, however she has been struggling with SOB for the past 3 months. She understands that her prognosis is poor however she is not comfortable with her breathing. was not present at time of interview. She did state that she would not like to be re-intubated. She is OK with resusitation. This will need to be readdressed if she stays in our service. - Constitutional Vitals: Abnormal lab results RBC 3.71 M/mcL (3.82-4.97) L 01/28/17 03:47 Hgb 9.9 g/dL (11.5-15.4) L 01/28/17 03:47 Hct 31.3 % (35.3-44.9) L 01/28/17 03:47 MCH 26.7 pg (28.0-33.3) L 01/28/17 03:47 RDW 16.7 % (11.5-14.5) H 01/28/17 03:47 Lymphocytes # 0.2 K/mcL (0.6-4.6) L 01/28/17 03:47 ABG pO2 113 mmHg (85-104) H 01/27/17 12:42 ABG HCO3 19 mEq/L (21-27) L 01/27/17 12:42 ABG Base Excess -6 mEq/L (-2 to 3) L 01/27/17 12:42 VBG pO2 92 mmHg (25-50) H 01/27/17 04:32 Chloride 111 mEq/L (98-109) H 01/28/17 03:47 BUN 89 mg/dL (7-20) H 01/28/17 03:47 Creatinine 3.11 mg/dL (0.57-1.11) H 01/28/17 03:47 Est GFR ( Amer) 18 (> 60) L 01/28/17 03:47 Est GFR (Non-Af Amer) 14 (> 60) L 01/28/17 03:47 BUN/Creatinine Ratio 29 (6-26) H 01/28/17 03:47 Glucose 167 mg/dL (70-99) H 01/28/17 03:47 POC Glucose 153 (58-89) H 01/28/17 05:19 Calculated Osmolality 325 (280-300) H 01/28/17 03:47 B-Natriuretic Peptide 2038 pg/mL (0-100) H 01/24/17 08:23 General appearance: Present: cooperative, mild distress, morbidly obese - Head Head exam: Present: atraumatic, normal inspection, normocephalic - ENT ENT exam: Present: mucous membranes moist - Respiratory Respiratory exam: Present: decreased breath sounds, rhonchi - Cardiovascular Cardiovascular exam: Present: +S1, +S2, tachycardia Palliative Quality Palliative Quality: Screen for Code Status: Yes, Screen for Goals of Care: Yes, Screen for Pain: Yes, If Pain Regimen Started, Initiate Bowel Regimen: NA, Screen for Nausea/Vomitting: Yes Code Status: 01/24/17 18:02 CODE [Resuscitation Status: Active] [RES] Routine Comment: Resuscitation Status: Full Code - Labs CBC & Chem 7: 01/28/17 03:47 01/28/17 03:47 Labs: Laboratory Results - last 24 hr 01/27/17 01/27/17 01/27/17 11:34 12:42 18:34 WBC RBC Hgb Hct MCV MCH MCHC RDW Plt Count MPV Immature Gran % Seg Neutrophils % Lymphocytes % Monocytes % Eosinophils % Basophils % Neutrophils # Lymphocytes # Monocytes # Eosinophils # Basophils # ABG pH 7.33 ABG pCO2 36 ABG pO2 113 H ABG HCO3 19 L ABG Total CO2 20 ABG O2 Saturation 98 ABG Base Excess -6 L VBG pH Sodium Potassium Chloride Carbon Dioxide BUN Creatinine Est GFR ( Amer) Est GFR (Non-Af Amer) BUN/Creatinine Ratio Glucose POC Glucose 153 H 179 H Calculated Osmolality Calcium Venous Ioniz Calcium Phosphorus Magnesium 01/27/17 01/28/17 01/28/17 22:40 00:04 03:47 WBC 9.0 RBC 3.71 L Hgb 9.9 L Hct 31.3 L MCV 84.4 MCH 26.7 L MCHC 31.6 RDW 16.7 H Plt Count 175 MPV 11.1 Immature Gran % 0.3 Seg Neutrophils % 92.2 Lymphocytes % 2.6 Monocytes % 4.8 Eosinophils % 0.0 Basophils % 0.1 Neutrophils # 8.3 Lymphocytes # 0.2 L Monocytes # 0.4 Eosinophils # 0.0 Basophils # 0.0 ABG pH ABG pCO2 ABG pO2 ABG HCO3 ABG Total CO2 ABG O2 Saturation ABG Base Excess VBG pH Sodium 142 Potassium 4.0 Chloride 112 H Carbon Dioxide 20 BUN 84 H Creatinine 2.97 H Est GFR ( Amer) 19 L Est GFR (Non-Af Amer) 15 L BUN/Creatinine Ratio 28 H Glucose 182 H POC Glucose 163 H Calculated Osmolality 324 H Calcium 8.6 Venous Ioniz Calcium Phosphorus Cancelled Magnesium Cancelled 01/28/17 01/28/17 01/28/17 03:47 03:57 05:19 WBC RBC Hgb Hct MCV MCH MCHC RDW Plt Count MPV Immature Gran % Seg Neutrophils % Lymphocytes % Monocytes % Eosinophils % Basophils % Neutrophils # Lymphocytes # Monocytes # Eosinophils # Basophils # ABG pH ABG pCO2 ABG pO2 ABG HCO3 ABG Total CO2 ABG O2 Saturation ABG Base Excess VBG pH 7.32 Sodium 142 Potassium 4.1 Chloride 111 H Carbon Dioxide 20 BUN 89 H Creatinine 3.11 H Est GFR ( Amer) 18 L Est GFR (Non-Af Amer) 14 L BUN/Creatinine Ratio 29 H Glucose 167 H POC Glucose 153 H Calculated Osmolality 325 H Calcium 9.0 Venous Ioniz Calcium 1.24 Phosphorus 4.0 Magnesium 2.6 - ABG Interpretation ABG results: ABG ABG pH 7.33 pH Units (7.32-7.45) 01/27/17 12:42 ABG pCO2 36 mmHg (35-45) 01/27/17 12:42 ABG pO2 113 mmHg (85-104) H 01/27/17 12:42 ABG O2 Saturation 98 % (95-98) 01/27/17 12:42 Consult Discharge Plan - Plan Referrals: Linus Ritchie MD [Primary Care Provider] - <Edvin Larios - Last Filed: 01/28/17 15:45> Date of Encounter: 01/28/17 - Time Spent With Patient Total time spent is greater than 50% in coordination of care (as documented) at patient's floor/unit and/or counseling patient: - Constitutional Vitals: Abnormal lab results RBC 3.71 M/mcL (3.82-4.97) L 01/28/17 03:47 Hgb 9.9 g/dL (11.5-15.4) L 01/28/17 03:47 Hct 31.3 % (35.3-44.9) L 01/28/17 03:47 MCH 26.7 pg (28.0-33.3) L 01/28/17 03:47 RDW 16.7 % (11.5-14.5) H 01/28/17 03:47 Lymphocytes # 0.2 K/mcL (0.6-4.6) L 01/28/17 03:47 ABG pCO2 28 mmHg (35-45) L 01/28/17 11:59 ABG pO2 67 mmHg (85-104) L 01/28/17 11:59 ABG HCO3 15 mEq/L (21-27) L 01/28/17 11:59 ABG Total CO2 16 mEq/L (20-26) L 01/28/17 11:59 ABG O2 Saturation 92 % (95-98) L 01/28/17 11:59 ABG Base Excess -9 mEq/L (-2 to 3) L 01/28/17 11:59 VBG pO2 92 mmHg (25-50) H 01/27/17 04:32 Chloride 111 mEq/L (98-109) H 01/28/17 03:47 BUN 89 mg/dL (7-20) H 01/28/17 03:47 Creatinine 3.11 mg/dL (0.57-1.11) H 01/28/17 03:47 Est GFR ( Amer) 18 (> 60) L 01/28/17 03:47 Est GFR (Non-Af Amer) 14 (> 60) L 01/28/17 03:47 BUN/Creatinine Ratio 29 (6-26) H 01/28/17 03:47 Glucose 167 mg/dL (70-99) H 01/28/17 03:47 POC Glucose 153 (58-89) H 01/28/17 05:19 Calculated Osmolality 325 (280-300) H 01/28/17 03:47 B-Natriuretic Peptide 2038 pg/mL (0-100) H 01/24/17 08:23 - Attending Attestation I examined this patient and my medical decision-making was reviewed with the Resident Physician. I agree with the documented findings, disposition and treatment plan as described except to the extent set forth below. Palliative Quality Code Status: 01/24/17 18:02 CODE [Resuscitation Status: Active] [RES] Routine Comment: Resuscitation Status: Full Code - Labs CBC & Chem 7: 01/28/17 03:47 01/28/17 03:47 Labs: Laboratory Results - last 24 hr 01/27/17 01/27/17 01/28/17 18:34 22:40 00:04 WBC RBC Hgb Hct MCV MCH MCHC RDW Plt Count MPV Immature Gran % Seg Neutrophils % Lymphocytes % Monocytes % Eosinophils % Basophils % Neutrophils # Lymphocytes # Monocytes # Eosinophils # Basophils # Sample Site ABG pH ABG pCO2 ABG pO2 ABG HCO3 ABG Total CO2 ABG O2 Saturation ABG Base Excess Mateo Test VBG pH O2 Delivery Device Inspired O2 Sodium 142 Potassium 4.0 Chloride 112 H Carbon Dioxide 20 BUN 84 H Creatinine 2.97 H Est GFR ( Amer) 19 L Est GFR (Non-Af Amer) 15 L BUN/Creatinine Ratio 28 H Glucose 182 H POC Glucose 179 H 163 H Calculated Osmolality 324 H Calcium 8.6 Venous Ioniz Calcium Phosphorus Cancelled Magnesium Cancelled 01/28/17 01/28/17 01/28/17 03:47 03:47 03:57 WBC 9.0 RBC 3.71 L Hgb 9.9 L Hct 31.3 L MCV 84.4 MCH 26.7 L MCHC 31.6 RDW 16.7 H Plt Count 175 MPV 11.1 Immature Gran % 0.3 Seg Neutrophils % 92.2 Lymphocytes % 2.6 Monocytes % 4.8 Eosinophils % 0.0 Basophils % 0.1 Neutrophils # 8.3 Lymphocytes # 0.2 L Monocytes # 0.4 Eosinophils # 0.0 Basophils # 0.0 Sample Site ABG pH ABG pCO2 ABG pO2 ABG HCO3 ABG Total CO2 ABG O2 Saturation ABG Base Excess Mateo Test VBG pH 7.32 O2 Delivery Device Inspired O2 Sodium 142 Potassium 4.1 Chloride 111 H Carbon Dioxide 20 BUN 89 H Creatinine 3.11 H Est GFR ( Amer) 18 L Est GFR (Non-Af Amer) 14 L BUN/Creatinine Ratio 29 H Glucose 167 H POC Glucose Calculated Osmolality 325 H Calcium 9.0 Venous Ioniz Calcium 1.24 Phosphorus 4.0 Magnesium 2.6 01/28/17 01/28/17 05:19 11:59 WBC RBC Hgb Hct MCV MCH MCHC RDW Plt Count MPV Immature Gran % Seg Neutrophils % Lymphocytes % Monocytes % Eosinophils % Basophils % Neutrophils # Lymphocytes # Monocytes # Eosinophils # Basophils # Sample Site L Radial ABG pH 7.35 ABG pCO2 28 L ABG pO2 67 L ABG HCO3 15 L ABG Total CO2 16 L ABG O2 Saturation 92 L ABG Base Excess -9 L Mateo Test N/A VBG pH O2 Delivery Device Cannula Inspired O2 4.0 Sodium Potassium Chloride Carbon Dioxide BUN Creatinine Est GFR ( Amer) Est GFR (Non-Af Amer) BUN/Creatinine Ratio Glucose POC Glucose 153 H Calculated Osmolality Calcium Venous Ioniz Calcium Phosphorus Magnesium - Impressions Impressions Retroperitoneum Ultrasound 01/28/17 11:00 IMPRESSION: 1. Increased echogenicity of the kidneys can be seen with medical renal disease. 2. No hydronephrosis. D/ / Carroll Ortiz MD / Carroll Ortiz MD Interpreting Provider: Carroll Ortiz MD - ABG Interpretation ABG results: ABG ABG pH 7.35 pH Units (7.32-7.45) 01/28/17 11:59 ABG pCO2 28 mmHg (35-45) L 01/28/17 11:59 ABG pO2 67 mmHg (85-104) L 01/28/17 11:59 ABG O2 Saturation 92 % (95-98) L 01/28/17 11:59
--- NOTE | 2017-01-28 08:24 | Pulmonology Progress Note ---
<Kerry Fraga - Last Filed: 01/28/17 13:16> Date of Encounter: 01/28/17 Time of Encounter: 08:22 Assessment and Plan (1) Acute and chronic respiratory failure with hypoxia Status: Acute Likely multifactorial including acute exacerbation of COPD, CHF, possible pneumonia in the setting of lung cancer. -Patient satting well on 4L NC O2, however, she is short of breath with increased work of breathing. -Sputum culture normal URT edward. -Limited echo 01/25 LVEF 40% with mild dilated of LV. -Patient's creatinine initially responded favorably to gentle hydration. Likely prerenal/ATN based on her urine sodium/FeNa. -Appreciate nephrology recommendations. -Despite inital improvement with hydration, patient's respiratory status has worsened. We will hold hydration and give furosemide especially given that she refuses re-intubation. -Cardizem bolus and drip ordered for a fib with RVR to see if it improves patient's respiratory status. -Continue zosyn for PNA coverage. DC'd 2 vancomycin 2/2 kidney function. -Steroids and Xopenex for COPD exacerbation-Hold symbicort as patient is tachycardic. -Patient to be transferred to [facility] at her request for a second opinion. (2) Acute on chronic renal failure Status: Acute Patient's creatinine up to 3.11 from 2.97 yesterday. -Prerenal (FeNa 0.4%) due to hypovolemia, heart failure, renal artery stenosis vs sepsis. -Situation complicated by respiratory status- Will hold fluids and give lasix as above despite her initial improvement in creatinine with hydration yesterday. -Continue to hold Vanc. -Patient to be transferred to [facility] at her request. Qualifiers: Acute renal failure type: unspecified Chronic kidney disease stage: stage 4 (severe) Qualified Code(s): N17.9 - Acute kidney failure, unspecified; N18.4 - Chronic kidney disease, stage 4 (severe); N18.4 - Chronic kidney disease , stage 4 (severe); N18.4 - Chronic kidney disease, stage 4 (severe); N18.4 - Chronic kidney disease, stage 4 (severe) (3) Pneumonia Status: Suspected Chest x-ray on 01/24/2017 shows unchanged large left pleural effusion and bilateral consolidations. -Sputum culture preliminarily negative. -Blood culture preliminarily negative. -Zosyn day 5. Qualifiers: Pneumonia type: due to unspecified organism Laterality: right Lung location: lower lobe of lung Qualified Code(s): J18.1 - Lobar pneumonia, unspecified organism (4) Acute exacerbation of chronic obstructive pulmonary disease (COPD) Status: Acute -Continue Solu-Medrol. DC symbicort, give Xopenex per patient's HR. (5) Congestive heart failure Status: Acute Echocardiogram done today on 01/25/2017 shows minimal changes from echo performed on 08/23/2016 which shows LVEF of 40% with systolic dysfunction. -Resume lasix, DC fluids as patient's respiratory status declining today and patient no longer desiring intubation. Qualifiers: Congestive heart failure type: systolic Congestive heart failure chronicity : unspecified congestive heart failure chronicity Qualified Code(s): I50.20 - Unspecified systolic (congestive) heart failure (6) Squamous cell lung cancer Status: Chronic On immunotherapy per patient's oncologist Dr. Booker's note -Oncology consult. -Patient now requesting to be DNR-CC/DNI Qualifiers: Laterality: left Qualified Code(s): C34.92 - Malignant neoplasm of unspecified part of left bronchus or lung (7) Type 2 diabetes mellitus Status: Chronic -Insulin Sliding scale with frequent glucose monitoring. -DC basal insulin as we are decreasing amount of steroids today. Qualifiers: Diabetes mellitus complication status: without complication Diabetes mellitus fpc insulin use: with fpc use Qualified Code(s): E11.9 - Type 2 diabetes mellitus without complications; Z79.4 - nursing home (current) use of insulin; Z79.4 - nursing home (current) use of insulin; Z79.4 - nursing home ( current) use of insulin; Z79.4 - nursing home (current) use of insulin (8) DVT prophylaxis Status: Acute Heparin 5000 units subcutaneous twice a day. -GI prophylaxis- IV proton pump inhibitor, protonix 40 mg IV daily. Subjective Principal diagnosis: Acute and chronic respiratory failure with hypoxia Interval history: Patient complaining of shortness of breath this morning. She states she does not wish to have a breathing tube again. She is uncomfortable. Objective PUL Vital signs: Last Vital Signs Temp 96.6 F L 01/28/17 03:07 Pulse 137 01/28/17 06:00 Resp 25 01/28/17 06:00 BP 117/62 01/28/17 06:00 Pulse Ox 100 01/28/17 06:00 General appearance: appears uncomfortable Eyes: injected ENT: oropharynx dry Effort: mildly labored Auscultation: bilateral: wheezes, rales, rhonchi Cardiovascular: other (Tachycardic) Integumentary: normal Extremities: no cyanosis, pink and warm, pulses normal Musculoskeletal: no deformities normal mental status Results - Laboratory Findings CBC and BMP: 01/28/17 03:47 01/28/17 03:47 ABG ABG pH 7.33 pH Units (7.32-7.45) 01/27/17 12:42 ABG pCO2 36 mmHg (35-45) 01/27/17 12:42 ABG pO2 113 mmHg (85-104) H 01/27/17 12:42 ABG O2 Saturation 98 % (95-98) 01/27/17 12:42 Abnormal lab findings: Abnormal lab results RBC 3.71 M/mcL (3.82-4.97) L 01/28/17 03:47 Hgb 9.9 g/dL (11.5-15.4) L 01/28/17 03:47 Hct 31.3 % (35.3-44.9) L 01/28/17 03:47 MCH 26.7 pg (28.0-33.3) L 01/28/17 03:47 RDW 16.7 % (11.5-14.5) H 01/28/17 03:47 Lymphocytes # 0.2 K/mcL (0.6-4.6) L 01/28/17 03:47 ABG pO2 113 mmHg (85-104) H 01/27/17 12:42 ABG HCO3 19 mEq/L (21-27) L 01/27/17 12:42 ABG Base Excess -6 mEq/L (-2 to 3) L 01/27/17 12:42 VBG pO2 92 mmHg (25-50) H 01/27/17 04:32 Chloride 111 mEq/L (98-109) H 01/28/17 03:47 BUN 89 mg/dL (7-20) H 01/28/17 03:47 Creatinine 3.11 mg/dL (0.57-1.11) H 01/28/17 03:47 Est GFR ( Amer) 18 (> 60) L 01/28/17 03:47 Est GFR (Non-Af Amer) 14 (> 60) L 01/28/17 03:47 BUN/Creatinine Ratio 29 (6-26) H 01/28/17 03:47 Glucose 167 mg/dL (70-99) H 01/28/17 03:47 POC Glucose 153 (58-89) H 01/28/17 05:19 Calculated Osmolality 325 (280-300) H 01/28/17 03:47 B-Natriuretic Peptide 2038 pg/mL (0-100) H 01/24/17 08:23 - Microbiology Findings Microbiology Findings: Microbiology, Last 48 Hours 01/25/17 09:00 Sputum Culture - Final Sputum - Clinical Findings Intake & Output: Intake & Output 01/27/17 01/28/17 01/28/17 23:59 07:59 15:59 Intake Total 260 / 260 Output Total 500 / 500 100 / 100 Balance -240 / -240 -100 / -100 Weight 93.21 kg Consult Discharge Plan - Plan Referrals: Linus Ritchie MD [Primary Care Provider] - <Howard Garcia S - Last Filed: 01/28/17 23:18> Date of Encounter: 01/28/17 Objective PUL Vital signs: Last Vital Signs Temp 97.2 F L 01/28/17 08:22 Pulse 135 01/28/17 11:00 Resp 24 01/28/17 11:00 BP 104/84 01/28/17 11:00 Pulse Ox 94 01/28/17 11:00 Results - Laboratory Findings CBC and BMP: 01/28/17 03:47 01/28/17 03:47 ABG ABG pH 7.35 pH Units (7.32-7.45) 01/28/17 11:59 ABG pCO2 28 mmHg (35-45) L 01/28/17 11:59 ABG pO2 67 mmHg (85-104) L 01/28/17 11:59 ABG O2 Saturation 92 % (95-98) L 01/28/17 11:59 Abnormal lab findings: Abnormal lab results RBC 3.71 M/mcL (3.82-4.97) L 01/28/17 03:47 Hgb 9.9 g/dL (11.5-15.4) L 01/28/17 03:47 Hct 31.3 % (35.3-44.9) L 01/28/17 03:47 MCH 26.7 pg (28.0-33.3) L 01/28/17 03:47 RDW 16.7 % (11.5-14.5) H 01/28/17 03:47 Lymphocytes # 0.2 K/mcL (0.6-4.6) L 01/28/17 03:47 ABG pCO2 28 mmHg (35-45) L 01/28/17 11:59 ABG pO2 67 mmHg (85-104) L 01/28/17 11:59 ABG HCO3 15 mEq/L (21-27) L 01/28/17 11:59 ABG Total CO2 16 mEq/L (20-26) L 01/28/17 11:59 ABG O2 Saturation 92 % (95-98) L 01/28/17 11:59 ABG Base Excess -9 mEq/L (-2 to 3) L 01/28/17 11:59 VBG pO2 92 mmHg (25-50) H 01/27/17 04:32 Chloride 111 mEq/L (98-109) H 01/28/17 03:47 BUN 89 mg/dL (7-20) H 01/28/17 03:47 Creatinine 3.11 mg/dL (0.57-1.11) H 01/28/17 03:47 Est GFR ( Amer) 18 (> 60) L 01/28/17 03:47 Est GFR (Non-Af Amer) 14 (> 60) L 01/28/17 03:47 BUN/Creatinine Ratio 29 (6-26) H 01/28/17 03:47 Glucose 167 mg/dL (70-99) H 01/28/17 03:47 POC Glucose 153 (58-89) H 01/28/17 05:19 Calculated Osmolality 325 (280-300) H 01/28/17 03:47 B-Natriuretic Peptide 2038 pg/mL (0-100) H 01/24/17 08:23 - Microbiology Findings Microbiology Findings: Microbiology, Last 48 Hours 01/25/17 09:00 Sputum Culture - Final Sputum - Clinical Findings Intake & Output: Intake & Output 01/28/17 01/28/17 01/28/17 07:59 15:59 23:59 Intake Total 90 / 90 Output Total 100 / 100 50 / 50 Balance -100 / -100 40 / 40 Weight 93.21 kg - Attending Attestation I saw the patient with the resident agree with History and Physical exam findings. Labs and Radiology were reviewed Was extubated yesterday had on and off BIPAP most tolerated nasal cannula BAG ADJUSTER: Patient is conscious following commands intubated will try to extubate her today NECK : No JVD appreciated Pulmonary : Patient has acute on chronic hypoxic respiratory failure complicated by COPD Vs CHF exacerbation complicated by pneumonia patient good improvement in lung mechanics today she has some increased work of breathing due to fluid overload , diastolic dysfunction due to A fib with RVR Cardiac : Hemodynamically stable Acute on Chronic systolic dysfunction with worsening of A fib with RVR continue cardizem drip Nutrition/GI: PPI prophylaxis Renal : TARAH on Chronic kidney injury after hydration renal function has improved , due to increased respiratory distress we stopped the fluids to give lasix . Heme onc : All Labs reviewed Hand H stable . Appreciate oncology consult for prognostication overall poor prognosis ID : To follow cultures to continue broad spectrum antibiotics Disposition : Remains critically ill Code status: Patient requested for second opinion was very particular but reinforced that she liked our care , agreed spoke with Branch Account Manager in [facility] accepted the patient sicne patient didnt want intubation so Code status was changed to DNR -DNI Spent 32 minutes of critical care time in medical decision making to prevent further vital organ decline and support of current vital organ Patient was transferred to [facility] at patient request , report was given personally given by me.
[2017-01-28] MEDS: Levalbuterol Neb 1.25 MG/3 ML IH SCH ×2 (08:39→11:18)
[2017-01-28] MEDS: Aspirin 81 MG TAB.CHEW PO SCH (08:40)
[2017-01-28] MEDS: Pantoprazole 40 MG VIAL IVP SCH (08:40)
[2017-01-28] MEDS: Chlorhexidine Rinse 15 ML MOUTHWASH MM SCH (08:41)
[2017-01-28] MEDS: dilTIAZem HCl 100 MG in D5% in Water 50 ML IVC SCH ×2 (08:48→12:32)
[2017-01-28] MEDS: Insulin DETEMIR 100 UNIT/ML X5UNITS SQ SCH (08:52)
[2017-01-28] MEDS ORDERED: Levalbuterol Neb 1.25 MG/3 ML IH ONE (11:17)
--- NOTE | 2017-01-28 11:25 | Nephrology Progress Note ---
Date of Encounter: 01/28/17 Time of Encounter: 11:23 - Assessment and Plan (1) Acute on chronic renal failure Current Visit: Yes Status: Acute Renal function slightly worse today. Appears to be prerenal/ATN based on her urine sodium/FeNa She was given IV fluids with subsequent dyspnea. Agree with holding hydration until respiratory status stabilizes. She may need furosemide especially given that she refuses re-intubation. Adjust medications for renal function. Discussed with Dr. Garcia. 34 minutes spent in the care of this critically ill patient. Had a discussion regarding her wishes about dialysis. At this time she is undecided and wants to "think about it". No immediate need for renal replacement therapy. Awaiting report from renal ultrasound. Awaiting UA. Qualifiers: Qualified Code(s): N17.9 - Acute kidney failure, unspecified; N18.4 - Chronic kidney disease, stage 4 (severe); N18.4 - Chronic kidney disease, stage 4 (severe); N18.4 - Chronic kidney disease, stage 4 (severe); N18.4 - Chronic kidney disease, stage 4 (severe) (2) Acute hypoxemic respiratory failure Current Visit: Yes Status: Acute Extubated 01/27/2017. Respiratory status worsened this am. I spoke with the primary team regarding the possible need for diuresis vs. bronchodilation. Clinically this is likely bronchoconstriction and I agree with bronchodilator trial before trying diuretics. Would also benefit from anxiolytic (on Precedex ) and rate control for her atrial fibrillation prior to trying diuretics. Patient's respiratory status is complicated by her history of COPD and lung cancer. (3) Pneumonia Current Visit: Yes Status: Suspected Antibiotics per primary team. Qualifiers: Qualified Code(s): J18.1 - Lobar pneumonia, unspecified organism (4) Type 2 diabetes mellitus Current Visit: No Status: Chronic Per primary team. Qualifiers: Qualified Code(s): E11.9 - Type 2 diabetes mellitus without complications; Z79.4 - terminal operator (current) use of insulin; Z79.4 - prison (current) use of insulin; Z79.4 - prison (current) use of insulin; Z79.4 - prison (current ) use of insulin Subjective Principal diagnosis: Acute and chronic respiratory failure with hypoxia Interval history: Patient seen and evaluated. Patient extubated 01/28/2017. At the time of evaluation she is quite dyspneic. Her is at her bedside. She is adamant that she does not want to be re-intubated. She denies pain. She states she is thinking about getting a second opinion at [facility] in [place]. She is undecided about receiving dialysis if needed. Objective - Vital Signs Vital signs: Vital Signs Temp Pulse Resp BP Pulse Ox 01/28/17 10:47 102 26 121/99 100 01/28/17 09:00 105 25 123/66 100 01/28/17 08:42 25 100 01/28/17 08:22 97.2 F L 01/28/17 08:00 97.2 F L 156 24 116/87 98 01/28/17 07:00 124 25 116/65 100 01/28/17 06:00 137 25 117/62 100 01/28/17 05:00 112 16 115/85 100 01/28/17 04:50 21 110/81 99 01/28/17 04:00 111 21 98/80 95 01/28/17 03:56 122 01/28/17 03:19 124 19 110/88 99 01/28/17 03:07 96.6 F L 01/28/17 01:00 114 21 110/93 99 01/28/17 00:20 118 16 108/76 96 01/28/17 00:08 23 108/76 99 01/27/17 23:10 17 89/67 99 01/27/17 23:00 97.7 F 111 21 89/67 94 01/27/17 22:00 106 22 77/57 92 01/27/17 21:00 100 20 89/66 93 01/27/17 20:00 108 19 91/68 100 01/27/17 19:49 19 80/61 98 01/27/17 19:40 120 01/27/17 19:30 97.9 F 01/27/17 19:00 120 18 99/81 97 01/27/17 18:00 116 18 93/61 98 01/27/17 17:00 141 18 84/64 96 01/27/17 16:48 97.6 F 01/27/17 16:17 18 96 01/27/17 16:00 97.6 F 107 18 101/69 98 01/27/17 15:00 96 18 88/64 96 01/27/17 14:00 101 18 80/64 93 01/27/17 13:00 112 18 119/77 93 01/27/17 12:00 96.4 F L 122 18 86/61 90 01/27/17 11:53 96.4 F L Intake and Output 01/27/17 01/28/17 01/28/17 23:59 07:59 15:59 Intake Total 260 / 260 Output Total 500 / 500 100 / 100 50 / 50 Balance -240 / -240 -100 / -100 -50 / -50 Intake: IV Fluids 260 / 260 PRECEDEX Premix 400 mcg In 100 60 / 60 ml @ 0.2 MCG/KG/HR 4.655 mls/hr IVC .[id number] [facility] Rx#: [id number] Zosyn Premix 3.375 GM/200 ML 3. 200 / 200 375 gm In 200 ml @ 50 mls/hr IVPB Q12HR [facility] Rx#:[id number] Output: Catheter 500 / 500 100 / 100 50 / 50 Other: Stool Size Copious Stool Consistency soft formed Stool Characteristics Normal for Patient Stool Color Brown Weight 93.21 kg Blood Glucose* 163 153 Patient Weight 01/28/17 23:59 Weight 93.21 kg - General Appearance General appearance: Present: well-developed, well-nourished, moderate distress EENT: Present: ATNC Respiratory: Present: wheezing, course breath sounds, rhonchi. Absent: rales Cardiology: Present: no edema, irregular rhythm Additional Comments: Irregular rhythm and tachycardic Gastrointestinal: Present: no tenderness Integumentary: Present: warm and dry Neurologic: Present: alert and oriented x3 Musculoskeletal: Present: no cyanosis Psychiatric: Present: agitated - Lab 01/28/17 03:47 01/28/17 03:47 Most recent lab results ABG pH 7.33 pH Units (7.32-7.45) 01/27/17 12:42 ABG pCO2 36 mmHg (35-45) 01/27/17 12:42 ABG pO2 113 mmHg (85-104) H 01/27/17 12:42 ABG HCO3 19 mEq/L (21-27) L 01/27/17 12:42 ABG O2 Saturation 98 % (95-98) 01/27/17 12:42 Calcium 9.0 mg/dL (8.6-10.8) 01/28/17 03:47 Phosphorus 4.0 mg/dL (2.3-4.7) 01/28/17 03:47 Magnesium 2.6 mg/dL (1.6-2.6) 01/28/17 03:47 Urine Creatinine 124 mg/dL 01/26/17 09:25 Urine Sodium < 20.0 mEq/L 01/26/17 09:25 Consult Discharge Plan - Plan Referrals: Linus Ritchie MD [Primary Care Provider] -
[2017-01-28] MEDS ORDERED: Furosemide 40 MG/4 ML VIAL IVP ONE (11:31)
[2017-01-28 12:04] LABS: ABG Base Excess -9 mEq/L (-2 to 3); ABG HCO3 15 mEq/L (21-27); ABG Oxygen Saturation 92 % (95-98); ABG PCO2 28 mmHg (35-45); ABG PH 7.35 pH Units (7.32-7.45); ABG PO2 67 mmHg (85-104); ABG TCO2 16 mEq/L (20-26)
[2017-01-28 12:09] VITALS: BP 104/84
[2017-01-28] MEDS: Dexmedetomidine HCl 400 MCG/100 ML MLS IVC SCH (12:26)
[2017-01-28] MEDS ORDERED: MethylPREDNISolone 40 MG/ML VIAL IVP SCH (20:00)
--- NOTE | 2017-01-29 11:00 | Discharge Summary ---
<Kerry Fraga H - Last Filed: 01/29/17 12:18> Date of Encounter: 01/29/17 Time of Encounter: 10:00 - Discharge Diagnosis (1) Acute and chronic respiratory failure with hypoxia Priority: Primary Status: Acute (2) Acute on chronic renal failure Priority: Secondary Status: Acute Qualifiers: Acute renal failure type: unspecified Chronic kidney disease stage: stage 4 (severe) Qualified Code(s): N17.9 - Acute kidney failure, unspecified; N18.4 - Chronic kidney disease, stage 4 (severe); N18.4 - Chronic kidney disease , stage 4 (severe); N18.4 - Chronic kidney disease, stage 4 (severe); N18.4 - Chronic kidney disease, stage 4 (severe) (3) Pneumonia Priority: Secondary Status: Suspected Qualifiers: Pneumonia type: due to unspecified organism Laterality: right Lung location: lower lobe of lung Qualified Code(s): J18.1 - Lobar pneumonia, unspecified organism (4) Acute exacerbation of chronic obstructive pulmonary disease (COPD) Priority: Secondary Status: Acute (5) Congestive heart failure Priority: Secondary Status: Acute Qualifiers: Congestive heart failure type: systolic Congestive heart failure chronicity : unspecified congestive heart failure chronicity Qualified Code(s): I50.20 - Unspecified systolic (congestive) heart failure (6) Squamous cell lung cancer Priority: Secondary Status: Chronic Qualifiers: Laterality: left Qualified Code(s): C34.92 - Malignant neoplasm of unspecified part of left bronchus or lung (7) Type 2 diabetes mellitus Priority: Secondary Status: Chronic Qualifiers: Diabetes mellitus complication status: without complication 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 insulin use: with prison use Qualified Code(s): E11.9 - Type 2 diabetes mellitus without complications; Z79.4 - [facility] (current) use of insulin; Z79.4 - director merit system (current) use of insulin; Z79.4 - [facility] ( current) use of insulin; Z79.4 - [facility] (current) use of insulin (8) DVT prophylaxis Priority: Secondary Status: Acute - Discharge Medications Home Medications: Clopidogrel [Plavix] 75 mg PO DAILY 05/15/15 [History] Aspirin Enteric Coated [Aspirin EC] 81 mg PO DAILY 07/17/15 [History] Ergocalciferol (VITAMIN D2) [Vitamin D2] 2,000 unit PO DAILY 07/17/15 [History] Isosorbide MONOnitrate (24 HR) [Imdur] 30 mg PO DAILY 06/08/16 [History] Diltiazem CD (24hr) [Cardizem CD] 120 mg PO DAILY 08/22/16 [History] Oxygen 2 l .ROUTE AD 08/22/16 [History] Levothyroxine [Synthroid] 75 mcg PO DAILY #30 tablet 01/20/17 [Rx] Albuterol Sulfate [Albuterol Inhaler] 1 - 2 puff IH Q6HR 01/24/17 [History] Tiotropium [Spiriva] 18 mcg IH DAILY 01/24/17 [History] Umeclidinium Landers [Incruse Ellipta] 62.5 mcg IH DAILY 01/24/17 [History] Allergies/Adverse Reactions: 3 Allergy/AdvReac Type Severity Reaction Status Date / Time No Known Allergies Allergy Verified 01/20/17 15:47 Labs on day of discharge: Labs from last 24 hours 01/28/17 11:59 Sample Site L Radial ABG pH 7.35 ABG pCO2 28 L ABG pO2 67 L ABG HCO3 15 L ABG Total CO2 16 L ABG O2 Saturation 92 L ABG Base Excess -9 L Mateo Test N/A O2 Delivery Device Cannula Inspired O2 4.0 - Impressions ITS Impressions Chest X-Ray 01/24/17 11:36 IMPRESSION: Unchanged large left pleural effusion and bilateral consolidations. D/ / Nando Ryan MD / Nando Ryan MD Interpreting Provider: Nando Ryan MD Echocardiogram Limited Views 01/25/17 07:32 Impressions: LVEF 40%. Mildly dilated left ventricle. Moderate global left ventricular systolic dysfunction. There is a small pericardial effusion present. There is no echocardiographic evidence of tamponade. No significant changes compared to prior report from 07/2016. Left Ventricular Wall Motion: Rest Echo Findings The apex, apical inferior, mid inferior, basal inferior, apical anterior, mid anterior, basal anterior, apical septal, mid inferior septal, basal inferior septal, apical lateral, mid anterior lateral, basal anterior lateral, mid anterior septal, mid inferior lateral, basal anterior septal and basal inferior lateral dyer were hypokinetic. Findings: Study Quality * Technically adequate exam. ECG Findings * Normal sinus rhythm. Left Ventricle * LVEF 40%. * Mildly dilated left ventricle. * Moderate global left ventricular systolic dysfunction. Right Ventricle * Normal right ventricular structure and function. Pericardium * There is a small pericardial effusion present. * There is no echocardiographic evidence of tamponade. Retroperitoneum Ultrasound 01/28/17 11:00 IMPRESSION: 1. Increased echogenicity of the kidneys can be seen with medical renal disease. 2. No hydronephrosis. D/ / Carroll Ortiz MD / Carroll Ortiz MD Interpreting Provider: Carroll Ortiz MD Date of admission: 01/24/17 11:04 Primary care physician: Linus Ritchie MD Consults: 01/24/17 11:35 Consult to Pulmonology [CONS] Routine Consulting Provider: Pulm [facility] Reason for Consult: Acute Hypoxic respiratory failure Call Completed: Yes 01/25/17 11:05 Consult to Palliative Care [CONS] Routine Comment: Consulting Provider: Palliative Care Carol Reason for Consult: goal of care discussion Call Completed: Yes 01/25/17 12:57 Consult to Oncology [CONS] Routine Consulting Provider: [facility] Reason for Consult: prognosis for squamous cell carcinoma Call Completed: No 01/26/17 10:42 Consult to Nephrology [CONS] Routine Consulting Provider: Kidney Carol/IRMA/ASHKAN/MICKI Reason for Consult: TARAH on chronic kidney disease stage 4 Call Completed: Yes Discharging clinician: Howard Garcia Anticipated date of discharge: 01/28/17 - Patient Status Disposition: Transfer Other Condition: Critical - Discharge Instructions Follow Up With: Linus Ritchie MD [Primary Care Provider] - - Hospital Course Hospital course: Ms. Piña is a 76 year old female with past medical history of squamous cell lung carcinoma on immunotherapy, COPD, coronary artery disease status post PCI LAD DOMINIK, systolic CHF (EF 40% per echo on 08/23/2016), A. fib with RVR on by mouth Cardizem, and CKD. Patient presented [facility] 01/[facility]/2017 with worsening shortness of breath for 3 days. She was noted to have oxygen saturation in the mid 80s upon EMS arrival. Patient's BNP was 2038. Chest x-ray suggested COPD with right basilar atelectasis versus pneumonia. Patient was started on IV Lasix, azithromycin, ceftriaxone, and Solu -Medrol in the emergency department. Upon arrival to the medical floor, a rapid response was called as patient demonstrated significant respiratory distress. Patient was started on BiPAP yet respiratory distress persisted. Patient was subsequently transferred to the ICU for intubation without complication. Patient was started on mechanical ventilation with sedation. Antibiotics were escalated to include vancomycin and zosyn. The patient was continued on steroids, Symbicort and broncho-dilators. Sputum cultures were ordered and demonstrated normal respiratory edward. Blood cultures were negative. Limited echocardiogram demonstrated LVEF of 40% with moderate left ventricular systolic dysfunction. There were no significant changes compared to prior report on July 2016. Hospitalization was complicated secondary to patient's worsening kidney function/TARAH on top of chronic renal disease stage IV. We suspected cardiorenal syndrome at one point therefore we held Lasix. However, patient's creatinine continued to trend upwards. Nephrology was consulted and determined her kidney injury was likely prerenal in nature. Renally toxic substances were held including vancomycin. Patient was started on gentle hydration which seemed to improve kidney function. Patient was successfully extubated on 01/27. While patient began to improve initially with gentle hydration, she developed increasing shortness of breath. Fluids were discontinued. Patient was noted to be in A. fib with RVR and a Cardizem drip was ordered. Patient's Symbicort was discontinued and patient was given Xopenex for COPD exacerbation. Despite renal function, we decided to resume treatment with furosemide as patient refusing repeat intubation. Patient requested a second opinion despite her declaration that she has received good care. We transferred to [facility] after speaking with the property valuer who accepted the patient. All questions were addressed. - Time Spent with Patient Total time spent providing and/or coordinating discharge services: Greater than 30 minutes (40 minutes) Physical Examination General appearance: appears uncomfortable Eyes: nonicteric ENT: oropharynx dry Neck: supple Effort: mildly labored Auscultation: bilateral: diminished breath sounds, wheezes, rales, rhonchi Cardiovascular: other Integumentary: normal (Tachycardia) Extremities: no cyanosis, pink and warm, pulses normal Musculoskeletal: no deformities normal mental status anxious <Howard Garcia S - Last Filed: 01/29/17 16:28> Date of Encounter: 01/29/17 - Impressions ITS Impressions Chest X-Ray 01/24/17 11:36 IMPRESSION: Unchanged large left pleural effusion and bilateral consolidations. D/ / Nando Ryan MD / Nando Ryan MD Interpreting Provider: Nando Ryan MD Echocardiogram Limited Views 01/25/17 07:32 Impressions: LVEF 40%. Mildly dilated left ventricle. Moderate global left ventricular systolic dysfunction. There is a small pericardial effusion present. There is no echocardiographic evidence of tamponade. No significant changes compared to prior report from 07/2016. Left Ventricular Wall Motion: Rest Echo Findings The apex, apical inferior, mid inferior, basal inferior, apical anterior, mid anterior, basal anterior, apical septal, mid inferior septal, basal inferior septal, apical lateral, mid anterior lateral, basal anterior lateral, mid anterior septal, mid inferior lateral, basal anterior septal and basal inferior lateral dyer were hypokinetic. Findings: Study Quality * Technically adequate exam. ECG Findings * Normal sinus rhythm. Left Ventricle * LVEF 40%. * Mildly dilated left ventricle. * Moderate global left ventricular systolic dysfunction. Right Ventricle * Normal right ventricular structure and function. Pericardium * There is a small pericardial effusion present. * There is no echocardiographic evidence of tamponade. Retroperitoneum Ultrasound 01/28/17 11:00 IMPRESSION: 1. Increased echogenicity of the kidneys can be seen with medical renal disease. 2. No hydronephrosis. D/ / Carroll Ortiz MD / Carroll Ortiz MD Interpreting Provider: Carroll Ortiz MD Date of admission: 01/24/17 11:04 Primary care physician: Linus Ritchie MD Consults: 01/24/17 11:35 Consult to Pulmonology [CONS] Routine Consulting Provider: Pulm [facility] Reason for Consult: Acute Hypoxic respiratory failure Call Completed: Yes 01/25/17 11:05 Consult to Palliative Care [CONS] Routine Comment: Consulting Provider: Palliative Care Carol Reason for Consult: goal of care discussion Call Completed: Yes 01/25/17 12:57 Consult to Oncology [CONS] Routine Consulting Provider: [facility] Reason for Consult: prognosis for squamous cell carcinoma Call Completed: No 01/26/17 10:42 Consult to Nephrology [CONS] Routine Consulting Provider: Kidney Carol/IRMA/ASHKAN/MICKI Reason for Consult: TARAH on chronic kidney disease stage 4 Call Completed: Yes - Hospital Course Hospital course: I agree with the above documentation which is the hospital course of the patient. - Time Spent with Patient Total time spent providing and/or coordinating discharge services: - Attending Attestation I agree with above documentation by the resident with few additional comments . Got a arterial blood gas before transfer which showed some some metabolic acidosis with respiratory compensation , since patient didnt want intubation for the ride patient code status was changed to DNRCCA -DNI , Patient was transferred to [facility] due to patient request.
== END 2017-01-28 12:35 | disposition other institution (70) | DRG 208 ==
LOC: EMEROO 07:43 → 2NENU 07:43 → ICNU 11:03
PROVIDERS: ADMIT Internal Medicine Pulmonary Disease; ATTEND Hospitalist